=== PATIENT | female | born 1945 | race Caucasian/White ===

== ENCOUNTER 2017-05-02 18:55 | Inpatient (IN) | payer MEDICARE, OTHER ==
[2017-05-02] VITALS (10 sets, daily range): BP systolic 94–135; BP diastolic 60–92; PULSE 77–102; RESP 18–25; TEMP 98.1; O2SAT 90–100
[2017-05-02] MEDS ORDERED: SODIUM CHLORID 0.9% 500 ML INJ 500 ML IV ONE (19:15)
[2017-05-02] MEDS ORDERED: SODIUM CHLORIDE 0.9% FLUSH 10 ML FLUSH IVF PRN (19:15)
[2017-05-02] MEDS ORDERED: ASPIRIN 81 MG CHEW TAB OG-TUBE ONE (19:15)
--- NOTE | 2017-05-02 19:22 | RADRPT ---
EXAM DATE/TIME: 05/02/2017 19:04 [facility] COMPARISON: No previous studies available for comparison. INDICATIONS : Syncope. RADIATION DOSE: 56.35 CTDIvol (mGy) MEDICAL HISTORY : Non-responsive. SURGICAL HISTORY : Non-responsive. ENCOUNTER: Initial ACUITY: 1 day PAIN SCALE: Non-responsive LOCATION: cranial TECHNIQUE: Multiple contiguous axial images were obtained of the head. Using automated exposure control and adj ustment of the mA and/or kV according to patient size, radiation dose was kept as low as reasonably a chievable to obtain optimal diagnostic quality images. DICOM format image data is available electro nically for review and comparison. FINDINGS: CEREBRUM: The ventricles are normal for age. No evidence of midline shift, mass lesion, hemorrhage or acute in farction. No extra-axial fluid collections are seen. POSTERIOR FOSSA: The cerebellum and brainstem are intact. The 4th ventricle is midline. The cerebellopontine angle i s unremarkable. EXTRACRANIAL: The visualized portion of the orbits is intact. SKULL: The calvaria is intact. No evidence of skull fracture. CONCLUSION: 1. No acute intracranial abnormalities. Erik Javed MD on May 02, 2017 at 19:17 Board Certified Radiologist. This report was verified electronically.
--- NOTE | 2017-05-02 19:24 | PD ---
HPI Chief Complaint: cardiopulmonary arrest Time Seen by Provider: 19:01 Travel History International Travel<30 days: No Contact w/Intl Traveler<30days: No Traveled to known affect area: No History of Present Illness HPI The patient is approximately a 70-80 year-old female who presents to the emergency department via EMS after a syncopal episode. EMS states the patient was sitting on a bench when she apparently had a syncopal episode. When EMS arrived they stated the patient's GCS was 3, she has spontaneous circulation with a positive radial pulse, and had spontaneous breathing. When they place the patient into the ambulance struck they stated she became agonal with respirations and then went into ventricular fibrillation. EMS states that they defibrillated the patient twice, she received 1 mg of epinephrine intravenously, and CPR was performed for 5 minutes. EMS states they got return of spontaneous circulation with initial heart rate in the 130s to 140s. They felt there was possible ST elevation in 2, 3, and aVF, therefore, called a STEMI in the field. Upon arrival the patient is intubated, she required no medications for intubation, with an IO in the left lower extremity. The patient was nonverbal, intubated, not withdrawing to pain. The patient initially had no family members or friends with her, no past medical history was noted. [facility] Past Medical History Medical History: Unable to Obtain Past Surgical History Surgical History: Unable to Obtain Social History Tobacco Use: No (unable to obtain) Allergies-Medications (Allergen,Severity, Reaction): Coded Allergies: No Allergy Information Available (Unverified , 05/02/17) Intubated Reported Meds & Prescriptions Reported Meds & Active Scripts Active Review of Systems ROS Limitations: Intubated Except as stated in HPI: all other systems reviewed are Neg Physical Exam Exam Limitations: Clinical Condition Narrative GENERAL: GCS of 3, intubated. SKIN: Focused skin assessment warm/dry. HEAD: Atraumatic. Normocephalic. EYES: Pupils equal and round. Pupils 2-3 mm bilateral and reactive. ENT: No nasal bleeding or discharge. Endotracheal tube in place. NECK: Trachea midline. No JVD. CARDIOVASCULAR: Regular, tachycardic with a heart rate of 110. RESPIRATORY: Bilateral breath sounds via bag valve ventilation. GASTROINTESTINAL: Abdomen soft, non-tender, nondistended. Hepatic and splenic margins not palpable. MUSCULOSKELETAL: No obvious deformities. No clubbing. No cyanosis. No edema. Eyes EOM place left lower extremity. NEUROLOGICAL: GCS of 3. Does not withdraw to pain. Eyes closed, nonverbal with endotracheal tube in place. PSYCHIATRIC: Unable to assess. Data Data Last Documented VS Vital Signs Date Time Temp Pulse Resp B/P (MAP) Pulse Ox O2 Delivery O2 Flow Rate FiO2 05/02/17 19:10 100 100 05/02/17 18:55 98.1 88 18 123/75 (91) Orders Orders Ckmb (Isoenzyme) Profile (05/02/17 19:) Complete Blood Count With Diff (05/02/17 19:) Comprehensive Metabolic Panel (05/02/17:) Magnesium (Mg) (05/02/17:) Prothrombin Time / Inr (Pt) (05/02/17:) Act Partial Throm Time (Ptt) (05/02/17:) Troponin I (05/02/17:) Chest, Single Ap (05/02/17:) Ecg Monitoring (05/02/17:) Bilateral Bp Monitoring (05/02/17 19:) Iv Access Insert/Monitor (05/02/17 19:) Oximetry (05/02/17 19:) Oxygen Administration (05/02/17:) Aspirin Chew (Aspirin Chew) (05/02/17 19:15) Sodium Chloride 0.9% Flush (Ns Flush) (05/02/17 19:15) Sodium Chlorid 0.9% 500 Ml Inj (Ns 500 M (05/02/17 19:15) Ct Brain W/O Iv Contrast(Rout) (05/02/17 ) Admit Order (Ed Use Only) (05/02/17 19:17) CKMB (05/02/17 19:14) CKMB% (05/02/17 19:14) Labs Laboratory Tests Test 05/02/17 19:14 White Blood Count 9.1 TH/MM3 Red Blood Count 3.70 MIL/MM3 Hemoglobin 11.4 GM/DL Hematocrit 33.8 % Mean Corpuscular Volume 91.4 FL Mean Corpuscular Hemoglobin 30.9 PG Mean Corpuscular Hemoglobin Concent 33.8 % Red Cell Distribution Width 13.1 % Platelet Count 265 TH/MM3 Mean Platelet Volume 9.2 FL Neutrophils (%) (Auto) 40.5 % Lymphocytes (%) (Auto) 51.2 % Monocytes (%) (Auto) 6.5 % Eosinophils (%) (Auto) 1.1 % Basophils (%) (Auto) 0.7 % Neutrophils # (Auto) 3.7 TH/MM3 Lymphocytes # (Auto) 4.7 TH/MM3 Monocytes # (Auto) 0.6 TH/MM3 Eosinophils # (Auto) 0.1 TH/MM3 Basophils # (Auto) 0.1 TH/MM3 CBC Comment DIFF FINAL Differential Comment Prothrombin Time 10.6 SEC Prothromb Time International Ratio 1.0 RATIO Activated Partial Thromboplast Time 22.4 SEC Blood Urea Nitrogen 14 MG/DL Creatinine 1.05 MG/DL Random Glucose 203 MG/DL Total Protein 6.7 GM/DL Albumin 3.4 GM/DL Calcium Level 7.9 MG/DL Magnesium Level 2.0 MG/DL Alkaline Phosphatase 65 U/L Aspartate Amino Transf (AST/SGOT) 106 U/L Alanine Aminotransferase (ALT/SGPT) 103 U/L Total Bilirubin 0.4 MG/DL Sodium Level 140 MEQ/L Potassium Level 3.3 MEQ/L Chloride Level 108 MEQ/L Carbon Dioxide Level 17.6 MEQ/L Anion Gap 14 MEQ/L Estimat Glomerular Filtration Rate 45 ML/MIN Total Creatine Kinase 164 U/L Creatine Kinase MB 2.5 NG/ML Troponin I LESS THAN 0.02 NG/ML MDM Medical Decision Making Medical Screen Exam Complete: Yes Emergency Medical Condition: Yes Medical Record Reviewed: Yes Interpretation(s) EKG reveals sinus rhythm with occasional supraventricular premature complex. Q wave noted in lead 2, 3, and aVF. Nonspecific T wave changes with inverted T waves noted in the lateral leads. Laboratory Tests Test 05/02/17 19:14 White Blood Count 9.1 TH/MM3 Red Blood Count 3.70 MIL/MM3 Hemoglobin 11.4 GM/DL Hematocrit 33.8 % Mean Corpuscular Volume 91.4 FL Mean Corpuscular Hemoglobin 30.9 PG Mean Corpuscular Hemoglobin Concent 33.8 % Red Cell Distribution Width 13.1 % Platelet Count 265 TH/MM3 Mean Platelet Volume 9.2 FL Neutrophils (%) (Auto) 40.5 % Lymphocytes (%) (Auto) 51.2 % Monocytes (%) (Auto) 6.5 % Eosinophils (%) (Auto) 1.1 % Basophils (%) (Auto) 0.7 % Neutrophils # (Auto) 3.7 TH/MM3 Lymphocytes # (Auto) 4.7 TH/MM3 Monocytes # (Auto) 0.6 TH/MM3 Eosinophils # (Auto) 0.1 TH/MM3 Basophils # (Auto) 0.1 TH/MM3 CBC Comment DIFF FINAL Differential Comment Prothrombin Time 10.6 SEC Prothromb Time International Ratio 1.0 RATIO Activated Partial Thromboplast Time 22.4 SEC Blood Urea Nitrogen 14 MG/DL Creatinine 1.05 MG/DL Random Glucose 203 MG/DL Total Protein 6.7 GM/DL Albumin 3.4 GM/DL Calcium Level 7.9 MG/DL Magnesium Level 2.0 MG/DL Alkaline Phosphatase 65 U/L Aspartate Amino Transf (AST/SGOT) 106 U/L Alanine Aminotransferase (ALT/SGPT) 103 U/L Total Bilirubin 0.4 MG/DL Sodium Level 140 MEQ/L Potassium Level 3.3 MEQ/L Chloride Level 108 MEQ/L Carbon Dioxide Level 17.6 MEQ/L Anion Gap 14 MEQ/L Estimat Glomerular Filtration Rate 45 ML/MIN Total Creatine Kinase 164 U/L Creatine Kinase MB 2.5 NG/ML Troponin I LESS THAN 0.02 NG/ML Last Impressions Chest X-Ray 05/02/17 1901 Signed Impressions: Service Date/Time: Tuesday, May 02, 2017 19:25 - CONCLUSION: 1. Endotracheal tube tip in proximal right mainstem bronchus. Dependent atelectasis in the lungs. No pneumothorax. Erik Javed MD Head CT 05/02/17 0000 Signed Impressions: Service Date/Time: Tuesday, May 02, 2017 19:04 - CONCLUSION: 1. No acute intracranial abnormalities. Erik Javed MD Differential Diagnosis Differential diagnosis includes STEMI, ventricular arrhythmia, dysrhythmia, syncope, electrolyte abnormality. Narrative Course IV was established, labs are drawn and sent, the patient was placed on cardiac telemetry monitoring and continuous pulse ox imaging monitoring. The patient was noted to have positive femoral pulses and positive radial pulses, GCS of 3 who is not withdrawing to pain. CT of the brain was obtained. Chest x-ray was ordered. I immediately called the stem dryer maintainer on-call, Dr. Moy, who recommends no amiodarone and less serious repeat of the arrhythmia. I then called the on-call dimpling machine operator, Dr. Soto, who immediately came to the emergency department to evaluate the patient for possible code kill. The patient then went to the CT suite. I did order aspirin 162 mg via the OG tube. The patient was evaluated by the dimpling machine operator and the stem dryer maintainer in the emergency department and will be admitted to the intensive care unit for therapeutic hypothermia. Critical Care Narrative Aggregate critical care time was 40 minutes. Time to perform other separately billable procedures was not included in the critical care time. My time did not include minutes spent treating any other patients simultaneously or on activities that did not directly contribute to the patient's treatment. The services I provided to this patient were to treat and/or prevent clinically significant deterioration that could result in: Anoxia, hypoxia, arrhythmia, sudden . I provided critical care services requiring my management, as noted below: Chart data review, documentation time, medication orders and management, vital sign assessments/reviewing monitor data, ordering and reviewing lab tests, ordering and interpreting/reviewing x-rays and diagnostic studies, care of the patient and discussion of the patient with the admitting physicians. Physician Communication Physician Communication I discussed the patient with Dr. Soto who agrees with admission. Diagnosis Primary Impression: Ventricular fibrillation Additional Impression: Syncope Qualified Codes: R55 - Syncope and collapse Admitting Information Admitting Physician Requests: Admit Condition: Critical Dagoberto Sahni MD May 02, 2017 19:24
[2017-05-02] MEDS ORDERED: CHLORHEXIDINE GLUCONATE 2 % 1 PACK (2 CLOTHS) TOP PRN (19:30)
[2017-05-02] MEDS ORDERED: BISACODYL 10 MG SUPP RECTAL PRN (19:30)
[2017-05-02] MEDS ORDERED: RESP: ALBUTEROL 2.5 MG/IPRATROPIUM 0.5 MG NEB (PRN) INH (19:30)
[2017-05-02] MEDS ORDERED: MORPHINE SULFATE 4 MG/ML INJ IV PUSH PRN (19:30)
[2017-05-02] MEDS ORDERED: LACTULOSE SYRUP 20 GM/30 ML CUP PO PRN (19:30)
[2017-05-02] MEDS ORDERED: ACETAMINOPHEN 325 MG TAB PO PRN (19:30)
[2017-05-02] MEDS ORDERED: ONDANSETRON HCL 4 MG/2 ML VIAL IV PUSH PRN (19:30)
[2017-05-02] MEDS ORDERED: MISCELLANEOUS NURSING INFORMATION XX SCH (19:30)
[2017-05-02] MEDS ORDERED: SENNOSIDES 8.6 MG TAB PO PRN (19:30)
[2017-05-02] MEDS ORDERED: MAGNESIUM HYDROXIDE SUSP 30 ML CUP PO PRN (19:30)
[2017-05-02] MEDS ORDERED: SODIUM CHLORIDE 0.9% FLUSH 10 ML FLUSH IV FLUSH PRN (19:30)
--- NOTE | 2017-05-02 19:38 | RADRPT ---
EXAM DATE/TIME: 05/02/2017 19:25 [facility] COMPARISON: No previous studies available for comparison. INDICATIONS : STEMI ALERT. MEDICAL HISTORY : None. SURGICAL HISTORY : None. ENCOUNTER: Initial ACUITY: 1 day PAIN SCORE: Non-responsive. LOCATION: Bilateral chest FINDINGS: Endotracheal tube tip is in proximal right mainstem bronchus. This should be withdrawn about 3 cm. Mi nimal basilar atelectasis. No pneumothorax or effusion. CONCLUSION: 1. Endotracheal tube tip in proximal right mainstem bronchus. Dependent atelectasis in the lungs. No pneumothorax. Erik Javed MD on May 02, 2017 at 19:35 Board Certified Radiologist. This report was verified electronically.
[2017-05-02 20:15] LABS: AUTOMATED NEUTROPHIL # 3.7 TH/MM3 (1.8-7.7); BASOPHIL # 0.1 TH/MM3 (0-0.2); BASOPHIL % 0.7 % (0.0-2.0); EOSINOPHIL # 0.1 TH/MM3 (0-0.4); EOSINOPHIL % 1.1 % (0.0-4.0); HEMATOCRIT 33.8 % (35.0-46.0); HEMO FLAGS DIFF FINAL; LYMPH % 51.2 % (9.0-44.0); LYMPHOCYTE # 4.7 TH/MM3 (1.0-4.8); MEAN CELL VOLUME 91.4 FL (80.0-100.0); MEAN CORPUSCULAR HEMOGLOBIN 30.9 PG (27.0-34.0); MEAN CORPUSCULAR HGB CONC 33.8 % (32.0-36.0); MONO % 6.5 % (0.0-8.0); NEUT % 40.5 % (16.0-70.0); PLATELET COUNT 265 TH/MM3 (150-450); RED CELL DISTRIBUTION WIDTH 13.1 % (11.6-17.2); WHITE BLOOD COUNT 9.1 TH/MM3 (4.0-11.0)
[2017-05-02] MEDS ORDERED: PROPOFOL 500 MG/50 ML INJ 50 ML ONE (20:15)
[2017-05-02 20:24] LABS: APTT (PATIENT) 22.4 SEC (24.3-30.1); PROTHROMBIN TIME - PATIENT 10.6 SEC (9.8-11.6)
[2017-05-02] MEDS ORDERED: MIDAZOLAM HCL 5 MG/ML VIAL (1 ML) ONE (20:38)
[2017-05-02 20:43] LABS: ANION GAP 14 MEQ/L (5-15); AST (GOT) 106 U/L (15-37); BICARBONATE 17.6 MEQ/L (21.0-32.0); BLOOD UREA NITROGEN 14 MG/DL (7-18); CHLORIDE 108 MEQ/L (98-107); GLOMERULAR FILTRATION RATE 45 ML/MIN (>89); POTASSIUM 3.3 MEQ/L (3.5-5.1); SODIUM (NA) 140 MEQ/L (136-145)
[2017-05-02 20:44] LABS: ALT (GPT) 103 U/L (10-53)
[2017-05-02 20:48] LABS: ALKALINE PHOSPHATASE 65 U/L (45-117); CREATINE KINASE 164 U/L (26-192); TOTAL BILIRUBIN ADULT 0.4 MG/DL (0.2-1.0)
[2017-05-02 21:00] LABS: CKMB 2.5 NG/ML (0.5-3.6)
[2017-05-02] MEDS ORDERED: PROPOFOL 500 MG/50 ML INJ 50 ML IV ONE (21:00)
[2017-05-02] MEDS ORDERED: MIDAZOLAM HCL 5 MG/ML VIAL (1 ML) IV ONE (21:00)
[2017-05-02] MEDS: DOCUSATE SODIUM 50 MG/SENNA 8.6 MG TAB PO SCH (21:00)
[2017-05-02 21:29] LABS: BLOOD GAS CARBOXYHEMOGLOBIN 0.7 % (0-4); BLOOD GAS HCO3 22 mmol/L (22-26); BLOOD GAS METHEMOGLOBIN 1.1 % (0-2); BLOOD GAS O2 HGB SATURATION 98 % (90-100); BLOOD GAS OXYGEN CONTENT 17.1 Vol % (12.0-20.0); BLOOD GAS PCO2 38 mmHg (38-42); BLOOD GAS PO2 323 mmHg (61-120); BLOOD GAS TOTAL HGB 11.8 G/DL (12.0-16.0); TEMP CORR TO 98.6
[2017-05-02 21:30] LABS: CRITICAL VALUE NO; DRAW SITE RT BRACHIAL; FIO2 100 %; NUMBER OF ARTERIAL PUNCTURES 1; OXYGEN DEVICE VENTILATOR; STAT NO; VENT SETTINGS 18/500/IT1.0/5PEEP
--- NOTE | 2017-05-02 22:18 | HHI.HP ---
HPI Service Critical Care Medicine Primary Care Physician Unknown Admission Diagnosis syncope, ventricular fibrillation Diagnosis: Travel History International Travel<30 Days: No Contact w/Intl Traveler <30 Da: No Traveled to Known Affected Are: No History of Present Illness 60-70 something year-old female who presents after a syncopal episode. EMS states the patient was sitting on a bench when she apparently had a syncopal episode. When EMS arrived she was GCS was 3, she has spontaneous circulation with a positive radial pulse, and had spontaneous breathing. When they place the patient into the ambulance truck she became agonal with respirations and then went into ventricular fibrillation. They defibrillated the patient twice, she received 1 mg of epinephrine intravenously, and CPR was performed for 5 minutes. EMS states they got return of spontaneous circulation with initial heart rate in the 130s to 140s. They felt there was possible ST elevation in 2 , 3, and aVF, therefore, called a STEMI in the field. Upon arrival the patient is intubated, she required no medications for intubation, with an IO in the left lower extremity. During my evaluation and assessment patient was nonverbal , intubated, not withdrawing to pain. She was immediately evaluated by Dr. Greene senior php developer on-call who is planning to proceed further cardiac workup if there is meaningful neurological improvement. Due to poor neurological exam the therapeutic hypothermia protocol was initiated. Shortly after the transfer to ICU patient starts withdrawing to pain neurologically improving. Review of Systems ROS Unobtainable patient sedated and intubated Past Family Social History Allergies: Coded Allergies: No Allergy Information Available (Unverified , 05/02/17) Intubated Past Medical History Unobtainable Past Surgical History Unobtainable Reported Medications Unobtainable Active Ordered Medications Current Medications Medications (Trade) Dose Ordered Sig/Dana Route PRN Reason Start Time Stop Time Status Last Admin Dose Admin Sodium Chloride 1,000 ml @ 84 mls/hr [id number] IV 05/02/17 20:00 05/02/17 22:54 Sodium Chloride (NS Flush) 2 ml UNSCH PRN IV FLUSH FLUSH AFTER USING IV ACCESS 05/02/17 19:30 Sodium Chloride (NS Flush) 2 ml BID IV FLUSH 05/02/17 21:00 05/02/17 22:56 Acetaminophen (Tylenol) 650 mg Q6H PRN PO PAIN 1-5 AND/OR FEVER >101F 05/02/17 19:30 Morphine Sulfate (Morphine Inj) 2 mg Q2H PRN IV PUSH PAIN SCALE 6 TO 10 05/02/17 19:30 Famotidine (Pepcid Inj) 20 mg Q12HR IV PUSH 05/02/17 21:00 05/02/17 23:02 Artificial Tears (Tears Naturale Opth Soln) 1 drop TID EACH EYE 05/03/17 09:00 Ondansetron HCl (Zofran Inj) 4 mg Q6H PRN IV PUSH NAUSEA OR VOMITING 05/02/17 19:30 Albuterol/ Ipratropium (Duoneb Neb) 1 ampule Q6HR NEB INH 05/02/17 22:00 05/02/17 22:59 Albuterol/ Ipratropium (Duoneb Neb) 1 ampule Q2HR NEB PRN INH WHEEZING 05/02/17 19:30 Heparin Sodium (Porcine) (Heparin Inj) 5,000 units Q8H SQ 05/02/17 20:00 05/02/17 23:01 Miscellaneous Information 1 [id number] XX 05/02/17 19:30 Chlorhexidine Gluconate (Chlorhexidine 2% Cloth) 3 pack Taper DAILY@04 TOP 05/03/17 04:00 04/29/18 03:59 Chlorhexidine Gluconate (Chlorhexidine 2% Cloth) 3 pack UNSCH PRN TOP HYGIENIC CARE 05/02/17 19:30 Senna/Docusate Sodium (Senia-Colace) 1 tab BID PO 05/02/17 21:00 Magnesium Hydroxide (Milk Of Magnesia Liq) 30 ml Q12H PRN PO Mild constipation 05/02/17 19:30 Sennosides (Senokot) 17.2 mg Q12H PRN PO Moderate constipation 05/02/17 19:30 Bisacodyl (Dulcolax Supp) 10 mg DAILY PRN RECTAL SEVERE CONSITIPATION 05/02/17 19:30 Lactulose (Lactulose Liq) 30 ml DAILY PRN PO SEVERE CONSITIPATION 05/02/17 19:30 Chlorhexidine Gluconate (Peridex 0.12% Liq) 15 ml BID@08,20 MT 05/02/17 20:00 05/02/17 22:55 Propofol 100 ml @ 2.139 mls/ hr TITRATE PRN IV SEDATION 05/02/17 22:30 05/03/17 00:38 Midazolam HCl 100 ml @ 2 mls/hr TITRATE PRN IV SEDATION 05/02/17 22:45 05/02/17 22:39 Fentanyl Citrate 250 ml @ 5 mls/hr TITRATE PRN IV Sedation 05/02/17 22:45 Miscellaneous Information D/C ICU ELECTROLYTE ORDERS... UNSCH PRN .XX SEE DOSE INSTRUCTIONS 05/03/17 00:30 Miscellaneous Information ICU - CALL ORDERING PHYSIC... UNSCH PRN .XX SEE DOSE INSTRUCTIONS 05/03/17 00:30 Potassium Chloride 100 ml @ 25 mls/hr UNSCH PRN IV ELECTROLYTE REPLACEMENT 05/03/17 00:30 05/03/17 00:38 Potassium Bicarb/ Potassium Chloride (K-Lyte Cl Eff) 50 meq UNSCH PRN PO ELECTROLYTE REPLACEMENT 05/03/17 00:30 Potassium Chloride 100 ml @ 50 mls/hr UNSCH PRN IV ELECTROLYTE REPLACEMENT 05/03/17 00:30 Magnesium Sulfate 4 gm/Sodium Chloride 108 ml @ 54 mls/hr UNSCH PRN IV ELECTROLYTE REPLACEMENT 05/03/17 00:30 Magnesium Sulfate 2 gm/Sodium Chloride 104 ml @ 52 mls/hr UNSCH PRN IV ELECTROLYTE REPLACEMENT 05/03/17 00:30 Magnesium Oxide (Mag-Ox) 800 mg UNSCH PRN PO ELECTROLYTE REPLACEMENT 05/03/17 00:30 Sodium Phosphate 30 mmol/Sodium Chloride 260 ml @ 43.333 mls/ hr UNSCH PRN IV ELECTROLYTE REPLACEMENT 05/03/17 00:30 Potassium Phosphate (K-Phos) 2,000 mg UNSCH PRN PO ELECTROLYTE REPLACEMENT 05/03/17 00:30 Potassium Phosphate 30 mmol/ Sodium Chloride 260 ml @ 43.333 mls/ hr UNSCH PRN IV ELECTROLYTE REPLACEMENT 05/03/17 00:30 Family History Unobtainable Social History Unobtainable Physical Exam Vital Signs Vital Signs Date Time Temp Pulse Resp B/P (MAP) Pulse Ox O2 Delivery O2 Flow Rate FiO2 05/02/17 19:40 93 100 05/02/17 19:30 98 100 05/02/17 19:10 100 100 05/02/17 18:55 98.1 88 18 123/75 (91) 99 Physical Exam GENERAL: The patient is comatose and intubated SKIN: Focused skin assessment warm/dry. HEAD: Atraumatic. Normocephalic. EYES: Pupils equal and round. Pupils 2-3 mm bilateral and reactive. ENT: No nasal bleeding or discharge. Endotracheal tube in place. NECK: Trachea midline. No JVD. CARDIOVASCULAR: Regular, tachycardic with a heart rate of 110. RESPIRATORY: Bilateral breath sounds via bag valve ventilation. GASTROINTESTINAL: Abdomen soft, non-tender, nondistended. Hepatic and splenic margins not palpable. MUSCULOSKELETAL: No obvious deformities. No clubbing. No cyanosis. No edema. Eyes EOM place left lower extremity. NEUROLOGICAL: GCS of 3. Does not withdraw to pain. Eyes closed, nonverbal with endotracheal tube in place. Laboratory Laboratory Tests Test 05/02/17 19:14 05/02/17 21:15 05/02/17 21:53 White Blood Count 9.1 Red Blood Count 3.70 Hemoglobin 11.4 Hematocrit 33.8 Mean Corpuscular Volume 91.4 Mean Corpuscular Hemoglobin 30.9 Mean Corpuscular Hemoglobin Concent 33.8 Red Cell Distribution Width 13.1 Platelet Count 265 Mean Platelet Volume 9.2 Neutrophils (%) (Auto) 40.5 Lymphocytes (%) (Auto) 51.2 Monocytes (%) (Auto) 6.5 Eosinophils (%) (Auto) 1.1 Basophils (%) (Auto) 0.7 Neutrophils # (Auto) 3.7 Lymphocytes # (Auto) 4.7 Monocytes # (Auto) 0.6 Eosinophils # (Auto) 0.1 Basophils # (Auto) 0.1 CBC Comment DIFF FINAL Differential Comment Prothrombin Time 10.6 Prothromb Time International Ratio 1.0 Activated Partial Thromboplast Time 22.4 Blood Urea Nitrogen 14 Creatinine 1.05 Random Glucose 203 Total Protein 6.7 Albumin 3.4 Calcium Level 7.9 Magnesium Level 2.0 Alkaline Phosphatase 65 Aspartate Amino Transf (AST/SGOT) 106 Alanine Aminotransferase (ALT/SGPT) 103 Total Bilirubin 0.4 Sodium Level 140 Potassium Level 3.3 Chloride Level 108 Carbon Dioxide Level 17.6 Anion Gap 14 Estimat Glomerular Filtration Rate 45 Total Creatine Kinase 164 Creatine Kinase MB 2.5 Troponin I LESS THAN 0.02 Blood Gas Puncture Site RT BRACHIAL Blood Gas Patient Temperature 98.6 Blood Gas HCO3 22 Blood Gas Base Excess -2.0 Blood Gas Oxygen Saturation 98 Arterial Blood pH 7.39 Arterial Blood Partial Pressure CO2 38 Arterial Blood Partial Pressure O2 323 Arterial Blood Oxygen Content 17.1 Arterial Blood Carboxyhemoglobin 0.7 Arterial Blood Methemoglobin 1.1 Blood Gas Hemoglobin 11.8 Oxygen Delivery Device VENTILATOR Blood Gas Ventilator Setting 18/500/IT1.0/5PEEP Blood Gas Inspired Oxygen 100 Result Diagram: 05/02/17191305/02/171913 Imaging Last 24 hours Impressions Chest X-Ray 05/02/171900 Signed Impressions: Service Date/Time: Tuesday, May 02, 2017 19:25 - CONCLUSION: 1. Endotracheal tube tip in proximal right mainstem bronchus. Dependent atelectasis in the lungs. No pneumothorax. Erik Javed MD Septic Shock Reassessment Septic shock perfusion: reassessment completed Caprini VTE Risk Assessment Caprini VTE Risk Assessment: Mod/High Risk (score >= 2) Caprini Risk Assessment Model Point Value = 1 Point Value = 2 Point Value = 3 Point Value = 5 Age 41-60 Minor surgery BMI > 25 kg/m2 Swollen legs Varicose veins or History of unexplained or recurrent spontaneous Oral contraceptives or hormone replacement Sepsis (< 1 month) Serious lung disease, including pneumonia (< 1 month) Abnormal pulmonary function Acute myocardial infarction Congestive heart failure (< 1 month) History of inflammatory bowel disease Medical patient at bed rest Age 61-74 Arthroscopic surgery Major open surgery (> 45 min) Laparoscopic surgery (> 45 min) Malignancy Confined to bed (> 72 hours) Immobilizing plaster cast Central venous access Age >= 75 History of VTE Family history of VTE Factor V Leiden Prothrombin [id number] Lupus anticoagulant Anticardiolipin antibodies Elevated serum homocysteine Heparin-induced thrombocytopenia Other congenital or acquired thrombophilia Stroke (< 1 month) Elective arthroplasty Hip, pelvis, or leg fracture Acute spinal cord injury (< 1 month) Prophylaxis Regimen Total Risk Factor Score Risk Level Prophylaxis Regimen 0-1 Low Early ambulation 2 Moderate Order ONE of the following: *Sequential Compression Device (SCD) *Heparin 5000 units SQ BID 3-4 Higher Order ONE of the following medications: *Heparin 5000 units SQ TID *Enoxaparin/Lovenox 40 mg SQ daily (WT < 150 kg, CrCl > 30 mL/min) *Enoxaparin/Lovenox 30 mg SQ daily (WT < 150 kg, CrCl > 10-29 mL/min) *Enoxaparin/Lovenox 30 mg SQ BID (WT < 150 kg, CrCl > 30 mL/min) AND/OR *Sequential Compression Device (SCD) 5 or more Highest Order ONE of the following medications: *Heparin 5000 units SQ TID (Preferred with Epidurals) *Enoxaparin/Lovenox 40 mg SQ daily (WT < 150 kg, CrCl > 30 mL/min) *Enoxaparin/Lovenox 30 mg SQ daily (WT < 150 kg, CrCl > 10-29 mL/min) *Enoxaparin/Lovenox 30 mg SQ BID (WT < 150 kg, CrCl > 30 mL/min) AND *Sequential Compression Device (SCD) Assessment and Plan Assessment and Plan Respiratory failure - Intubated for an airway protection - No weaning until neurologically improved - Continue mechanical ventilation - DuoNeb scheduled and when necessary - Vent bundle Cardiac arrest - V. fib arrest - Cardiology input appreciated - Workup after rewarmed - 2-D echo - Series of troponins and EKGs - Therapeutic hypothermia protocol Acute kidney injury - Unknown baseline - IV fluid rehydration - Strict I's and O's - Electrolyte replacement per ICU protocol Hypoglycemia - Insulin sliding scale DVT GI prophylaxis - Teds SCDs - Subcutaneous heparin - Pepcid Critical Care: The total critical care time was 35 minutes. Time to perform other separately billable procedures was not included in the critical care time. Donte Soto MD May 02, 2017 22:18
[2017-05-02] MEDS: MIDAZOLAM 100 MG/NS 100 ML DRIP Premix IV PRN (22:39)
[2017-05-02] MEDS ORDERED: fentaNYL 2,500 MCG/NS 250 ML IV PRN (22:45)
[2017-05-02] MEDS: SODIUM CHLOR 0.9% 1000 ML INJ 1,000 ML IV SCH (22:54)
[2017-05-02] MEDS: CHLORHEXIDINE 0.12% (ORAL KIT) 15 ML CUP MT SCH (22:55)
[2017-05-02] MEDS: SODIUM CHLORIDE 0.9% FLUSH 10 ML FLUSH IV FLUSH SCH (22:56)
[2017-05-02] MEDS: RESP: ALBUTEROL 2.5 MG/IPRATROPIUM 0.5 MG NEB (SCH) INH (22:59)
[2017-05-02] MEDS: HEPARIN SODIUM - SQ 10,000 UNITS/ML VIAL SQ SCH (23:01)
[2017-05-02] MEDS: FAMOTIDINE 20 MG/2 ML VIAL IV PUSH SCH (23:02)
[2017-05-03] VITALS (31 sets, daily range): BP systolic 84–106; BP diastolic 50–68; PULSE 50–74; RESP 18–19; O2SAT 100
[2017-05-03] MEDS ORDERED: ICU - CALL ORDERING PHYSICIAN PRN (00:30)
[2017-05-03] MEDS ORDERED: ICU - SODIUM PHOSPHATE 30 MMOL/NS 250 ML IV PRN ×2 (00:30)
[2017-05-03] MEDS ORDERED: ICU - MAGNESIUM SULFATE 2 GM/NS 100 ML IV PRN ×2 (00:30)
[2017-05-03] MEDS ORDERED: ICU - MAGNESIUM OXIDE 400 MG TAB PO PRN (00:30)
[2017-05-03] MEDS ORDERED: ICU - MAGNESIUM SULFATE 4 GM/NS 100 ML IV PRN ×2 (00:30)
[2017-05-03] MEDS ORDERED: ICU - POTASSIUM PHOSPHATE 30 MMOL/NS 250 ML IV PRN ×2 (00:30)
[2017-05-03] MEDS ORDERED: ICU - POTASSIUM PHOSPHATE MONOBASIC 500 MG TAB PO PRN (00:30)
[2017-05-03] MEDS ORDERED: POTASSIUM CHLORIDE 25 MEQ EFFERVESCENT TAB PO PRN (00:30)
[2017-05-03] MEDS ORDERED: ICU - D/C ICU ELECTROLYTE ORDERS PRN (00:30)
[2017-05-03] MEDS: PROPOFOL 1000 MG/100 ML IV PRN ×5 (00:38→23:50)
[2017-05-03] MEDS: ICU - POTASSIUM CHLORIDE/AQUEOUS SOLN 40 MEQ/100 ML IVPB IV PRN ×4 (00:38→16:05)
--- NOTE | 2017-05-03 01:36 | PD.PROCEDR ---
Procedure Note Procedure Central line placement A time-out was completed verifying correct patient, procedure, site, positioning , and special equipment if applicable. The patient was placed in a dependent position appropriate for central line placement based on the vein to be cannulated. The patients left groin was prepped and draped in sterile fashion. 1% Lidocaine was used to anesthetize the surrounding skin area. A triple lumen hypothermia triple lumen catheter was introduced into the the common femoral vein using the Seldinger technique and under ultrasound guidance. The catheter was threaded smoothly over the guide wire and appropriate blood return was obtained. Each lumen of the catheter was evacuated of air and flushed with sterile saline. The catheter was then sutured in place to the skin and a sterile dressing applied. Perfusion to the extremity distal to the point of catheter insertion was checked and found to be adequate. Estimated Blood Loss: 1ml The patient tolerated the procedure well and there were no complications. Donte Soto MD May 03, 2017 01:36
[2017-05-03] MEDS: RESP: ALBUTEROL 2.5 MG/IPRATROPIUM 0.5 MG NEB (SCH) INH ×4 (03:36→20:05)
[2017-05-03] MEDS: CHLORHEXIDINE GLUCONATE 2 % 1 PACK (2 CLOTHS) TOP SCH (04:00)
--- NOTE | 2017-05-03 04:29 | RADRPT ---
EXAM DATE/TIME: 05/03/2017 03:10 [place] COMPARISON: CHEST SINGLE AP, May 02, 2017, 19:25. INDICATIONS : Short of breath. MEDICAL HISTORY : None. SURGICAL HISTORY : None. ENCOUNTER: Subsequent ACUITY: 2 days PAIN SCORE: Non-responsive. LOCATION: Bilateral chest FINDINGS: ET tube tip remains at the orifice of the right main bronchus. Gastric tube traverses the field-of-v iew. There is persistent patchy areas of consolidation in the left lower lung and evidence of elevat ion left hemidiaphragm. Right lung is clear. CONCLUSION: 1. ET tube tip remains at the origin of the right bronchus. 2. Patchy left lower lobe infiltrates with associated volume loss. Sidney Nguyen MD on May 03, 2017 at 4:26 Board Certified Radiologist. This report was verified electronically.
[2017-05-03 04:35] LABS: INTERNATIONAL NORMALIZED RATIO 1.1 RATIO
[2017-05-03 04:36] LABS: AUTOMATED NEUTROPHIL # 7.9 TH/MM3 (1.8-7.7); BASOPHIL % 0.2 % (0.0-2.0); HEMATOCRIT 30.4 % (35.0-46.0); HEMO FLAGS DIFF FINAL; LYMPH % 13.3 % (9.0-44.0); LYMPHOCYTE # 1.3 TH/MM3 (1.0-4.8); MEAN CELL VOLUME 89.4 FL (80.0-100.0); MEAN CORPUSCULAR HEMOGLOBIN 31.1 PG (27.0-34.0); MEAN CORPUSCULAR HGB CONC 34.8 % (32.0-36.0); MONO % 5.6 % (0.0-8.0); NEUT % 80.9 % (16.0-70.0); PLATELET COUNT 199 TH/MM3 (150-450); RED CELL DISTRIBUTION WIDTH 13.4 % (11.6-17.2); WHITE BLOOD COUNT 9.8 TH/MM3 (4.0-11.0)
[2017-05-03 04:52] LABS: ALT (GPT) 110 U/L (10-53); ANION GAP 12 MEQ/L (5-15); AST (GOT) 98 U/L (15-37); BICARBONATE 19.3 MEQ/L (21.0-32.0); BLOOD UREA NITROGEN 14 MG/DL (7-18); CHLORIDE 112 MEQ/L (98-107); GLOMERULAR FILTRATION RATE 86 ML/MIN (>89); MAGNESIUM 1.9 MG/DL (1.5-2.5); POTASSIUM 3.5 MEQ/L (3.5-5.1); SODIUM (NA) 143 MEQ/L (136-145)
[2017-05-03 04:54] LABS: ALKALINE PHOSPHATASE 55 U/L (45-117); TOTAL BILIRUBIN ADULT 0.5 MG/DL (0.2-1.0)
[2017-05-03] MEDS: HEPARIN SODIUM - SQ 10,000 UNITS/ML VIAL SQ SCH ×3 (05:24→20:31)
--- NOTE | 2017-05-03 05:29 | PD.PROCEDR ---
Procedure Note Procedure Arterial line placement A time-out was completed verifying correct patient, procedure, site, positioning , and special equipment if applicable. Allens test was performed to ensure adequate perfusion. The patients right wrist was prepped and draped in sterile fashion. 1% Lidocaine was used to anesthetize the area. A 18G Arrow arterial line was introduced into the radial artery. The catheter was threaded over the guide wire and the needle was removed with appropriate pulsatile blood return. The catheter was then sutured in place to the skin and a sterile dressing applied. Perfusion to the extremity distal to the point of catheter insertion was checked and found to be adequate. Estimated Blood Loss: 1ml The patient tolerated the procedure well and there were no complications. Donte Soto MD May 03, 2017 05:29
--- NOTE | 2017-05-03 05:38 | MB ---
cc: BLAINE MCINTYRE DATE OF CONSULTATION 05/02/2017 HISTORY OF PRESENT ILLNESS The patient is an elderly female who was at a alliance party, was sitting on a bench and suddenly had a syncopal episode. She underwent CPR and was found to be in ventricle fibrillation by EMS. She was defibrillated, is currently in sinus rhythm but she is intubated and is on the ventilator. She does have previous history based on the family report. She was told she had previous myocardial infarction in the past but at this time this is unclear. She saw heater operator helper in the past in [place]. She reportedly has no recent angina or heart failure symptoms. PAST MEDICAL HISTORY Positive for - 1. Hypertension. 2. Dyslipidemia. 3. History of cholecystectomy. MEDICATIONS She takes medication for hypertension and dyslipidemia. ALLERGIES She is intolerant of certain antibiotics which caused GI discomfort. SOCIAL HISTORY The patient does not smoke. She does not drink alcohol. She has lived with significant other for the last 30 years. FAMILY HISTORY Positive for heart disease in her sister. REVIEW OF SYSTEMS Review of systems is otherwise negative. PHYSICAL EXAMINATION VITAL SIGNS: Blood pressure 110/78, pulse 85. HEENT: The patient is intubated, sedated. Pupils are reactive. NECK: Good upstrokes. LUNGS: Clear. HEART: Regular with no murmur or gallop. ABDOMEN: Soft, without bruits. EXTREMITIES: Without edema. 1-2+ distal pulses. NEURO EXAM: Grossly nonfocal. EKG was reviewed and showed sinus rhythm, PACs and inferior and inferolateral Q-waves, no ST elevations. DIAGNOSIS 1. Ventricular fibrillation arrest. 2. EKG consistent with old inferolateral myocardial infarction. 3. Hypertension. 4. Dyslipidemia. DISPOSITION The patient will be cooled per protocol. Her EKG shows no evidence of ST elevation myocardial infarction. She will be monitored in the ICU. We will obtain echocardiogram to evaluate her left ventricular function. If she has significant improvement of her neurologic status, we will proceed with further cardiac evaluation. I will follow her for cardiology during her hospitalization. The plan was discussed with the patient's family. MD AZALEA Arechiga/TREVIN /7:40 PM /5:23 AM JENNIFER
[2017-05-03] MEDS: SODIUM CHLOR 0.9% 1000 ML INJ 1,000 ML IV SCH ×3 (08:04→21:52)
[2017-05-03] MEDS: ARTIFICIAL TEARS OPTH SOLN 15 ML BTL EACH EYE SCH ×3 (09:00→17:35)
[2017-05-03] MEDS: CHLORHEXIDINE 0.12% (ORAL KIT) 15 ML CUP MT SCH ×2 (09:56→20:00)
[2017-05-03] MEDS: FAMOTIDINE 20 MG/2 ML VIAL IV PUSH SCH ×2 (09:57→20:31)
[2017-05-03] MEDS: SODIUM CHLORIDE 0.9% FLUSH 10 ML FLUSH IV FLUSH SCH ×2 (09:57→20:31)
[2017-05-03] MEDS: DOCUSATE SODIUM 50 MG/SENNA 8.6 MG TAB PO SCH ×2 (09:57→20:31)
[2017-05-03 11:38] LABS: BICARBONATE 19.5 MEQ/L (21.0-32.0); MAGNESIUM 1.9 MG/DL (1.5-2.5)
--- NOTE | 2017-05-03 11:46 | HHI.CCPN ---
Subjective Remarks/Hospital Course 60-70 something year-old female who presents after a syncopal episode. EMS states the patient was sitting on a bench when she apparently had a syncopal episode. When EMS arrived she was GCS was 3, she has spontaneous circulation with a positive radial pulse, and had spontaneous breathing. When they place the patient into the ambulance truck she became agonal with respirations and then went into ventricular fibrillation. They defibrillated the patient twice, she received 1 mg of epinephrine intravenously, and CPR was performed for 5 minutes. EMS states they got return of spontaneous circulation with initial heart rate in the 130s to 140s. They felt there was possible ST elevation in 2 , 3, and aVF, therefore, called a STEMI in the field. Upon arrival the patient is intubated, she required no medications for intubation, with an IO in the left lower extremity. During my evaluation and assessment patient was nonverbal , intubated, not withdrawing to pain. She was immediately evaluated by Dr. Greene chip frier on-call who is planning to proceed further cardiac workup if there is meaningful neurological improvement. Due to poor neurological exam the therapeutic hypothermia protocol was initiated. Shortly after the transfer to ICU patient starts withdrawing to pain neurologically improving. 05/03/17: Unstable hemodynamics requiring vasopressor support. Gas exchange acceptable. ET tube withdrawn 2 cm after CXR today. Objective Vital Signs Date Time Temp Pulse Resp B/P (MAP) Pulse Ox O2 Delivery O2 Flow Rate FiO2 05/03/17 08:47 100 40 05/03/17 06:00 54 19 93/57 (69) 05/02/17 18:55 98.1 Intake and Output 05/03/17 05/03/17 05/04/17 08:00 16:00 00:00 Intake Total 737 ml 50 ml Output Total 870 ml Balance -133 ml 50 ml Result Diagram: 05/03/17 0410 05/03/17 1030 Other Results Laboratory Tests Test 05/02/17 21:15 Blood Gas Puncture Site RT BRACHIAL Blood Gas Patient Temperature 98.6 Blood Gas HCO3 22 mmol/L (22-26) Blood Gas Base Excess -2.0 mmol/L (-2-2) Blood Gas Oxygen Saturation 98 % (90-100) Arterial Blood pH 7.39 (7.380-7.420) Arterial Blood Partial Pressure CO2 38 mmHg (38-42) Arterial Blood Partial Pressure O2 323 mmHg (61-120) Arterial Blood Oxygen Content 17.1 Vol % (12.0-20.0) Arterial Blood Carboxyhemoglobin 0.7 % (0-4) Arterial Blood Methemoglobin 1.1 % (0-2) Blood Gas Hemoglobin 11.8 G/DL (12.0-16.0) Oxygen Delivery Device VENTILATOR Blood Gas Ventilator Setting 18/500/IT1.0/5PEEP Blood Gas Inspired Oxygen 100 % Imaging Last 24 hours Impressions Chest X-Ray 05/02/17 1901 Signed Impressions: Service Date/Time: Tuesday, May 02, 2017 19:25 - CONCLUSION: 1. Endotracheal tube tip in proximal right mainstem bronchus. Dependent atelectasis in the lungs. No pneumothorax. Erik Javed MD Objective Remarks GENERAL: Unresponsive SKIN: Focused skin assessment cool, dry HEAD: Atraumatic. Normocephalic. EYES: Pupils equal and round. Pupils 3 mm bilateral and reactive. ENT: No nasal bleeding or discharge. Endotracheal tube in place. NECK: Trachea midline. Supple. CARDIOVASCULAR: Regular RR, NL [id number] a heart rate of 82. RESPIRATORY: Bilateral breath sounds, light wheezes. Good air movement. GASTROINTESTINAL: Abdomen soft, non-tender, nondistended. Hepatic and splenic margins not palpable. BS absent. MUSCULOSKELETAL: No obvious deformities. No clubbing. No cyanosis. No edema. NEUROLOGICAL: GCS of 3T. Does not withdraw to pain. Eyes closed, nonverbal with endotracheal tube in place. SAUL. A/P Assessment and Plan Respiratory failure - Intubated for airway protection - No weaning until neurologically improved - Continue mechanical ventilation - DuoNeb scheduled and when necessary - Vent bundle Cardiac arrest - V. fib arrest - Cardiology input appreciated - Workup after rewarmed - 2-D echo - Series of troponins and EKGs - Therapeutic hypothermia protocol Acute kidney injury - Unknown baseline - IV fluid rehydration - Strict I's and O's - Electrolyte replacement per ICU protocol Hypoglycemia - Insulin sliding scale DVT GI prophylaxis - Teds SCDs - Subcutaneous heparin - Pepcid Overall impression: Critically ill following V-fib cardiac arrest and unresponsive on arrival to ED. Neurological status unstable and impaired. Requiring vasopressor support. Complete cooling protocol. Critical Care 44 mins aside from procedures. Manuel Valadez MD May 03, 2017 11:46
[2017-05-03] MEDS ORDERED: TERBUTALINE INJ 1 MG/ML AMP SQ PRN (12:15)
[2017-05-03] MEDS ORDERED: NOREPINEPHRINE INJ 4 MG in SODIUM CHLOR 0.9% 250 ML INJ 246 ML IV PRN (12:15)
[2017-05-03] MEDS: MIDAZOLAM 100 MG/NS 100 ML DRIP Premix IV PRN (12:48)
--- NOTE | 2017-05-03 13:04 | PD.CARD.PN ---
Subjective Subjective Remarks Intubated, sedated, cooled, no signif arrhythmias Objective Medications Current Medications Medications (Trade) Dose Ordered Sig/Dana Route Start Time Stop Time Status Last Admin Sodium Chloride 1,000 ml @ 84 mls/hr [id number] IV 05/02/17 20:00 05/03/17 08:04 (NS Flush) 2 ml UNSCH PRN IV FLUSH 05/02/17 19:30 (NS Flush) 2 ml BID IV FLUSH 05/02/17 21:00 05/03/17 09:57 (Tylenol) 650 mg Q6H PRN PO 05/02/17 19:30 (Morphine Inj) 2 mg Q2H PRN IV PUSH 05/02/17 19:30 (Pepcid Inj) 20 mg Q12HR IV PUSH 05/02/17 21:00 05/03/17 09:57 (Tears Naturale Opth Soln) 1 drop TID EACH EYE 05/03/17 09:00 (Zofran Inj) 4 mg Q6H PRN IV PUSH 05/02/17 19:30 (Duoneb Neb) 1 ampule Q6HR NEB INH 05/02/17 22:00 05/03/17 08:45 (Duoneb Neb) 1 ampule Q2HR NEB PRN INH 05/02/17 19:30 (Heparin Inj) 5,000 units Q8H SQ 05/02/17 20:00 05/03/17 11:56 Miscellaneous Information 1 Q361D XX 05/02/17 19:30 (Chlorhexidine 2% Cloth) 3 pack Taper DAILY@04 TOP 05/03/17 04:00 04/29/18 03:59 (Chlorhexidine 2% Cloth) 3 pack UNSCH PRN TOP 05/02/17 19:30 (Senia-Colace) 1 tab BID PO 05/02/17 21:00 05/03/17 09:57 (Milk Of Magnesia Liq) 30 ml Q12H PRN PO 05/02/17 19:30 (Senokot) 17.2 mg Q12H PRN PO 05/02/17 19:30 (Dulcolax Supp) 10 mg DAILY PRN RECTAL 05/02/17 19:30 (Lactulose Liq) 30 ml DAILY PRN PO 05/02/17 19:30 (Peridex 0.12% Liq) 15 ml BID@08,20 MT 05/02/17 20:00 05/03/17 09:56 Propofol 100 ml @ 2.139 mls/ hr TITRATE PRN IV 05/02/17 22:30 05/03/17 12:17 Midazolam HCl 100 ml @ 2 mls/hr TITRATE PRN IV 05/02/17 22:45 05/03/17 12:48 Fentanyl Citrate 250 ml @ 5 mls/hr TITRATE PRN IV 05/02/17 22:45 Miscellaneous Information D/C ICU ELECTROLYTE ORDERS... UNSCH PRN .XX 05/03/17 00:30 Miscellaneous Information ICU - CALL ORDERING PHYSIC... UNSCH PRN .XX 05/03/17 00:30 Potassium Chloride 100 ml @ 25 mls/hr UNSCH PRN IV 05/03/17 00:30 05/03/17 11:55 (K-Lyte Cl Eff) 50 meq UNSCH PRN PO 05/03/17 00:30 Potassium Chloride 100 ml @ 50 mls/hr UNSCH PRN IV 05/03/17 00:30 Magnesium Sulfate 4 gm/Sodium Chloride 108 ml @ 54 mls/hr UNSCH PRN IV 05/03/17 00:30 Magnesium Sulfate 2 gm/Sodium Chloride 104 ml @ 52 mls/hr UNSCH PRN IV 05/03/17 00:30 (Mag-Ox) 800 mg UNSCH PRN PO 05/03/17 00:30 Sodium Phosphate 30 mmol/Sodium Chloride 260 ml @ 43.333 mls/ hr UNSCH PRN IV 05/03/17 00:30 05/03/17 06:31 (K-Phos) 2,000 mg UNSCH PRN PO 05/03/17 00:30 Potassium Phosphate 30 mmol/ Sodium Chloride 260 ml @ 43.333 mls/ hr UNSCH PRN IV 05/03/17 00:30 Norepinephrine Bitartrate 4 mg/ Sodium Chloride 250 ml @ 7.5 mls/hr TITRATE PRN IV 05/03/17 12:15 (Brethine Inj) 1 mg UNSCH PRN SQ 05/03/17 12:15 Vital Signs / I&O Vital Signs Date Time Temp Pulse Resp B/P (MAP) Pulse Ox O2 Delivery O2 Flow Rate FiO2 05/03/17 11:00 58 18 86/52 (63) 100 85/53 (64) 05/03/17 10:00 57 18 84/50 (61) 100 87/53 (64) 05/03/17 09:00 52 18 85/55 (65) 100 05/03/17 08:47 100 40 05/03/17 08:00 50 18 91/56 (68) 100 05/03/17 07:00 52 18 92/59 (70) 100 05/03/17 06:00 54 19 93/57 (69) 100 05/03/17 06:00 54 05/03/17 05:00 58 18 106/66 (79) 100 05/03/17 05:00 40 05/03/17 04:05 100 40 05/03/17 04:00 55 18 91/54 (66) 100 05/03/17 04:00 55 05/03/17 04:00 40 05/03/17 03:00 50 18 98/62 (74) 100 05/03/17 02:00 52 18 95/62 (73) 100 05/03/17 02:00 52 05/03/17 01:25 100 40 05/03/17 01:00 58 18 98/67 (77) 100 05/03/17 00:00 67 05/03/17 00:00 50 05/03/17 00:00 67 18 98/64 (75) 100 05/02/17 23:00 77 19 112/61 (78) 100 05/02/17 22:00 102 05/02/17 22:00 100 05/02/17 22:00 102 25 135/92 (106) 100 05/02/17 21:30 100 50 05/02/17 21:00 83 22 94/60 (71) 90 05/02/17 20:00 100 05/02/17 20:00 90 20 106/67 (80) 90 05/02/17 20:00 90 05/02/17 19:48 100 100 05/02/17 19:40 93 100 05/02/17 19:30 98 100 05/02/17 19:10 100 100 05/02/17 18:55 98.1 88 18 123/75 (91) 99 I/O 05/02/17 05/02/17 05/02/17 05/03/1705/03/17 12/14/17 07:00 15:00 23:00 07:00 15:00 23:00 Intake Total 629 ml 1159 ml 679 ml Output Total 450 ml 1175 ml 195 ml Balance 179 ml -16 ml 484 ml Intake IV Total 629 ml 1159 ml 629 ml Other 50 ml Output Urine Total 350 ml 925 ml 195 ml Gastric Drainage Total 100 ml 250 ml Physical Exam GENERAL: Intubated, sedated. SKIN: Warm and dry. HEAD: Normocephalic. EYES: No scleral icterus. No injection or drainage. NECK: Supple, trachea midline. No JVD or lymphadenopathy. CARDIOVASCULAR: Regular rate and rhythm without murmurs, gallops, or rubs. RESPIRATORY: Breath sounds equal bilaterally. No accessory muscle use. GASTROINTESTINAL: Abdomen soft, non-tender, nondistended. MUSCULOSKELETAL: No cyanosis, or edema. Laboratory Laboratory Tests Test 05/02/17 19:14 05/02/17 21:15 05/02/17 21:53 05/02/17 22:25 White Blood Count 9.1 TH/MM3 Red Blood Count 3.70 MIL/MM3 Hemoglobin 11.4 GM/DL Hematocrit 33.8 % Mean Corpuscular Volume 91.4 FL Mean Corpuscular Hemoglobin 30.9 PG Mean Corpuscular Hemoglobin Concent 33.8 % Red Cell Distribution Width 13.1 % Platelet Count 265 TH/MM3 Mean Platelet Volume 9.2 FL Neutrophils (%) (Auto) 40.5 % Lymphocytes (%) (Auto) 51.2 % Monocytes (%) (Auto) 6.5 % Eosinophils (%) (Auto) 1.1 % Basophils (%) (Auto) 0.7 % Neutrophils # (Auto) 3.7 TH/MM3 Lymphocytes # (Auto) 4.7 TH/MM3 Monocytes # (Auto) 0.6 TH/MM3 Eosinophils # (Auto) 0.1 TH/MM3 Basophils # (Auto) 0.1 TH/MM3 CBC Comment DIFF FINAL Differential Comment Prothrombin Time 10.6 SEC Prothromb Time International Ratio 1.0 RATIO Activated Partial Thromboplast Time 22.4 SEC Blood Urea Nitrogen 14 MG/DL Creatinine 1.05 MG/DL Random Glucose 203 MG/DL Total Protein 6.7 GM/DL Albumin 3.4 GM/DL Calcium Level 7.9 MG/DL Magnesium Level 2.0 MG/DL Alkaline Phosphatase 65 U/L Aspartate Amino Transf (AST/SGOT) 106 U/L Alanine Aminotransferase (ALT/SGPT) 103 U/L Total Bilirubin 0.4 MG/DL Sodium Level 140 MEQ/L Potassium Level 3.3 MEQ/L Chloride Level 108 MEQ/L Carbon Dioxide Level 17.6 MEQ/L Anion Gap 14 MEQ/L Estimat Glomerular Filtration Rate 45 ML/MIN Total Creatine Kinase 164 U/L Creatine Kinase MB 2.5 NG/ML Troponin I LESS THAN 0.02 NG/ML 0.29 NG/ML Blood Gas Puncture Site RT BRACHIAL Blood Gas Patient Temperature 98.6 Blood Gas HCO3 22 mmol/L Blood Gas Base Excess -2.0 mmol/L Blood Gas Oxygen Saturation 98 % Arterial Blood pH 7.39 Arterial Blood Partial Pressure CO2 38 mmHg Arterial Blood Partial Pressure O2 323 mmHg Arterial Blood Oxygen Content 17.1 Vol % Arterial Blood Carboxyhemoglobin 0.7 % Arterial Blood Methemoglobin 1.1 % Blood Gas Hemoglobin 11.8 G/DL Oxygen Delivery Device VENTILATOR Blood Gas Ventilator Setting 18/500/IT1.0/5PEEP Blood Gas Inspired Oxygen 100 % Nasal Screen MRSA (PCR) MRSA NOT DETECTED Test 05/03/17 01:45 05/03/17 04:10 05/03/17 10:30 Troponin I 0.41 NG/ML White Blood Count 9.8 TH/MM3 Red Blood Count 3.40 MIL/MM3 Hemoglobin 10.6 GM/DL Hematocrit 30.4 % Mean Corpuscular Volume 89.4 FL Mean Corpuscular Hemoglobin 31.1 PG Mean Corpuscular Hemoglobin Concent 34.8 % Red Cell Distribution Width 13.4 % Platelet Count 199 TH/MM3 Mean Platelet Volume 8.4 FL Neutrophils (%) (Auto) 80.9 % Lymphocytes (%) (Auto) 13.3 % Monocytes (%) (Auto) 5.6 % Eosinophils (%) (Auto) 0.0 % Basophils (%) (Auto) 0.2 % Neutrophils # (Auto) 7.9 TH/MM3 Lymphocytes # (Auto) 1.3 TH/MM3 Monocytes # (Auto) 0.5 TH/MM3 Eosinophils # (Auto) 0.0 TH/MM3 Basophils # (Auto) 0.0 TH/MM3 CBC Comment DIFF FINAL Differential Comment Prothrombin Time 11.0 SEC Prothromb Time International Ratio 1.1 RATIO Blood Urea Nitrogen 14 MG/DL 11 MG/DL Creatinine 0.60 MG/DL 0.45 MG/DL Random Glucose 116 MG/DL 122 MG/DL Total Protein 6.1 GM/DL Albumin 3.3 GM/DL Calcium Level 8.2 MG/DL 7.9 MG/DL Phosphorus Level 1.4 MG/DL Magnesium Level 1.9 MG/DL 1.9 MG/DL Alkaline Phosphatase 55 U/L Aspartate Amino Transf (AST/SGOT) 98 U/L Alanine Aminotransferase (ALT/SGPT) 110 U/L Total Bilirubin 0.5 MG/DL Sodium Level 143 MEQ/L 146 MEQ/L Potassium Level 3.5 MEQ/L 3.0 MEQ/L Chloride Level 112 MEQ/L 116 MEQ/L Carbon Dioxide Level 19.3 MEQ/L 19.5 MEQ/L Anion Gap 12 MEQ/L 11 MEQ/L Estimat Glomerular Filtration Rate 86 ML/MIN 137 ML/MIN Lactic Acid Level 3.0 mmol/L Imaging Last 24 hours Impressions Chest X-Ray 05/03/17 0000 Signed Impressions: Service Date/Time: April 03:10 - CONCLUSION: 1. ET tube tip remains at the origin of the right bronchus. 2. Patchy left lower lobe infiltrates with associated volume loss. Sidney Nguyen MD Chest X-Ray 05/02/17 1901 Signed Impressions: Service Date/Time: Tuesday, May 02, 2017 19:25 - CONCLUSION: 1. Endotracheal tube tip in proximal right mainstem bronchus. Dependent atelectasis in the lungs. No pneumothorax. Erik Javed MD Assessment and Plan Problem List: (1) Ventricular fibrillation ICD Codes: I49.01 - Ventricular fibrillation Status: Acute (2) CAD (coronary artery disease) ICD Codes: I25.10 - Atherosclerotic heart disease of [place] coronary artery without angina pectoris (3) Hyperlipidemia ICD Codes: E78.5 - Hyperlipidemia, unspecified (4) HTN (hypertension) ICD Codes: I10 - Essential (primary) hypertension Assessment and Plan Continue ICU care. No significant arrhythmias. Cooling protocol in progress. If neurologic status improves, will proceed with cath, possible EPS/ICD next week. Deanna Moy MD May 03, 2017 13:04
--- NOTE | 2017-05-03 15:55 | EKG ---
Date Performed: 05/03/2017 Time Performed: 01:39:24 PTAGE: 89 years EKG: Sinus bradycardia. IV conduction defect Abnormal ECG NO PREVIOUS TRACING Inferolateral myocardial infarction with persistent ST elevation, so they infarct may be acute. Clinical correlation will be important. DOCTOR: Iwona Melgar Interpretating Date/Time 05/03/2017 15:53:52
[2017-05-03] MEDS ORDERED: DICY10SO2 PO (15:57)
[2017-05-03] MEDS ORDERED: AMLO5 PO (15:57)
[2017-05-03] MEDS ORDERED: SIMV20TA PO (15:57)
[2017-05-03] MEDS ORDERED: OMEP20TA93 PO (15:57)
[2017-05-03 16:58] LABS: BICARBONATE 18.5 MEQ/L (21.0-32.0); MAGNESIUM 1.8 MG/DL (1.5-2.5); POTASSIUM 3.8 MEQ/L (3.5-5.1)
[2017-05-03] MEDS ORDERED: SODIUM CHLOR 0.9% 1000 ML INJ 1,000 ML IV ONE (18:00)
[2017-05-03] MEDS ORDERED: MEPERIDINE HCL 25 MG/ML VIAL IV ONE (21:15)
[2017-05-03 23:00] LABS: BICARBONATE 18.1 MEQ/L (21.0-32.0); MAGNESIUM 1.7 MG/DL (1.5-2.5); POTASSIUM 3.8 MEQ/L (3.5-5.1)
[2017-05-04] VITALS (25 sets, daily range): BP systolic 89–135; BP diastolic 57–98; PULSE 55–101; RESP 18–30; TEMP 94.8–97.8; O2SAT 99–100
[2017-05-04] MEDS: MIDAZOLAM 100 MG/NS 100 ML DRIP Premix IV PRN (01:51)
[2017-05-04] MEDS: RESP: ALBUTEROL 2.5 MG/IPRATROPIUM 0.5 MG NEB (SCH) INH ×4 (03:58→21:21)
[2017-05-04] MEDS: CHLORHEXIDINE GLUCONATE 2 % 1 PACK (2 CLOTHS) TOP SCH (04:00)
[2017-05-04] MEDS: HEPARIN SODIUM - SQ 10,000 UNITS/ML VIAL SQ SCH ×3 (04:17→20:51)
[2017-05-04 04:44] LABS: BICARBONATE 16.8 MEQ/L (21.0-32.0); MAGNESIUM 1.8 MG/DL (1.5-2.5); POTASSIUM 3.7 MEQ/L (3.5-5.1)
[2017-05-04] MEDS: PROPOFOL 1000 MG/100 ML IV PRN (06:44)
[2017-05-04] MEDS: CHLORHEXIDINE 0.12% (ORAL KIT) 15 ML CUP MT SCH ×2 (08:00→20:00)
[2017-05-04] MEDS: ARTIFICIAL TEARS OPTH SOLN 15 ML BTL EACH EYE SCH ×3 (08:08→17:24)
[2017-05-04] MEDS: SODIUM CHLORIDE 0.9% FLUSH 10 ML FLUSH IV FLUSH SCH ×2 (08:08→20:51)
[2017-05-04] MEDS: DOCUSATE SODIUM 50 MG/SENNA 8.6 MG TAB PO SCH ×2 (08:09→20:52)
[2017-05-04] MEDS: FAMOTIDINE 20 MG/2 ML VIAL IV PUSH SCH ×2 (08:31→20:52)
[2017-05-04] MEDS ORDERED: MEPERIDINE HCL 25 MG/ML VIAL IV PUSH ONE (10:00)
[2017-05-04] MEDS: MAGNESIUM SULFATE 1 GM PREMIX 100 ML IV SCH ×2 (10:11→11:40)
[2017-05-04 10:14] LABS: MAGNESIUM 1.9 MG/DL (1.5-2.5); POTASSIUM 3.9 MEQ/L (3.5-5.1)
[2017-05-04] MEDS: SODIUM CHLOR 0.45% 1000 ML INJ 1,000 ML IV SCH (10:15)
[2017-05-04] MEDS: LABETALOL HCL 100 MG/20 ML VIAL IV PUSH PRN ×2 (10:26→14:10)
[2017-05-04] MEDS ORDERED: METOPROLOL TARTRATE 5 MG/5 ML VIAL IV PUSH ONE (10:30)
--- NOTE | 2017-05-04 10:31 | HHI.CCPN ---
Subjective Remarks/Hospital Course 60-70 something year-old female who presents after a syncopal episode. EMS states the patient was sitting on a bench when she apparently had a syncopal episode. When EMS arrived she was GCS was 3, she has spontaneous circulation with a positive radial pulse, and had spontaneous breathing. When they place the patient into the ambulance truck she became agonal with respirations and then went into ventricular fibrillation. They defibrillated the patient twice, she received 1 mg of epinephrine intravenously, and CPR was performed for 5 minutes. EMS states they got return of spontaneous circulation with initial heart rate in the 130s to 140s. They felt there was possible ST elevation in 2 , 3, and aVF, therefore, called a STEMI in the field. Upon arrival the patient is intubated, she required no medications for intubation, with an IO in the left lower extremity. During my evaluation and assessment patient was nonverbal , intubated, not withdrawing to pain. She was immediately evaluated by Dr. Greene log handler on-call who is planning to proceed further cardiac workup if there is meaningful neurological improvement. Due to poor neurological exam the therapeutic hypothermia protocol was initiated. Shortly after the transfer to ICU patient starts withdrawing to pain neurologically improving. 05/03/17: Unstable hemodynamics requiring vasopressor support. Gas exchange acceptable. ET tube withdrawn 2 cm after CXR today. 05/04: Just completed rewarming. Remains sedated, [facility] Objective Vital Signs Date Time Temp Pulse Resp B/P (MAP) Pulse Ox O2 Delivery O2 Flow Rate FiO2 05/04/17 09:00 96.4 84 18 128/61 (83) 100 119/71 (87) 05/04/17 08:48 40 Intake and Output 05/04/17 05/04/17 05/05/17 08:00 16:00 00:00 Intake Total 692.5 ml Output Total 351 ml 33 ml Balance 341.5 ml -33 ml Result Diagram: 05/03/17 0410 05/04/17 0915 Other Results Laboratory Tests Test 05/03/17 10:30 05/03/17 16:00 05/03/17 22:05 05/04/17 04:00 Blood Urea Nitrogen 11 MG/DL 11 MG/DL 9 MG/DL 8 MG/DL Creatinine 0.45 MG/DL 0.40 MG/DL 0.40 MG/DL 0.39 MG/DL Random Glucose 122 MG/DL 103 MG/DL 124 MG/DL 107 MG/DL Calcium Level 7.9 MG/DL 7.7 MG/DL 7.2 MG/DL 7.5 MG/DL Magnesium Level 1.9 MG/DL 1.8 MG/DL 1.7 MG/DL 1.8 MG/DL Sodium Level 146 MEQ/L 146 MEQ/L 149 MEQ/L 149 MEQ/L Potassium Level 3.0 MEQ/L 3.8 MEQ/L 3.8 MEQ/L 3.7 MEQ/L Chloride Level 116 MEQ/L 118 MEQ/L 122 MEQ/L 122 MEQ/L Carbon Dioxide Level 19.5 MEQ/L 18.5 MEQ/L 18.1 MEQ/L 16.8 MEQ/L Anion Gap 11 MEQ/L 10 MEQ/L 9 MEQ/L 10 MEQ/L Estimat Glomerular Filtration Rate 137 ML/MIN 157 ML/MIN 157 ML/MIN 162 ML/MIN Phosphorus Level 2.6 MG/DL Total Protein 5.6 GM/DL Protein Corrected Calcium 8.0 MG/DL Test 05/04/17 09:15 Blood Urea Nitrogen 7 MG/DL Creatinine 0.41 MG/DL Random Glucose 112 MG/DL Calcium Level 7.9 MG/DL Magnesium Level 1.9 MG/DL Sodium Level 149 MEQ/L Potassium Level 3.9 MEQ/L Chloride Level 122 MEQ/L Carbon Dioxide Level 19.0 MEQ/L Anion Gap 8 MEQ/L Estimat Glomerular Filtration Rate 152 ML/MIN Imaging Last 24 hours Impressions Chest X-Ray 05/02/17 1901 Signed Impressions: Service Date/Time: Tuesday, May 02, 2017 19:25 - CONCLUSION: 1. Endotracheal tube tip in proximal right mainstem bronchus. Dependent atelectasis in the lungs. No pneumothorax. Erik Javed MD Objective Remarks GENERAL: sedated, orally intubated on mech vent. SKIN: Focused skin assessment cool, dry HEAD: Atraumatic. Normocephalic. EYES: Pupils equal and round. Pupils 3 mm bilateral and reactive. ENT: No nasal bleeding or discharge. Endotracheal tube in place. NECK: Trachea midline. Supple. CARDIOVASCULAR: Regular RR, NL [id number] a heart rate of 82. RESPIRATORY: orally intubated on mech vent, Bilateral breath sounds, CTAB GASTROINTESTINAL: Abdomen soft, non-tender, nondistended. Hepatic and splenic margins not palpable. BS sluggish MUSCULOSKELETAL: No obvious deformities. No clubbing. No cyanosis. No edema. NEUROLOGICAL: GCS of 3T. Questionable grimacing to pain. Eyes closed, nonverbal with endotracheal tube in place. SAUL-3mm bilaterally A/P Assessment and Plan Neuro: Suspected anoxic brain injury - Hold sedation for assessing neuro status - EEG ordered. - Stop Versed. Use propofol for sedation as needed while intubated. - Watch for seizures. Acute Respiratory failure on [facility] ventilation - Intubated for airway protection - No weaning until neurologically improved - Continue mechanical ventilation - DuoNeb scheduled and when necessary - Vent bundle Cardiac arrest - V. fib arrest - Cardiology input appreciated - Workup after rewarmed - 2-D echo - Series of troponins and EKGs - Therapeutic hypothermia protocol Acute kidney injury - Unknown baseline - IV fluid rehydration - Strict I's and O's - Electrolyte replacement per ICU protocol GI/liver: - start tube feeds with Jevity and advance to goal as tolerated. Endocrine - Insulin sliding scale as needed DVT GI prophylaxis - Teds SCDs - Subcutaneous heparin - Pepcid Overall impression: Critically ill following V-fib cardiac arrest and unresponsive on arrival to ED. Neurological status unstable and impaired. Requiring vasopressor support. Complete cooling protocol. I discussed with patient's family regarding current clinical status and plan of care abd they voiced understanding. Explained concern re anoxic brain injury. Critical Care 40 mins aside from procedures. Zackery Alatorre MD May 04, 2017 10:30
--- NOTE | 2017-05-04 12:03 | PD.CARD.PN ---
Subjective Subjective Remarks Intubated, sedated, no arrhythmias Objective Medications Current Medications Medications (Trade) Dose Ordered Sig/Dana Route Start Time Stop Time Status Last Admin (NS Flush) 2 ml UNSCH PRN IV FLUSH 05/02/17 19:30 (NS Flush) 2 ml BID IV FLUSH 05/02/17 21:00 05/04/17 08:08 (Tylenol) 650 mg Q6H PRN PO 05/02/17 19:30 (Morphine Inj) 2 mg Q2H PRN IV PUSH 05/02/17 19:30 (Pepcid Inj) 20 mg Q12HR IV PUSH 05/02/17 21:00 05/04/17 08:31 (Tears Naturale Opth Soln) 1 drop TID EACH EYE 05/03/17 09:00 05/04/17 08:08 (Zofran Inj) 4 mg Q6H PRN IV PUSH 05/02/17 19:30 (Duoneb Neb) 1 ampule Q6HR NEB INH 05/02/17 22:00 05/04/17 08:48 (Duoneb Neb) 1 ampule Q2HR NEB PRN INH 05/02/17 19:30 (Heparin Inj) 5,000 units Q8H SQ 05/02/17 20:00 05/04/17 11:39 Miscellaneous Information 1 Q361D XX 05/02/17 19:30 (Chlorhexidine 2% Cloth) 3 pack Taper DAILY@04 TOP 05/03/17 04:00 04/29/18 03:59 (Chlorhexidine 2% Cloth) 3 pack UNSCH PRN TOP 05/02/17 19:30 (Senia-Colace) 1 tab BID PO 05/02/17 21:00 05/03/17 09:57 (Milk Of Magnesia Liq) 30 ml Q12H PRN PO 05/02/17 19:30 (Senokot) 17.2 mg Q12H PRN PO 05/02/17 19:30 (Dulcolax Supp) 10 mg DAILY PRN RECTAL 05/02/17 19:30 (Lactulose Liq) 30 ml DAILY PRN PO 05/02/17 19:30 (Peridex 0.12% Liq) 15 ml BID@08,20 MT 05/02/17 20:00 05/04/17 08:00 Propofol 100 ml @ 2.139 mls/ hr TITRATE PRN IV 05/02/17 22:30 05/04/17 06:44 Midazolam HCl 100 ml @ 2 mls/hr TITRATE PRN IV 05/02/17 22:45 05/04/17 01:51 Fentanyl Citrate 250 ml @ 5 mls/hr TITRATE PRN IV 05/02/17 22:45 Miscellaneous Information D/C ICU ELECTROLYTE ORDERS... UNSCH PRN .XX 05/03/17 00:30 Miscellaneous Information ICU - CALL ORDERING PHYSIC... UNSCH PRN .XX 05/03/17 00:30 Potassium Chloride 100 ml @ 25 mls/hr UNSCH PRN IV 05/03/17 00:30 05/03/17 16:05 (K-Lyte Cl Eff) 50 meq UNSCH PRN PO 05/03/17 00:30 Potassium Chloride 100 ml @ 50 mls/hr UNSCH PRN IV 05/03/17 00:30 Magnesium Sulfate 4 gm/Sodium Chloride 108 ml @ 54 mls/hr UNSCH PRN IV 05/03/17 00:30 Magnesium Sulfate 2 gm/Sodium Chloride 104 ml @ 52 mls/hr UNSCH PRN IV 05/03/17 00:30 (Mag-Ox) 800 mg UNSCH PRN PO 05/03/17 00:30 Sodium Phosphate 30 mmol/Sodium Chloride 260 ml @ 43.333 mls/ hr UNSCH PRN IV 05/03/17 00:30 05/03/17 06:31 (K-Phos) 2,000 mg UNSCH PRN PO 05/03/17 00:30 Potassium Phosphate 30 mmol/ Sodium Chloride 260 ml @ 43.333 mls/ hr UNSCH PRN IV 05/03/17 00:30 Norepinephrine Bitartrate 4 mg/ Sodium Chloride 250 ml @ 7.5 mls/hr TITRATE PRN IV 05/03/17 12:15 05/03/17 23:37 (Brethine Inj) 1 mg UNSCH PRN SQ 05/03/17 12:15 Sodium Chloride 1,000 ml @ 42 mls/hr [id number] IV 05/04/17 10:15 05/04/17 10:15 (Trandate Inj) 20 mg Q4H PRN IV PUSH 05/04/17 10:30 05/04/17 10:26 Vital Signs / I&O Vital Signs Date Time Temp Pulse Resp B/P (MAP) Pulse Ox O2 Delivery O2 Flow Rate FiO2 05/04/17 11:00 97.1 77 18 122/75 (91) 100 05/04/17 10:00 96.8 100 18 106/67 (80) 100 05/04/17 10:00 76 05/04/17 09:00 96.4 84 18 128/61 (83) 100 119/71 (87) 05/04/17 08:48 100 40 05/04/17 08:00 95.5 77 18 104/60 (75) 100 110/68 (82) 05/04/17 08:00 75 05/04/17 08:00 40 05/04/17 07:00 94.8 77 18 113/61 (78) 100 115/69 (84) 05/04/17 06:00 65 05/04/17 06:00 65 18 112/70 (84) 100 124/75 (91) 05/04/17 05:00 64 18 99/58 (72) 100 108/62 (77) 05/04/17 04:15 60 83/54 05/04/17 04:05 100 40 05/04/17 04:00 60 18 89/57 (68) 100 94/58 (70) 05/04/17 04:00 60 05/04/17 04:00 40 05/04/17 03:00 70 19 102/64 (77) 100 112/68 (83) 05/04/17 02:00 56 18 110/68 (82) 100 117/71 (86) 05/04/17 02:00 56 05/04/17 01:00 57 18 110/70 (83) 100 121/73 (89) 05/04/17 00:00 40 05/04/17 00:00 55 18 116/72 (87) 100 115/77 (90) 05/04/17 00:00 55 05/03/17 23:37 60 75/52 05/03/17 23:00 61 18 96/58 (71) 100 106/61 (76) 05/03/17 22:59 100 40 05/03/17 22:00 74 18 89/58 (68) 100 92/62 (72) 05/03/17 22:00 74 05/03/17 21:00 72 18 94/57 (69) 100 98/64 (75) 05/03/17 20:05 100 40 05/03/17 20:00 58 05/03/17 20:00 40 05/03/17 20:00 58 18 96/68 (77) 100 105/67 (80) 05/03/17 19:00 56 18 85/56 (66) 100 102/65 (77) 05/03/17 18:00 56 05/03/17 18:00 56 18 86/54 (65) 100 91/59 (70) 05/03/17 17:00 56 18 94/60 (71) 100 95/60 (72) 05/03/17 16:00 51 18 88/57 (67) 100 84/59 (67) 05/03/17 16:00 40 05/03/17 16:00 51 05/03/17 15:53 100 40 05/03/17 15:00 51 18 92/60 (71) 100 92/62 (72) 05/03/17 14:00 56 05/03/17 14:00 56 18 93/65 (74) 100 98/64 (75) 05/03/17 13:00 60 18 87/58 (68) 100 94/58 (70) 05/03/17 12:05 100 40 I/O 05/03/17 05/03/17 05/03/17 05/04/17 05/04/17 05/04/17 07:00 15:00 23:00 07:00 15:00 23:00 Intake Total 1159 ml 1181 ml 1921.9 ml 807.5 ml Output Total 1175 ml 302 ml 382 ml 335 ml 166 ml Balance -16 ml 879 ml 1539.9 ml 472.5 ml -166 ml Intake IV Total 1159 ml 1131 ml 1921.9 ml 807.5 ml Other 50 ml Output Urine Total 925 ml 302 ml 232 ml 210 ml 166 ml Gastric Drainage Total 250 ml 150 ml 125 ml Physical Exam GENERAL: Intubated, sedated. SKIN: Warm and dry. HEAD: Normocephalic. EYES: No scleral icterus. No injection or drainage. NECK: Supple, trachea midline. No JVD or lymphadenopathy. CARDIOVASCULAR: Regular rate and rhythm without murmurs, gallops, or rubs. RESPIRATORY: Breath sounds equal bilaterally. No accessory muscle use. GASTROINTESTINAL: Abdomen soft, non-tender, nondistended. MUSCULOSKELETAL: No cyanosis, or edema. Laboratory Laboratory Tests Test 05/03/17 16:00 05/03/17 22:05 05/04/17 04:00 05/04/17 09:15 Blood Urea Nitrogen 11 MG/DL 9 MG/DL 8 MG/DL 7 MG/DL Creatinine 0.40 MG/DL 0.40 MG/DL 0.39 MG/DL 0.41 MG/DL Random Glucose 103 MG/DL 124 MG/DL 107 MG/DL 112 MG/DL Calcium Level 7.7 MG/DL 7.2 MG/DL 7.5 MG/DL 7.9 MG/DL Phosphorus Level 2.6 MG/DL Magnesium Level 1.8 MG/DL 1.7 MG/DL 1.8 MG/DL 1.9 MG/DL Sodium Level 146 MEQ/L 149 MEQ/L 149 MEQ/L 149 MEQ/L Potassium Level 3.8 MEQ/L 3.8 MEQ/L 3.7 MEQ/L 3.9 MEQ/L Chloride Level 118 MEQ/L 122 MEQ/L 122 MEQ/L 122 MEQ/L Carbon Dioxide Level 18.5 MEQ/L 18.1 MEQ/L 16.8 MEQ/L 19.0 MEQ/L Anion Gap 10 MEQ/L 9 MEQ/L 10 MEQ/L 8 MEQ/L Estimat Glomerular Filtration Rate 157 ML/MIN 157 ML/MIN 162 ML/MIN 152 ML/MIN Total Protein 5.6 GM/DL Protein Corrected Calcium 8.0 MG/DL Assessment and Plan Problem List: (1) Ventricular fibrillation ICD Codes: I49.01 - Ventricular fibrillation Status: Acute (2) CAD (coronary artery disease) ICD Codes: I25.10 - Atherosclerotic heart disease of [place] coronary artery without angina pectoris (3) Hyperlipidemia ICD Codes: E78.5 - Hyperlipidemia, unspecified (4) HTN (hypertension) ICD Codes: I10 - Essential (primary) hypertension Assessment and Plan Stable from cardiac standpoint. Continue ICU care. No significant arrhythmias. Wean vent as tolerated. If neurologic status improves, will proceed with cath, possible EPS/ICD next week. D/w pt's family. Deanna Moy MD May 04, 2017 12:03
--- NOTE | 2017-05-04 13:10 | MG ---
cc: EDUAR MONTANEZ M.D. Lab No: [id number]___ Date: 05/04/2017 Age: 71 Sex: F Race: ___ REQUESTING PHYSICIAN Dr. Alatorre INDICATIONS An EEG was obtained on this 71-year-old patient being evaluated for decreased responsiveness, code cool initiated, history of sleep apnea, anxiety and alcohol. DESCRIPTION The patient is described as being off of Versed and Diprivan for the procedure. This EEG is showing fairly prominent theta rhythms. There is some intermixed delta activity and there are some beta rhythms of low amplitude. Overall, the rhythms appear to be fairly symmetrical. There is some brief attenuation in a generalized manner. The patient seems to partially awaken and there is a lot of artifact with some reduction of the slower rhythms in the background. Photic stimulation disclosed no significant change. INTERPRETATION Abnormal EEG because of continuous bi-hemisphere slowing suggesting at least a moderately severe diffuse disturbance of cerebral function, but no epileptiform features present. No ictal pattern. MD ROSSY Reynoso/YARELIS /12:05 PM /12:49 PM
--- NOTE | 2017-05-04 14:37 | ECHRPT ---
Indication: S/P CARDIAC ARREST, CORONARY ATHEROSCLEROSIS CONCLUSIONS Normal left ventricular size and wall thickness. The left ventricular systolic function is normal wi th an estimated ejection fraction in the range of 60-65%. No definite wall motion abnormalities. Mild mitral valve regurgitation. The aortic valve is not well visualized. BP: 85 / 53 HR: 58 Rhythm: Sinus MEASUREMENTS (Male / Female) Normal Values Technical Quality:Fair 2D ECHO LV Diastolic Diameter PLAX 5.4 cm 4.2 - 5.9 / 3.9 - 5.3 cm LV Systolic Diameter PLAX 4.8 cm IVS Diastolic Thickness 1.0 cm 0.6 - 1.0 / 0.6 - 0.9 cm LVPW Diastolic Thickness 1.0 cm 0.6 - 1.0 / 0.6 - 0.9 cm LV Relative Wall Thickness 0.4 RV Internal Dim ED PLAX 2.1 cm LVOT Diameter 1.8 cm Aortic Root Diameter 2.9 cm LA Systolic Diameter LX 2.9 cm 3.0 - 4.0 / 2.7 - 3.8 cm M-MODE AV Cusp Separation MM 2.1 cm DOPPLER AV Peak Velocity 138.0 cm/s AV Peak Gradient 7.6 mmHg AV Mean Gradient 5.0 mmHg AV Velocity Time Integral 23.9 cm LVOT Peak Velocity 87.2 cm/s LVOT Peak Gradient 3.0 mmHg LVOT Velocity Time Integral 15.6 cm AV Area Cont Eq vti 1.7 cm AV Area Cont Eq pk 1.6 cm Mitral E Point Velocity 109.0 cm/s Mitral A Point Velocity 119.0 cm/s Mitral E to A Ratio 0.9 LV E' Lateral Velocity 10.0 cm/s Mitral E to LV E' Lateral Ratio 10.9 LV E' Septal Velocity 4.7 cm/s Mitral E to LV E' Septal Ratio 23.3 TR Peak Velocity 300.0 cm/s TR Peak Gradient 36.0 mmHg Right Atrial Pressure 10.0 mmHg Pulmonary Artery Systolic Pressu 46.0 mmHg Right Ventricular Systolic Press 46.0 mmHg PV Peak Velocity 58.7 cm/s PV Peak Gradient 1.4 mmHg FINDINGS LEFT VENTRICLE Normal left ventricular size and wall thickness. The left ventricular systolic function is normal wi th an estimated ejection fraction in the range of 60-65%. No definite wall motion abnormalities. RIGHT VENTRICLE Normal right ventricular size and systolic function. LEFT ATRIUM The left atrial size is normal. RIGHT ATRIUM The right atrial size is normal. ATRIAL SEPTUM Normal atrial septal thickness without atrial level shunting by limited color doppler interrogation. AORTA The aortic root and proximal ascending aorta are normal in size on limited imaging. MITRAL VALVE Mild mitral valve regurgitation. AORTIC VALVE The aortic valve is not well visualized. TRICUSPID VALVE Structurally normal tricuspid valve. No tricuspid valve stenosis or regurgitation. PULMONARY VALVE Mild pulmonary valve regurgitation. VESSELS The inferior vena cava is normal in size. PERICARDIUM No pericardial effusion. Sundar Ordoñez MD (Electronically Signed) Final Date:04 May 2017 14:36
[2017-05-04 16:49] LABS: BICARBONATE 19.8 MEQ/L (21.0-32.0); MAGNESIUM 2.3 MG/DL (1.5-2.5); POTASSIUM 4.2 MEQ/L (3.5-5.1)
[2017-05-04] MEDS: MORPHINE SULFATE 2 MG/ML INJ IV PUSH PRN (20:51)
[2017-05-04 21:40] LABS: BLOOD GAS BASE EXCESS -4.3 mmol/L (-2-2); BLOOD GAS HCO3 20 mmol/L (22-26); BLOOD GAS METHEMOGLOBIN 0.9 % (0-2); BLOOD GAS O2 HGB SATURATION 92 % (90-100); BLOOD GAS OXYGEN CONTENT 14.2 Vol % (12.0-20.0); BLOOD GAS PCO2 32 mmHg (38-42); BLOOD GAS PO2 68 mmHg (61-120); BLOOD GAS TOTAL HGB 10.9 G/DL (12.0-16.0); CRITICAL VALUE NO; OXYGEN DEVICE VENTILATOR; TEMP CORR TO 98.6
[2017-05-04 21:41] LABS: DRAW SITE LT RADIAL; FIO2 40 %; NUMBER OF ARTERIAL PUNCTURES 1; STAT NO; ULNAR PULSE PRESENT; VENT SETTINGS PRVC18/500/1.0/+5
[2017-05-04 22:53] LABS: BICARBONATE 21.1 MEQ/L (21.0-32.0); MAGNESIUM 2.2 MG/DL (1.5-2.5); POTASSIUM 3.5 MEQ/L (3.5-5.1)
[2017-05-04] MEDS: ICU - POTASSIUM CHLORIDE/AQUEOUS SOLN 40 MEQ/100 ML IVPB IV PRN (23:28)
[2017-05-05] VITALS (19 sets, daily range): BP systolic 104–151; BP diastolic 51–92; PULSE 83–105; RESP 18–26; TEMP 97.4–101.2; O2SAT 97–100
[2017-05-05] MEDS: HEPARIN SODIUM - SQ 10,000 UNITS/ML VIAL SQ SCH ×2 (03:35→11:39)
[2017-05-05] MEDS: CHLORHEXIDINE GLUCONATE 2 % 1 PACK (2 CLOTHS) TOP SCH (04:00)
[2017-05-05] MEDS: RESP: ALBUTEROL 2.5 MG/IPRATROPIUM 0.5 MG NEB (SCH) INH ×4 (04:11→20:17)
[2017-05-05] MEDS: CHLORHEXIDINE 0.12% (ORAL KIT) 15 ML CUP MT SCH ×2 (08:00→20:00)
[2017-05-05 08:35] LABS: HEMATOCRIT 32.2 % (35.0-46.0); MEAN CELL VOLUME 89.8 FL (80.0-100.0); MEAN CORPUSCULAR HEMOGLOBIN 30.1 PG (27.0-34.0); MEAN CORPUSCULAR HGB CONC 33.5 % (32.0-36.0); PLATELET COUNT 213 TH/MM3 (150-450); RED BLOOD COUNT 3.58 MIL/MM3 (4.00-5.30); RED CELL DISTRIBUTION WIDTH 13.7 % (11.6-17.2); REVIEW FLAG FINAL; WHITE BLOOD COUNT 13.4 TH/MM3 (4.0-11.0)
[2017-05-05 08:58] LABS: BICARBONATE 23.8 MEQ/L (21.0-32.0); POTASSIUM 3.8 MEQ/L (3.5-5.1)
[2017-05-05] MEDS: SODIUM CHLORIDE 0.9% FLUSH 10 ML FLUSH IV FLUSH SCH ×2 (09:00→20:39)
[2017-05-05] MEDS: ARTIFICIAL TEARS OPTH SOLN 15 ML BTL EACH EYE SCH ×3 (09:00→18:00)
[2017-05-05] MEDS: MORPHINE SULFATE 2 MG/ML INJ IV PUSH PRN ×2 (09:12→11:40)
[2017-05-05] MEDS: FAMOTIDINE 20 MG/2 ML VIAL IV PUSH SCH ×2 (09:12→20:40)
[2017-05-05] MEDS: LABETALOL HCL 100 MG/20 ML VIAL IV PUSH PRN ×2 (09:13→11:41)
[2017-05-05] MEDS: DOCUSATE SODIUM 50 MG/SENNA 8.6 MG TAB PO SCH ×2 (09:13→20:24)
[2017-05-05] MEDS: SODIUM CHLOR 0.45% 1000 ML INJ 1,000 ML IV SCH (10:04)
--- NOTE | 2017-05-05 11:50 | HHI.CCPN ---
Subjective Remarks/Hospital Course 59-70 something year-old female who presents after a syncopal episode. EMS states the patient was sitting on a bench when she apparently had a syncopal episode. When EMS arrived she was GCS was 3, she has spontaneous circulation with a positive radial pulse, and had spontaneous breathing. When they place the patient into the ambulance truck she became agonal with respirations and then went into ventricular fibrillation. They defibrillated the patient twice, she received 1 mg of epinephrine intravenously, and CPR was performed for 5 minutes. EMS states they got return of spontaneous circulation with initial heart rate in the 130s to 140s. They felt there was possible ST elevation in 2 , 3, and aVF, therefore, called a STEMI in the field. Upon arrival the patient is intubated, she required no medications for intubation, with an IO in the left lower extremity. During my evaluation and assessment patient was nonverbal , intubated, not withdrawing to pain. She was immediately evaluated by Dr. Greene passenger car cleaning supervisor on-call who is planning to proceed further cardiac workup if there is meaningful neurological improvement. Due to poor neurological exam the therapeutic hypothermia protocol was initiated. Shortly after the transfer to ICU patient starts withdrawing to pain neurologically improving. 05/03/17: Unstable hemodynamics requiring vasopressor support. Gas exchange acceptable. ET tube withdrawn 2 cm after CXR today. 05/04: Just completed rewarming. Remains sedated, orally intubated on mech ventilation. Subjective: 05/05 Temp 38.3 when induced cooling discontinued. Tolerating CPAP 10/5 with RSBI high 50s. , decreased to 5/5. Thick calzada secretions with suctioning. Echo with EF 60-65%. No definite wall motion abnormalities. Objective Vital Signs Date Time Temp Pulse Resp B/P (MAP) Pulse Ox O2 Delivery O2 Flow Rate FiO2 05/05/17 11:05 98 40 05/05/17 10:00 98 05/05/17 08:00 97.7 25 141/84 (103) Intake and Output 05/05/17 05/05/17 05/06/17 08:00 16:00 00:00 Intake Total 831.0 ml 172 ml Output Total 832.0 ml Balance -1.0 ml 172 ml Result Diagram: 05/05/1781905/05/17819 Other Results Laboratory Tests Test 05/04/17 21:31 Blood Gas Puncture Site LT RADIAL Blood Gas Patient Temperature 98.6 Blood Gas HCO3 20 mmol/L (22-26) Blood Gas Base Excess -4.3 mmol/L (-2-2) Blood Gas Oxygen Saturation 92 % (90-100) Arterial Blood pH 7.41 (7.380-7.420) Arterial Blood Partial Pressure CO2 32 mmHg (38-42) Arterial Blood Partial Pressure O2 68 mmHg (61-120) Arterial Blood Oxygen Content 14.2 Vol % (12.0-20.0) Arterial Blood Carboxyhemoglobin 1.0 % (0-4) Arterial Blood Methemoglobin 0.9 % (0-2) Blood Gas Hemoglobin 10.9 G/DL (12.0-16.0) Oxygen Delivery Device VENTILATOR Blood Gas Ventilator Setting PRVC18/500/1.0/+5 Blood Gas Inspired Oxygen 40 % Imaging Last 24 hours Impressions Chest X-Ray 05/02/17 1901 Signed Impressions: Service Date/Time: Tuesday, May 02, 2017 19:25 - CONCLUSION: 1. Endotracheal tube tip in proximal right mainstem bronchus. Dependent atelectasis in the lungs. No pneumothorax. Erik Javed MD Objective Remarks GENERAL: Intubated on mechanical ventilation. SKIN: dry, no rash. HEAD: Atraumatic. Normocephalic. EYES: Pupils equal and round. Pupils 3 mm bilateral and reactive. ENT: No nasal bleeding or discharge. Endotracheal tube in place. NECK: Trachea midline. Supple. CARDIOVASCULAR: Regular RR, NL [id number] a heart rate of 82. RESPIRATORY: orally intubated on mech vent, Bilateral breath sounds, CTAB. calzada secretions with suctioning. GASTROINTESTINAL: Abdomen soft, non-tender, nondistende. BS sluggish. Tolerating tube feeds. MUSCULOSKELETAL: No obvious deformities. No clubbing. No cyanosis. No edema. NEUROLOGICAL: Eyes open, follows commands by moving bilaterally feet. Did not squeeze hands. + facial grimace during suctioning. . A/P Assessment and Plan Neuro: ?Anoxic encephalopathy - seems to be improving. - Hold sedation for assessing neuro status. Received morphine prior to my exam due to agitation. Propofol if needed for sedation. -CT brain 05/02 negative. - EEG - by hemisphere slowing. No epileptiform features. -D/c versed, fentanyl, propofol. - Watch for seizures. Acute Respiratory failure [facility] - Intubated for airway protection - CPAP trials daily. - DuoNeb scheduled and when necessary - Vent bundle -Check CXR now. Cardiac arrest - V. fib arrest HTN - 2-D echo 05/04 - Echo with EF 60-65%. No definite wall motion abnormalities. -metoprolol 12.5 mg po bid for HTN. Confer with Farzaneh prior to EP study for holding betablocker. Dr. Moy following for cath and EP study next week if neuro status improves. - Troponin elevation mild 0.41. - EKG c/w old inferior lateral AK. - Therapeutic hypothermia protocol Acute kidney injury (resolved) - Creatinine normalized with IV fluid hydration. KVO IVF and may diurese some to facilitate weaning. - Strict I's and O's - Electrolyte replacement per ICU protocol GI/liver: -Continue Jevity 1.5 at 60 mL per hour per nutrition recommendations. ID Acute aspiration pneumonia Fever Leukocytosis Send blood cultures, U/a and urine culture, CXR, repeat sputum culture. Followed up CXR which showed RLL infiltrate, will initiatie Zosyn 4.5 IV q6 hours and Levaquin 750 mg IV q24 hours. Endocrine Acute stress hyperglycemia (resolved) -Euglycemic, not requiring insulin coverage DVT GI prophylaxis - Teds SCDs -Changed to Lovenox 40 mg subcutaneous daily - Pepcid 20 mg IV q12 hours. ACCESS: Left femoral heat exchange catheter placed 05/03 #3. We'll remove today. Radial art line 05/03 has been removed. I discussed with patient's family regarding current clinical status and plan of care including vent weaning and awaiting improvement of mental status. Level III follow up Peggy Brush MD May 05, 2017 11:50
[2017-05-05] MEDS ORDERED: ACETAMINOPHEN 1000 MG/100 ML 100 ML IV ONE (12:00)
--- NOTE | 2017-05-05 12:16 | EKG ---
Date Performed: 05/03/2017 Time Performed: 15:54:32 PTAGE: 71 years EKG: Sinus bradycardia. IV conduction defect Inferior infarct - age undetermined Abnormal ECG PREVIOUS TRACING : 05/03/2017 08.35 DOCTOR: Janee Machuca Interpretating Date/Time 05/05/2017 12:15:25
--- NOTE | 2017-05-05 12:26 | EKG ---
Date Performed: 05/03/2017 Time Performed: 08:35:16 PTAGE: 71 years EKG: Sinus bradycardia. IV conduction defect Inferior infarct - age undetermined Possible latera l infarct - age undetermined Abnormal ECG PREVIOUS TRACING : 05/03/2017 01.39 DOCTOR: Janee Machuca Interpretating Date/Time 05/05/2017 12:26:27
[2017-05-05 12:37] LABS: BLOOD, URINE SMALL (NEG); COMMENT (UR) CATH-CULT NOT IND; CULTURE IF INDICATED CATH CULTURE NOT IND; GLUCOSE,URINE NEG (NEG); KETONE, URINE 40 mg/dL (NEG); MUCUS URINE FEW /lpf (OCC); NITRITE,URINE NEG (NEG); PH, URINE 5.5 (5.0-8.5); SQUAMOUS EPITHELIAL CELL URINE <1 /hpf (0-5); URINE COLOR LIGHT-YELLOW (YELLW/STRAW)
[2017-05-05] MEDS ORDERED: AMPICILLIN-SULBACTAM INJ 3 GM in SODIUM CHLORIDE 0.9% INJ 100 ML IV SCH (13:45)
--- NOTE | 2017-05-05 14:00 | RADRPT ---
EXAM DATE/TIME: 05/05/2017 13:37 [facility] COMPARISON: CHEST SINGLE AP, May 03, 2017, 3:10. INDICATIONS : Respiratory distress MEDICAL HISTORY : None. SURGICAL HISTORY : None. ENCOUNTER: Subsequent ACUITY: 4 - 6 days PAIN SCORE: Non-responsive. LOCATION: Bilateral chest FINDINGS: The endotracheal tube has its tip approximately 4 cm above the ragini. A nasogastric tube has its tip below diaphragm. Right basilar patchiness is noted consistent with possible pneumonia/atelectasis. C linical correlation is recommended. The heart is stable. CONCLUSION: Right basilar patchiness consistent with possible pneumonia/atelectasis. Clinical correlation is pradeep mmended. Fantasma Cuevas MD on May 05, 2017 at 13:57 Board Certified Radiologist. This report was verified electronically.
[2017-05-05] MEDS: PROPOFOL 1000 MG/100 ML IV PRN (14:05)
[2017-05-05] MEDS: LEVOFLOXACIN 750 MG PREMIX INJ 150 ML IV SCH (14:44)
[2017-05-05] MEDS: PIPERACIL-TAZO 4.5 GM PREMIX 100 ML IV SCH ×2 (14:45→22:27)
[2017-05-05] MEDS ORDERED: SODIUM CHLORID 0.9% 500 ML INJ 500 ML IV ONE (15:45)
[2017-05-05 16:08] LABS: HEMATOCRIT 30.2 % (35.0-46.0); MEAN CELL VOLUME 89.4 FL (80.0-100.0); MEAN CORPUSCULAR HEMOGLOBIN 30.4 PG (27.0-34.0); PLATELET COUNT 184 TH/MM3 (150-450); RED BLOOD COUNT 3.38 MIL/MM3 (4.00-5.30); REVIEW FLAG FINAL; WHITE BLOOD COUNT 10.7 TH/MM3 (4.0-11.0)
[2017-05-05] MEDS ORDERED: ASPIRIN 81 MG CHEW TAB OG-TUBE ONE (16:45)
[2017-05-05] MEDS ORDERED: VANCOMYCIN INJ 1,500 MG in SODIUM CHLORID 0.9% 500 ML INJ 500 ML IV ONE (17:00)
[2017-05-05] MEDS ORDERED: ONDANSETRON HCL 4 MG/2 ML VIAL IV PUSH PRN (17:45)
[2017-05-05 17:47] LABS: BICARBONATE 24.2 MEQ/L (21.0-32.0); MAGNESIUM 1.9 MG/DL (1.5-2.5); POTASSIUM 3.3 MEQ/L (3.5-5.1)
[2017-05-05] MEDS: ICU - POTASSIUM CHLORIDE/AQUEOUS SOLN 20 MEQ/100 ML IVPB IV PRN ×2 (17:56→20:25)
[2017-05-05] MEDS ORDERED: MAGNESIUM SULFATE 1 GM PREMIX 100 ML IV ONE (18:15)
[2017-05-05] MEDS: ENOXAPARIN SODIUM 40 MG/0.4 ML SYRINGE SQ SCH (18:19)
--- NOTE | 2017-05-05 20:24 | RADRPT ---
EXAM DATE/TIME: 05/05/2017 19:41 [facility] COMPARISON: No previous studies available for comparison. INDICATIONS : Vomiting. MEDICAL HISTORY : None. SURGICAL HISTORY : None. ENCOUNTER: Subsequent ACUITY: 4 - 6 days PAIN SCORE: Non-responsive. LOCATION: abdomen. FINDINGS: Nasogastric tube coiled in stomach. Cholecystectomy clips. Rectal temperature probe. Bowel gas patter n nonspecific without obstruction or free air. CONCLUSION: 1. No acute findings. Erik Javed MD on May 05, 2017 at 20:21 Board Certified Radiologist. This report was verified electronically.
[2017-05-05] MEDS ORDERED: METOPROLOL TARTRATE 25 MG TAB PO SCH (21:00)
--- NOTE | 2017-05-05 21:38 | EKG ---
Date Performed: 05/05/2017 Time Performed: 16:23:54 PTAGE: 71 years EKG: Sinus rhythm with frequent PVCs. Inferior infarct - age undetermined Ant/septal and lateral T wave changes may be due to myocardial ischemia Abnormal ECG PREVIOUS TRACING : 05/03/2017 15.54 Compared to previous tracing, heart rate has increased, non specific lateral T wave changes are now present. DOCTOR: Sundar Ordoñez Interpretating Date/Time 05/05/2017 21:36:32
[2017-05-06] VITALS (17 sets, daily range): BP systolic 114–139; BP diastolic 60–89; PULSE 9–100; RESP 15–24; TEMP 98.6–100.4; O2SAT 94–100
[2017-05-06 02:25] LABS: BICARBONATE 20.3 MEQ/L (21.0-32.0); POTASSIUM 4.7 MEQ/L (3.5-5.1)
[2017-05-06] MEDS: RESP: ALBUTEROL 2.5 MG/IPRATROPIUM 0.5 MG NEB (SCH) INH ×4 (03:50→20:37)
[2017-05-06] MEDS: CHLORHEXIDINE GLUCONATE 2 % 1 PACK (2 CLOTHS) TOP SCH (04:00)
[2017-05-06 04:38] LABS: AUTOMATED NEUTROPHIL # 8.3 TH/MM3 (1.8-7.7); BASOPHIL % 0.2 % (0.0-2.0); EOSINOPHIL % 0.1 % (0.0-4.0); HEMATOCRIT 30.2 % (35.0-46.0); HEMO FLAGS DIFF FINAL; LYMPH % 16.2 % (9.0-44.0); LYMPHOCYTE # 1.8 TH/MM3 (1.0-4.8); MEAN CELL VOLUME 90.6 FL (80.0-100.0); MEAN CORPUSCULAR HEMOGLOBIN 29.5 PG (27.0-34.0); MEAN CORPUSCULAR HGB CONC 32.5 % (32.0-36.0); MONO % 9.4 % (0.0-8.0); NEUT % 74.1 % (16.0-70.0); PLATELET COUNT 169 TH/MM3 (150-450); RED BLOOD COUNT 3.33 MIL/MM3 (4.00-5.30); RED CELL DISTRIBUTION WIDTH 13.8 % (11.6-17.2); WHITE BLOOD COUNT 11.2 TH/MM3 (4.0-11.0)
[2017-05-06 04:56] LABS: BICARBONATE 20.4 MEQ/L (21.0-32.0)
[2017-05-06] MEDS: PIPERACIL-TAZO 4.5 GM PREMIX 100 ML IV SCH ×4 (04:59→22:14)
[2017-05-06] MEDS: CHLORHEXIDINE 0.12% (ORAL KIT) 15 ML CUP MT SCH ×2 (08:00→20:00)
[2017-05-06] MEDS: FAMOTIDINE 20 MG/2 ML VIAL IV PUSH SCH ×2 (08:35→20:40)
[2017-05-06] MEDS: MORPHINE SULFATE 2 MG/ML INJ IV PUSH PRN (08:35)
[2017-05-06] MEDS: ARTIFICIAL TEARS OPTH SOLN 15 ML BTL EACH EYE SCH ×3 (08:50→17:28)
[2017-05-06] MEDS: SODIUM CHLORIDE 0.9% FLUSH 10 ML FLUSH IV FLUSH SCH ×2 (08:50→20:40)
[2017-05-06] MEDS: LABETALOL HCL 100 MG/20 ML VIAL IV PUSH PRN (08:50)
[2017-05-06] MEDS: DOCUSATE SODIUM 50 MG/SENNA 8.6 MG TAB PO SCH ×2 (08:54→20:41)
[2017-05-06] MEDS: SODIUM CHLOR 0.45% 1000 ML INJ 1,000 ML IV SCH (09:38)
--- NOTE | 2017-05-06 12:37 | HHI.CCPN ---
Subjective Remarks/Hospital Course 60-70 something year-old female who presents after a syncopal episode. EMS states the patient was sitting on a bench when she apparently had a syncopal episode. When EMS arrived she was GCS was 3, she has spontaneous circulation with a positive radial pulse, and had spontaneous breathing. When they place the patient into the ambulance truck she became agonal with respirations and then went into ventricular fibrillation. They defibrillated the patient twice, she received 1 mg of epinephrine intravenously, and CPR was performed for 5 minutes. EMS states they got return of spontaneous circulation with initial heart rate in the 130s to 140s. They felt there was possible ST elevation in 2 , 3, and aVF, therefore, called a STEMI in the field. Upon arrival the patient is intubated, she required no medications for intubation, with an IO in the left lower extremity. During my evaluation and assessment patient was nonverbal , intubated, not withdrawing to pain. She was immediately evaluated by Dr. Greene community health planning director on-call who is planning to proceed further cardiac workup if there is meaningful neurological improvement. Due to poor neurological exam the therapeutic hypothermia protocol was initiated. Shortly after the transfer to ICU patient starts withdrawing to pain neurologically improving. 05/03/17: Unstable hemodynamics requiring vasopressor support. Gas exchange acceptable. ET tube withdrawn 2 cm after CXR today. 05/04: Just completed rewarming. Remains sedated, orally intubated on mech ventilation. Subjective: 05/05 Temp 38.3 when induced cooling discontinued. Tolerating CPAP 10/5 with RSBI high 50s. , decreased to 5/5. Thick qiu secretions with suctioning. Echo with EF 60-65%. No definite wall motion abnormalities. 05/06: Extubated today and breathing with acceptable comfort. Right base infiltrate worrisome, cough with thick secretions. Good gas exchnage. Objective Vital Signs Date Time Temp Pulse Resp B/P (MAP) Pulse Ox O2 Delivery O2 Flow Rate FiO2 05/06/17 11:33 95 Nasal Cannula 3 05/06/17 08:00 40 05/06/17 08:00 99.2 81 15 128/72 (90) Intake and Output 05/06/17 05/06/17 05/06/17 07:59 15:59 23:59 Intake Total 401.6 ml Output Total 2125 ml Balance -1723.4 ml Result Diagram: 05/06/17 0359 05/06/17 0359 Imaging Last 24 hours Impressions Chest X-Ray 05/02/17 1901 Signed Impressions: Service Date/Time: Tuesday, May 02, 2017 19:25 - CONCLUSION: 1. Endotracheal tube tip in proximal right mainstem bronchus. Dependent atelectasis in the lungs. No pneumothorax. Erik Javed MD Objective Remarks GENERAL: Extubated, responsive. SKIN: dry, no rash. HEAD: Atraumatic. Normocephalic. EYES: Pupils equal and round. Pupils 2 mm bilateral and reactive. ENT: No nasal bleeding or discharge. Endotracheal tube in place. NECK: Trachea midline. Airway widely patent. CARDIOVASCULAR: Regular RR, NL S1S2. RESPIRATORY: Bilateral breath sounds, CTAB. Qiu secretions. GASTROINTESTINAL: Abdomen soft, non-tender, nondistended. BS active. MUSCULOSKELETAL: No obvious deformities. No clubbing. No cyanosis. No edema. Well perfused. NEUROLOGICAL: Eyes open, follows commands. A/P Assessment and Plan Neuro: ?Anoxic encephalopathy - improving. -CT brain 05/02 negative. - EEG - by hemisphere slowing. No epileptiform features. - D/c versed, fentanyl, propofol. - Watch for seizures. Acute Respiratory failure on [facility] ventilation - Intubated for airway protection - CPAP trials daily. - DuoNeb scheduled and when necessary - Extubate, parameters acceptable. Follow right infiltrate Cardiac arrest - V. fib arrest HTN - 2-D echo 05/04 - Echo with EF 60-65%. No definite wall motion abnormalities. -metoprolol 12.5 mg po bid for HTN. Confer with Farzaneh prior to EP study for holding betablocker. Dr. Moy following for cath and EP study next week if neuro status improves. - Troponin elevation mild 0.41. - EKG c/w old inferior lateral LA. - Therapeutic hypothermia protocol completed. Acute kidney injury (resolved) - Creatinine normalized with IV fluid hydration. KVO IVF and may diurese some to facilitate weaning. - Strict I's and O's - Electrolyte replacement per ICU protocol GI/liver: - Swallow eval ID Acute aspiration pneumonia Fever Leukocytosis Send blood cultures, U/a and urine culture, CXR, repeat sputum culture. Followed up CXR which showed RLL infiltrate, will initiate Zosyn 4.5 IV q6 hours and Levaquin 750 mg IV q24 hours. Endocrine Acute stress hyperglycemia (resolved) -Euglycemic, not requiring insulin coverage DVT GI prophylaxis - Teds SCDs - Changed to Lovenox 40 mg subcutaneous daily - Pepcid 20 mg IV q12 hours. ACCESS: Left femoral heat exchange catheter placed 05/03 #3. Removed 05/04 Radial art line 05/03 has been removed. Overall impression: Preserved LV function. Continued neurological improvement. Manuel Valadez MD May 06, 2017 12:37
[2017-05-06] MEDS: LEVOFLOXACIN 750 MG PREMIX INJ 150 ML IV SCH (14:29)
[2017-05-06] MEDS: ENOXAPARIN SODIUM 40 MG/0.4 ML SYRINGE SQ SCH (20:40)
[2017-05-07] VITALS (16 sets, daily range): BP systolic 127–160; BP diastolic 68–94; PULSE 72–96; RESP 16–19; TEMP 98.1–99.8; O2SAT 95–98
[2017-05-07] MEDS: CHLORHEXIDINE GLUCONATE 2 % 1 PACK (2 CLOTHS) TOP SCH (04:00)
[2017-05-07] MEDS: PIPERACIL-TAZO 4.5 GM PREMIX 100 ML IV SCH ×4 (06:11→21:26)
--- NOTE | 2017-05-07 06:39 | RADRPT ---
EXAM DATE/TIME: 05/07/2017 05:12 [place] COMPARISON: CHEST SINGLE AP, May 05, 2017, 13:37. INDICATIONS : Short of breath. MEDICAL HISTORY : SURGICAL HISTORY : ENCOUNTER: Subsequent ACUITY: 4 - 6 days PAIN SCORE: 0/10 LOCATION: Bilateral chest FINDINGS: The heart size is normal. There is increased density at the right medial base. There some prominence of the right hilar region. Left lung is clear. CONCLUSION: Right medial base consolidation which appears to be improving. There is some persistent prominence of the right hilar region. Jordon Baptiste MD on May 07, 2017 at 6:36 Board Certified Radiologist. This report was verified electronically.
[2017-05-07 06:56] LABS: ALT (GPT) 57 U/L (10-53)
[2017-05-07 06:59] LABS: ALKALINE PHOSPHATASE 89 U/L (45-117); TOTAL BILIRUBIN ADULT 0.9 MG/DL (0.2-1.0)
[2017-05-07 07:08] LABS: ANION GAP 8 MEQ/L (5-15); AST (GOT) 43 U/L (15-37); BICARBONATE 25.7 MEQ/L (21.0-32.0); BLOOD UREA NITROGEN 12 MG/DL (7-18); CHLORIDE 109 MEQ/L (98-107); GLOMERULAR FILTRATION RATE 116 ML/MIN (>89); MAGNESIUM 2.2 MG/DL (1.5-2.5); POTASSIUM 3.5 MEQ/L (3.5-5.1); SODIUM (NA) 143 MEQ/L (136-145)
[2017-05-07 07:17] LABS: BASOPHIL # 0.1 TH/MM3 (0-0.2); BASOPHIL % 0.8 % (0.0-2.0); EOSINOPHIL # 0.1 TH/MM3 (0-0.4); EOSINOPHIL % 0.5 % (0.0-4.0); HEMATOCRIT 28.3 % (35.0-46.0); LYMPH % 18.1 % (9.0-44.0); LYMPHOCYTE # 1.8 TH/MM3 (1.0-4.8); MEAN CELL VOLUME 89.7 FL (80.0-100.0); MEAN CORPUSCULAR HEMOGLOBIN 30.1 PG (27.0-34.0); MEAN CORPUSCULAR HGB CONC 33.6 % (32.0-36.0); MONO % 10.1 % (0.0-8.0); NEUT % 70.5 % (16.0-70.0); PLATELET COUNT 169 TH/MM3 (150-450); RED BLOOD COUNT 3.15 MIL/MM3 (4.00-5.30); RED CELL DISTRIBUTION WIDTH 13.6 % (11.6-17.2); WHITE BLOOD COUNT 9.9 TH/MM3 (4.0-11.0)
[2017-05-07 07:18] LABS: HEMO FLAGS AUTO DIFF
[2017-05-07] MEDS: CHLORHEXIDINE 0.12% (ORAL KIT) 15 ML CUP MT SCH ×2 (08:00→20:00)
--- NOTE | 2017-05-07 08:02 | HHI.CCPN ---
Subjective Remarks/Hospital Course 69 something year-old female who presents after a syncopal episode. EMS states the patient was sitting on a bench when she apparently had a syncopal episode. When EMS arrived she was GCS was 3, she has spontaneous circulation with a positive radial pulse, and had spontaneous breathing. When they place the patient into the ambulance truck she became agonal with respirations and then went into ventricular fibrillation. They defibrillated the patient twice, she received 1 mg of epinephrine intravenously, and CPR was performed for 5 minutes. EMS states they got return of spontaneous circulation with initial heart rate in the 130s to 140s. They felt there was possible ST elevation in 2 , 3, and aVF, therefore, called a STEMI in the field. Upon arrival the patient is intubated, she required no medications for intubation, with an IO in the left lower extremity. During my evaluation and assessment patient was nonverbal , intubated, not withdrawing to pain. She was immediately evaluated by Dr. Greene bunch maker hand on-call who is planning to proceed further cardiac workup if there is meaningful neurological improvement. Due to poor neurological exam the therapeutic hypothermia protocol was initiated. Shortly after the transfer to ICU patient starts withdrawing to pain neurologically improving. 05/03/17: Unstable hemodynamics requiring vasopressor support. Gas exchange acceptable. ET tube withdrawn 2 cm after CXR today. 05/04: Just completed rewarming. Remains sedated, orally intubated on mech ventilation. Subjective: 05/05 Temp 38.3 when induced cooling discontinued. Tolerating CPAP 10/5 with RSBI high 50s. , decreased to 5/5. Thick calzada secretions with suctioning. Echo with EF 60-65%. No definite wall motion abnormalities. 05/06: Extubated today and breathing with acceptable comfort. Right base infiltrate worrisome, cough with thick secretions. Good gas exchange. 05/07: CXR with clearing infiltrate right side. Tmax 99.8, WBC normal. Breathing comfortably. Mag, K good. No arrhythmias. Lopressor started, evaluation continues. Objective Vital Signs Date Time Temp Pulse Resp B/P (MAP) Pulse Ox O2 Delivery O2 Flow Rate FiO2 05/07/17 06:00 83 05/07/17 04:00 99.2 16 160/90 (113) 97 05/06/17 20:39 Nasal Cannula 3.00 05/06/17 08:00 40 Intake and Output 05/07/17 05/07/17 05/08/17 08:00 16:00 00:00 Output Total 1000 ml Balance -1000 ml Result Diagram: 05/07/17 0510 05/07/17 0510 Imaging Last 24 hours Impressions Chest X-Ray 05/02/171900 Signed Impressions: Service Date/Time: Tuesday, May 02, 2017 19:25 - CONCLUSION: 1. Endotracheal tube tip in proximal right mainstem bronchus. Dependent atelectasis in the lungs. No pneumothorax. Erik Javed MD Objective Remarks GENERAL: Extubated 05/06, responsive. SKIN: dry, no rash. HEAD: Atraumatic. Normocephalic. EYES: Pupils equal and round. Pupils 2 mm bilateral and reactive. ENT: No nasal bleeding or discharge. NECK: Trachea midline. Airway widely patent. CARDIOVASCULAR: Regular RR, NL S1S2. No JVD. RESPIRATORY: Bilateral breath sounds, clear. Strong cough effort. GASTROINTESTINAL: Abdomen soft, non-tender, nondistended. BS active. MUSCULOSKELETAL: No obvious deformities. No clubbing. No cyanosis. No edema. Well perfused. NEUROLOGICAL: Eyes open, follows commands. Moves 4 limbs with 5/5 strength. O X 3. A/P Assessment and Plan Neuro: ?Anoxic encephalopathy - improving. -CT brain 05/02 negative. - EEG - by hemisphere slowing. No epileptiform features. - D/c versed, fentanyl, propofol. - Watch for seizures. - Resolved. Acute Respiratory failure on [facility] ventilation - Intubated for airway protection - CPAP trials daily. - DuoNeb scheduled and when necessary - Extubate 05/06, parameters acceptable. Follow right infiltrate -> resolving. Cardiac arrest - V. fib arrest - Cath and possible EP study. HTN - 2-D echo 05/04 - Echo with EF 60-65%. No definite wall motion abnormalities. - Metoprolol 12.5 mg po bid for HTN per Cardiology - Troponin elevation mild 0.41. - EKG c/w old inferior lateral VT. - Therapeutic hypothermia protocol completed. Acute kidney injury (resolved) - Creatinine normalized with IV fluid hydration. KVO IVF and may diurese some to facilitate weaning. - Strict I's and O's - Electrolyte replacement per ICU protocol GI/liver: - Swallow eval ID Acute aspiration pneumonia Fever Leukocytosis Send blood cultures, U/a and urine culture, CXR, repeat sputum culture. Followed up CXR which showed RLL infiltrate, will initiate Zosyn 4.5 IV q6 hours and Levaquin 750 mg IV q24 hours. Endocrine Acute stress hyperglycemia (resolved) -Euglycemic, not requiring insulin coverage DVT GI prophylaxis - Teds SCDs - Changed to Lovenox 40 mg subcutaneous daily - Pepcid 20 mg IV q12 hours. ACCESS: Left femoral heat exchange catheter placed 05/03 #3. Removed 05/04 Radial art line 05/03 has been removed. Overall impression: Preserved LV function. Continued neurological improvement. Good hemodynamics. Manuel Valadez MD May 07, 2017 08:02
[2017-05-07 08:09] LABS: BANDS 2 % (0-6); MYELOCYTES 2 % (0-0); NEUTROPHIL # MANUAL DIFF 6.4 TH/MM3 (1.8-7.7); PLATELET ESTIMATE SMEAR NORMAL (NORMAL); PLATELET MORPHOLOGY NORMAL (NORMAL); POLYS (SEG NEUTROPHILS) 61 % (16-70); SCAN/DIFF FINAL DIFF MANUAL; WBC DIFF SAMPLE 100
[2017-05-07] MEDS: FAMOTIDINE 20 MG/2 ML VIAL IV PUSH SCH ×2 (10:32→21:26)
[2017-05-07] MEDS: SODIUM CHLORIDE 0.9% FLUSH 10 ML FLUSH IV FLUSH SCH ×2 (10:32→21:27)
[2017-05-07] MEDS: DOCUSATE SODIUM 50 MG/SENNA 8.6 MG TAB PO SCH ×2 (10:32→21:26)
[2017-05-07] MEDS: ARTIFICIAL TEARS OPTH SOLN 15 ML BTL EACH EYE SCH ×3 (10:33→18:00)
--- NOTE | 2017-05-07 13:11 | PD.CARD.PN ---
Subjective Subjective Remarks Extubated, no CP or SOB Objective Medications Current Medications Medications (Trade) Dose Ordered Sig/Dana Route Start Time Stop Time Status Last Admin (NS Flush) 2 ml UNSCH PRN IV FLUSH 05/02/17 19:30 (NS Flush) 2 ml BID IV FLUSH 05/02/17 21:00 05/07/17 10:32 (Tylenol) 650 mg Q6H PRN PO 05/02/17 19:30 (Pepcid Inj) 20 mg Q12HR IV PUSH 05/02/17 21:00 05/07/17 10:32 (Tears Naturale Opth Soln) 1 drop TID EACH EYE 05/03/17 09:00 05/07/17 10:33 (Duoneb Neb) 1 ampule Q2HR NEB PRN INH 05/02/17 19:30 05/04/17 12:42 Miscellaneous Information 1 Q361D XX 05/02/17 19:30 (Chlorhexidine 2% Cloth) 3 pack Taper DAILY@04 TOP 05/03/17 04:00 04/29/18 03:59 (Chlorhexidine 2% Cloth) 3 pack UNSCH PRN TOP 05/02/17 19:30 (Senia-Colace) 1 tab BID PO 05/02/17 21:00 05/07/17 10:32 (Milk Of Magnesia Liq) 30 ml Q12H PRN PO 05/02/17 19:30 (Senokot) 17.2 mg Q12H PRN PO 05/02/17 19:30 (Dulcolax Supp) 10 mg DAILY PRN RECTAL 05/02/17 19:30 (Lactulose Liq) 30 ml DAILY PRN PO 05/02/17 19:30 (Peridex 0.12% Liq) 15 ml BID@08,20 MT 05/02/17 20:00 05/06/17 08:00 Propofol 100 ml @ 2.139 mls/ hr TITRATE PRN IV 05/02/17 22:30 05/05/17 14:05 Miscellaneous Information D/C ICU ELECTROLYTE ORDERS... UNSCH PRN .XX 05/03/17 00:30 Miscellaneous Information ICU - CALL ORDERING PHYSIC... UNSCH PRN .XX 05/03/17 00:30 Potassium Chloride 100 ml @ 25 mls/hr UNSCH PRN IV 05/03/17 00:30 05/04/17 23:28 (K-Lyte Cl Eff) 50 meq UNSCH PRN PO 05/03/17 00:30 Potassium Chloride 100 ml @ 50 mls/hr UNSCH PRN IV 05/03/17 00:30 05/05/17 20:25 Magnesium Sulfate 4 gm/Sodium Chloride 108 ml @ 54 mls/hr UNSCH PRN IV 05/03/17 00:30 Magnesium Sulfate 2 gm/Sodium Chloride 104 ml @ 52 mls/hr UNSCH PRN IV 05/03/17 00:30 (Mag-Ox) 800 mg UNSCH PRN PO 05/03/17 00:30 Sodium Phosphate 30 mmol/Sodium Chloride 260 ml @ 43.333 mls/ hr UNSCH PRN IV 05/03/17 00:30 05/03/17 06:31 (K-Phos) 2,000 mg UNSCH PRN PO 05/03/17 00:30 Potassium Phosphate 30 mmol/ Sodium Chloride 260 ml @ 43.333 mls/ hr UNSCH PRN IV 05/03/17 00:30 Sodium Chloride 1,000 ml @ 10 mls/hr Q24H IV 05/04/17 10:15 05/06/17 09:38 (Trandate Inj) 20 mg Q4H PRN IV PUSH 05/04/17 10:30 05/06/17 08:50 (Morphine Inj) 2 mg Q2H PRN IV PUSH 05/04/17 16:30 05/06/17 08:35 (Lovenox Inj) 40 mg Q24H SQ 05/05/17 19:00 05/06/17 20:40 Piperacillin Sod/ Tazobactam Sod 100 ml @ 200 mls/hr Q6H IV 05/05/17 16:00 05/07/17 06:11 Levofloxacin/ Dextrose 150 ml @ 100 mls/hr Q24H IV 05/05/17 15:00 05/06/17 14:29 (Zofran Inj) 4 mg Q6H PRN IV PUSH 05/05/17 17:45 05/05/17 17:56 (Lopressor) 25 mg Q12HR PO 05/07/17 13:00 Vital Signs / I&O Vital Signs Date Time Temp Pulse Resp B/P (MAP) Pulse Ox O2 Delivery O2 Flow Rate FiO2 05/07/17 09:44 96 Nasal Cannula 3.00 05/07/17 06:00 83 05/07/17 04:00 82 05/07/17 04:00 99.2 82 16 160/90 (113) 97 05/07/17 02:00 96 05/07/17 00:00 99.8 91 17 139/76 (97) 95 05/07/17 00:00 91 05/06/17 22:00 94 05/06/17 20:39 97 Nasal Cannula 3.00 05/06/17 20:00 98.6 94 22 128/70 (89) 97 05/06/17 20:00 100 05/06/17 18:00 91 05/06/17 16:00 91 05/06/17 16:00 99.3 96 20 126/67 (86) 94 05/06/17 14:06 90 I/O 05/06/17 05/06/17 05/06/17 05/07/17 05/07/17 05/07/17 07:00 15:00 23:00 07:00 15:00 23:00 Intake Total 401.6 ml Output Total 2125 ml 1700 ml 1000 ml Balance -1723.4 ml -1700 ml -1000 ml Intake IV Total 401.6 ml Output Urine Total 1325 ml 1600 ml 1000 ml Gastric Drainage Total 800 ml 100 ml # Bowel Movements 0 0 0 Physical Exam GENERAL: In NAD SKIN: Warm and dry. HEAD: Normocephalic. EYES: No scleral icterus. No injection or drainage. NECK: Supple, trachea midline. No JVD or lymphadenopathy. CARDIOVASCULAR: Regular rate and rhythm without murmurs, gallops, or rubs. RESPIRATORY: Breath sounds equal bilaterally. No accessory muscle use. GASTROINTESTINAL: Abdomen soft, non-tender, nondistended. MUSCULOSKELETAL: No cyanosis, or edema. Laboratory Laboratory Tests Test 05/07/17 05:10 White Blood Count 9.9 TH/MM3 Red Blood Count 3.15 MIL/MM3 Hemoglobin 9.5 GM/DL Hematocrit 28.3 % Mean Corpuscular Volume 89.7 FL Mean Corpuscular Hemoglobin 30.1 PG Mean Corpuscular Hemoglobin Concent 33.6 % Red Cell Distribution Width 13.6 % Platelet Count 169 TH/MM3 Mean Platelet Volume 9.5 FL Neutrophils (%) (Auto) 70.5 % Lymphocytes (%) (Auto) 18.1 % Monocytes (%) (Auto) 10.1 % Eosinophils (%) (Auto) 0.5 % Basophils (%) (Auto) 0.8 % Neutrophils # (Auto) 7.0 TH/MM3 Lymphocytes # (Auto) 1.8 TH/MM3 Monocytes # (Auto) 1.0 TH/MM3 Eosinophils # (Auto) 0.1 TH/MM3 Basophils # (Auto) 0.1 TH/MM3 CBC Comment AUTO DIFF Differential Total Cells Counted 100 Neutrophils % (Manual) 61 % Band Neutrophils % 2 % Lymphocytes % 27 % Monocytes % 8 % Neutrophils # (Manual) 6.4 TH/MM3 Myelocytes 2 % Differential Comment FINAL DIFF MANUAL Platelet Estimate NORMAL Platelet Morphology Comment NORMAL Red Cell Morphology Comment NORMAL Hematology Comments Blood Urea Nitrogen 12 MG/DL Creatinine 0.52 MG/DL Random Glucose 88 MG/DL Total Protein 6.4 GM/DL Albumin 2.6 GM/DL Calcium Level 8.4 MG/DL Magnesium Level 2.2 MG/DL Alkaline Phosphatase 89 U/L Aspartate Amino Transf (AST/SGOT) 43 U/L Alanine Aminotransferase (ALT/SGPT) 57 U/L Total Bilirubin 0.9 MG/DL Sodium Level 143 MEQ/L Potassium Level 3.5 MEQ/L Chloride Level 109 MEQ/L Carbon Dioxide Level 25.7 MEQ/L Anion Gap 8 MEQ/L Estimat Glomerular Filtration Rate 116 ML/MIN Imaging Last 24 hours Impressions Chest X-Ray 05/07/17 0500 Signed Impressions: Service Date/Time: Sunday, May 07, 2017 05:12 - CONCLUSION: Right medial base consolidation which appears to be improving. There is some persistent prominence of the right hilar region. Jordon Baptiste MD Assessment and Plan Problem List: (1) Ventricular fibrillation ICD Codes: I49.01 - Ventricular fibrillation Status: Acute (2) CAD (coronary artery disease) ICD Codes: I25.10 - Atherosclerotic heart disease of [place] coronary artery without angina pectoris (3) Hyperlipidemia ICD Codes: E78.5 - Hyperlipidemia, unspecified (4) HTN (hypertension) ICD Codes: I10 - Essential (primary) hypertension Assessment and Plan Stable from cardiac standpoint. No significant arrhythmias. Extubated yesterday. Proceed with cath and possible PCI; possible EPS/ICD if necessary later. D/w pt's family. Quadrat,Otakar MD May 07, 2017 13:11
[2017-05-07] MEDS: METOPROLOL TARTRATE 25 MG TAB PO SCH ×2 (13:33→21:00)
[2017-05-07] MEDS ORDERED: HEPARIN-NS/PF INJ 500 ML ONE (16:10)
[2017-05-07] MEDS ORDERED: MIDAZOLAM HCL 2 MG/2 ML VIAL ONE (16:11)
[2017-05-07] MEDS: ASPIRIN EC 81 MG TABEC PO SCH (17:30)
[2017-05-07] MEDS ORDERED: SODIUM CHLOR 0.9% 1000 ML INJ 1,000 ML IV SCH (18:00)
--- NOTE | 2017-05-07 18:05 | CATHPROC ---
[employer] HIS Report Study Information Study Number Admission Scheduled Start Study Start [id number] May 02 2017 7:19PM 05/07/2017 May 07 2017 3:54PM [place] Service Cardiac Catheterization Admit Source Facility Department Emergency department [facility] - Clinical Business Analyst Physician and Clinical Staff Initial Deanna Mcnally Waiter/Waitress Formal Fidelia Irene,LESLEY Waiter/Waitress Formal Aniya Nice BSRN Recorder Cristin Lin,RT(R) Recorder Yolande Gupta,K 12 PRINCIPAL TECH2 Scrub Diane Wilhelm,RT(R) (BS) Procedures Performed Procedure Location (Site) Vessel Name Angiogram LV LV Ventricle Coronary Angiograms LCA Left Coronary Coronary Angiograms RCA Right Coronary L Heart Cath Equipment Time Developer Advisor Description Size Mfg Part Number Used/Scraped TRANSDUCER, LOURDES [id number] 16:03 [employer]uss Systems * Used W/STOCKCOCK *[id number] *[id number] [id number] *[id number] 16:03 [employer] PACK, CCL CUSTOM * Used *[id number] 16:03 howsimple PACER PEN, SKIN DUAL W/ RULER * Used *[id number] 0811-23 16:26 [employer] PIGTAIL ANG. CATHETER FR 5 Used *[id number] 16:03 [employer] WIRE, 3MMJ .035 180CM 180CM Used *[id number] PROBE COVER, STERILE [id number] 16:03 RAP Index MEDICAL * Used ULTRASOUND W/ GEL *[id number] 16:03 NAMIC MANIFOLD, 4 PORT * Used *[id number] 16:20 NAMIC TUBING, HIGH PRESSURE 48" 48" Used *[id number] 16:03 NAMIC TUBING, HIGH PRESSURE 48" 48" Used *[id number] 16:03 NYCOMED OMNIPAQUE, 350 MG, 150ML 150ML [id number] Used 16:56 NYCOMED OMNIPAQUE, 350 MG, 50ML 50ML [id number] Used [id number] 16:03 [employer]DA[employer] MEDICAL BLANKET,WARM AIR CCL * Used *[id number] 16:03 TERUMO MEDICAL SHEATH, FR5 TERUMO (10CM) FR 5 Used *[id number] History: Current Medications Medication Dosage/Unit Route Frequency Last Date/Time Taken LOPRESSOR LOVENOX History: Allergies Allergy Reaction No Allergy Information Available History: Risk Factors Family History of Hypertension Dyslipidemia Previous DE Previous Heart Failure Premature CAD Yes Yes No Yes No Prior Valve Prior PCI Prior CABG Surgery No No No Cerebrovascular Peripheral Artery Chronic Lung On Dialysis Diabetes Disease Disease Disease No No No No No History: Symptoms/Diagnosis Selection Items Syncope History: Stress Tests Stress or Imaging Studies Performed No History: Other Current Smoker No Labs Hgb (g/dl) Hct (%) WBC (l/cumm) Platelets (thousands) 11.60-17.00 35.00-51.00 4.00-11.00 150.00-450.00 9.5 28.3 3.1 169 Glucose (mg/dl) BUN (mg/dl) Creatinine (mg/dl) BUN:Creatinine (1:x) 74.00-106.00 7.00-18.00 0.50-1.30 10.00-20.00 116 12 0.5 24 Na (meq/l) K (meq/l) 136.00-145.00 3.50-5.10 143 3.5 INR (PTT:PT) 0.90-1.10 1.1 Troponin I (ng/ml) CPK-MB (ng/ML) 0.02-0.05 0.50-3.60 0.1 Not Drawn Medication Medication Total Dose (Bolus/Oral) Medication Total Dosage/Unit 1% XYLOCAINE 20 mL FENTANYL 50 mcg OXYGEN 2 l/min VERSED 2 mg Medications (Bolus/Oral) Medication Time Given Dosage/Unit Administered By Reason OXYGEN 05/07/2017 4:05:49 PM 2 l/min Aniya Nice 2 l/min OXYGEN given in lab by Aniya Nice BSRN via Nasal. Ordered by Deanna Moy. VERSED 05/07/2017 4:40:12 PM 1 mg Fidelia Irene 1 mg VERSED given in lab by Fidelia Irene RN in Right Wrist via Peripheral IV. Ordered by Deanna Moy. FENTANYL 05/07/2017 4:41:27 PM 25 mcg Fidelia Irene 25 mcg FENTANYL given in lab by Fidelia Irene RN in Right Wrist via Peripheral IV. Ordered by Deanna Finch. FENTANYL 05/07/2017 4:43:21 PM 25 mcg Fidelia Irene 25 mcg FENTANYL given in lab by Fidelia Irene RN in Right Wrist via Peripheral IV. Ordered by Deanna Finch. VERSED 05/07/2017 4:51:05 PM 1 mg Aniya Nice 1 mg VERSED given in lab by Aniya Nice BSRN in Right Wrist via Peripheral IV. Ordered by Deanna Padilla. 1% XYLOCAINE 05/07/2017 4:51:27 PM 20 mL Fidelia Irene 20 mL 1% XYLOCAINE given in lab by Fidelia Irene, LESLEY via Subcutaneous. Ordered by Deanna Moy. Medication (Drip) Medication Time Given Dosage/Unit Concentration/Unit Diluent (ml) Solution IV Solutions 05/07/2017 4:03:11 PM 50 mL (IV) NaCl .9 IV Solutions given in lab by Fidelia Irene RN in Right Antecubital via Peripheral IV. Pump/Drip Fl ow using NaCl .9. Initial Case Assessment Cardiovascular HR Rhythm NIBP Chest Pain 90 SR 162/93 0 Edema Present Skin color Skin None Normal Warm Circulatory - Right Pulses Dorsalis Pedis Femoral 2 2 Scale (0,1,2,3,4,d) Circulatory - Left Pulses Dorsalis Pedis Femoral 2 2 Scale (0,1,2,3,4,d) Neurological State Oriented to time-place- Alert Moves all extremities person Respiration - General Respiration Rate SpO2 (%) (B/min) 20 92 Final Case Assessment Cardiovascular HR Rhythm NIBP Chest Pain 81 SR 148/94 0 Edema Present Skin color Skin None Normal Warm Circulatory - Right Pulses Dorsalis Pedis Femoral 2 2 Scale (0,1,2,3,4,d) Circulatory - Left Pulses Dorsalis Pedis Femoral 2 2 Scale (0,1,2,3,4,d) Neurological State Oriented to time-place- Alert Moves all extremities person Respiration - General Respiration Rate SpO2 (%) O2 (lpm) (B/min) 18 100 2 Chronological Log Time Study Chronological Log 15:55:38 Patient arrived via Bed. 16:02:58 Patient Name, D.O.B, / Armband Verified By R.N. 16:02:59 Consent signed by the physician and the patient and verified by the Clinical Business Analyst staff. 16:02:59 Pre-op and post- op instructions given; patient acknowledges understanding of instructions. 16:03:04 Verbal Stimulation=2 Physical Stimulation=2 Airway=2 Respiration=2 TOTAL=8. (0=absent, 1=li mited, 2=present) 16:03:07 Patient has been NPO for More than 6Hrs. 16:03:08 Skin Breakdown- none per pt 16:03:08 Patient Warmer Placed on the Table. 16:03:09 Carlos Prominences Protected 16:03:10 A # 20 IV was noted in the Antecubital (right). Grade = 0 16:03:11 IV Solutions given in lab by Fidelia Irene RN in Right Antecubital via Peripheral IV. Pu mp/Drip Flow using NaCl .9. 16:03:11 History and physical on the chart or being dictated. Assessment: Initial Case, HR=90 BPM, Rhythm=SR, RNMU=844/93 mmhg, Chest Pain=0, Edema=None, Col or=Normal, Skin = Warm Right Pulses: Ashwin Ped=2, Femoral=2 16:03:13 Left Pulses: Ashwin Ped=2, Femoral=2 Neurological: State=Alert, Ox3, LOPEZ Respiration: Resp=20 B/min, SpO2=92 % 16:05:49 2 l/min OXYGEN given in lab by Aniya Nice BSRN via Nasal. Ordered by Deanna Moy . 16:06:48 Reference ECG taken Vitals capture started with the following parameters, Patient=Adult, Interval=5 min, Initial Pr pzlgbg=181 mmHg, 16:10:22 Deflation Rate=5 mmHg, Cuff placed on Left Arm 16:11:03 HR=88 bpm, RSTS=443/93 mmhg, SpO2=92.0 %, Resp=20 B/min 16:15:58 UL=320 bpm, HLYU=627/100 mmhg, SpO2=91.0 %, Resp=20 B/min, Pain=0, Bon=10, Monroy=2 16:17:14 Bilateral groins prepped with 2% chlorhexidine, and draped after a 3 minute waiting time. 16:18:00 4L of O2 administered 16:19:30 paged 16:20:59 HR=88 bpm, VQPV=884/104 mmhg, SpO2=97.0 %, Resp=18 B/min, Pain=0, Bon=10, Monroy=2 16:21:29 Pressure channel 1 zeroed. 16:25:58 HR=86 bpm, RSFC=805/101 mmhg, SpO2=97.0 %, Resp=15 B/min, Pain=0, Bon=10, Monroy=2 16:30:42 MD arrived. 16:33:25 Vitals capture stopped. 16:37:39 #20 Right AC IV not good, #22 placed in right wrist in lab by Mateo Ya. 16:38:45 A # 22 IV was noted in the Wrist (right). Grade = 0 Vitals capture started with the following parameters, Patient=Adult, Interval=5 min, Initial Pr vijgef=847 mmHg, 16:39:34 Deflation Rate=5 mmHg, Cuff placed on Left Arm 16:40:12 1 mg VERSED given in lab by Fidelia Irene, LESLEY in Right Wrist via Peripheral IV. Ordered b y Deanna Moy. 16:40:14 HR=88 bpm, KDNM=301/97 mmhg, SpO2=97.0 %, Resp=20 B/min, Pain=0, Bon=10, Monroy=2 16:41:27 25 mcg FENTANYL given in lab by Fidelia Irene, LESLEY in Right Wrist via Peripheral IV. Order ed by Deanna Moy. 16:43:21 25 mcg FENTANYL given in lab by Fidelia Irene RN in Right Wrist via Peripheral IV. Order ed by Deanna Moy. 16:45:15 HR=84 bpm, HDCQ=806/81 mmhg, SpO2=96.0 %, Resp=14 B/min, Pain=0, Bon=10, Monroy=2 16:50:08 HR=84 bpm, ZHRR=422/89 mmhg, SpO2=97.0 %, Resp=14 B/min, Pain=0, Bon=10, Monroy=2 Time Out. Correct patient, correct procedure, correct physician, power injector loaded with con trast with surgical team 16:50:09 present. Time Out Concurred by MD and individual staff in procedure. 16:51:05 1 mg VERSED given in lab by Aniya Nice BSRN in Right Wrist via Peripheral IV. Ordere d by Deanna Moy. 16:51:15 Case Start 16:51:27 20 mL 1% XYLOCAINE given in lab by Fidelia Irene RN via Subcutaneous. Ordered by Deanna Moy. 16:53:39 Access site was Right Femoral Artery. 16:54:12 A SHEATH, FR5 TERUMO (10CM) FR 5 was advanced into the Fem Art (right) using the Modified S eldinger technique. A AR MOD INFINITI CATHETER FR 5 was advanced over a wire. OMNIPAQUE, 350 MG, 150ML 150ML was us ed for 16:54:22 injections. Recorded Pressure: LV, HR=79, Condition=Condition 1 16:54:53 (Left Ventricle) LV 128/3/11 16:55:46 HR=80 bpm, IRIM=129/79 mmhg, SpO2=98.0 %, Resp=13 B/min, Pain=0, Bon=10, Monroy=2 16:55:58 The LV was injected at 10 cc/sec for a total of 30. OMNIPAQUE, 350 MG, 50ML 50ML used. Recorded Pressure: LV, Ao, HR=91, Condition=Condition 1 16:56:45 (Left Ventricle) LV 135/8/10, (Aorta) Ao 135/69/98 16:57:29 Catheter was removed A JL 4.0 INFINITI CATHETER FR 5 was advanced over a wire. OMNIPAQUE, 350 MG, 150ML 150ML was us ed for 16:57:37 injections. Recorded Pressure: Ao, HR=80, Condition=Condition 1 16:58:24 (Aorta) Ao 135/68/97 16:58:40 The LCA was injected and visualized at various angles. OMNIPAQUE, 350 MG, 150ML 150ML used . 17:00:08 HR=82 bpm, DOOY=766/83 mmhg, SpO2=98.0 %, Resp=19 B/min, Pain=0, Bon=10, Monroy=2 17:00:47 Catheter was removed A AR MOD INFINITI CATHETER FR 5 was advanced over a wire. OMNIPAQUE, 350 MG, 150ML 150ML was us ed for 17:00:47 injections. 17:01:54 The RCA was injected and visualized at various angles. OMNIPAQUE, 350 MG, 150ML 150ML used . 17:03:50 Catheter was removed 17:04:46 Catheter(s) removed without difficulty 17:05:07 HR=87 bpm, UTST=741/88 mmhg, SpO2=97.0 %, Resp=17 B/min, Pain=0, Bon=10, Monroy=2 17:06:30 Case End 17:10:10 HR=86 bpm, BAKX=491/89 mmhg, SpO2=98 %, Resp=15 B/min, Pain=0, Bon=10, Monroy=2 17:12:27 Sheath removed; pressure applied to access site. 17:15:50 HR=85 bpm, RODH=220/81 mmhg, SpO2=98 %, Resp=15 B/min, Pain=0, Bon=10, Monroy=2 17:20:17 HR=80 bpm, HDJG=911/84 mmhg, SpO2=95 %, Resp=15 B/min, Pain=0, Bon=10, Monroy=2 17:25:14 HR=79 bpm, PBVP=256/86 mmhg, SpO2=95 %, Resp=19 B/min, Pain=0, Bon=10, Monroy=2 17:29:58 HR=89 bpm, ZJUB=097/93 mmhg, SpO2=97.0 %, Resp=17 B/min, Pain=0, Bon=10, Monroy=2 17:32:25 Sterile dressing applied to site 17:35:40 HR=81 bpm, EYUM=207/97 mmhg, SpO2=98.0 %, Resp=17 B/min, Pain=0, Bon=10, Monroy=2 17:40:17 HR=84 bpm, BUKI=536/85 mmhg, SpO2=99.0 %, Resp=18 B/min, Pain=0, Bon=10, Monroy=2 17:45:14 HR=77 bpm, LEPO=381/92 mmhg, SpO2=99.0 %, Resp=14 B/min, Pain=0, Bon=10, Monroy=2 17:50:17 HR=82 bpm, FDTN=583/86 mmhg, SpO2=99.0 %, Resp=15 B/min, Pain=0, Bon=10, Monroy=2 17:55:14 HR=81 bpm, WIIW=130/94 mmhg, HxL8=081.0 %, Resp=18 B/min, Pain=0, Bon=10, Monroy=2 Assessment: Final Case, HR=81 BPM, Rhythm=SR, GZEX=836/94 mmhg, Chest Pain=0, Edema=None, Color =Normal, Skin = Warm Right Pulses: Ashwin Ped=2, Femoral=2 17:55:28 Left Pulses: Ashwin Ped=2, Femoral=2 Neurological: State=Alert, Ox3, LOPEZ Respiration: Resp=18 B/min, QpW0=736 %, O2=2 lpm 18:00:45 No case complications noted. 18:00:53 Cine recording checked. 18:00:59 Contrast Scanned 18:01:32 Patient moved to stretcher 18:02:00 Bedside Report will be given. 18:03:03 A Left Heart Cath was performed. End Study - Contrast Media Used In Study Contrast Total Opened (mL) Total Used (mL) Total Wasted (mL) Omnipaque 100 100 0 End Study - Maximum Contrast Load Max Contrast Load (mL) 710.0 End Study - Radiation Exposure Fluoro Time (minutes) 1.6 End Study - Patient Disposition Complications Transferred To No Critical Care Bed
[2017-05-07] MEDS: LEVOFLOXACIN 750 MG PREMIX INJ 150 ML IV SCH (20:33)
[2017-05-08] VITALS (24 sets, daily range): BP systolic 133–181; BP diastolic 72–103; PULSE 68–93; RESP 16–20; TEMP 97.4–98.9; O2SAT 91–97
[2017-05-08] MEDS: CHLORHEXIDINE GLUCONATE 2 % 1 PACK (2 CLOTHS) TOP SCH (04:00)
[2017-05-08] MEDS: PIPERACIL-TAZO 4.5 GM PREMIX 100 ML IV SCH ×4 (04:19→22:49)
[2017-05-08 06:39] LABS: BICARBONATE 25.8 MEQ/L (21.0-32.0); POTASSIUM 3.7 MEQ/L (3.5-5.1)
[2017-05-08 06:41] LABS: HDL CHOLESTEROL 46.5 MG/DL (40.0-60.0)
[2017-05-08] MEDS ORDERED: IOHEXOL 350 MG/ML 100 ML BTL (for Cath Lab) OTHER ONE (07:59)
[2017-05-08] MEDS: CHLORHEXIDINE 0.12% (ORAL KIT) 15 ML CUP MT SCH ×2 (08:00→20:00)
[2017-05-08] MEDS: ARTIFICIAL TEARS OPTH SOLN 15 ML BTL EACH EYE SCH ×3 (09:00→18:00)
[2017-05-08] MEDS: DOCUSATE SODIUM 50 MG/SENNA 8.6 MG TAB PO SCH ×2 (09:17→21:00)
[2017-05-08] MEDS: METOPROLOL TARTRATE 25 MG TAB PO SCH ×2 (09:17→21:44)
[2017-05-08] MEDS: LISINOPRIL 5 MG TAB PO SCH (09:17)
[2017-05-08] MEDS: ASPIRIN EC 81 MG TABEC PO SCH (09:18)
[2017-05-08] MEDS: SODIUM CHLORIDE 0.9% FLUSH 10 ML FLUSH IV FLUSH SCH ×2 (09:19→21:46)
[2017-05-08] MEDS: FAMOTIDINE 20 MG/2 ML VIAL IV PUSH SCH ×2 (09:22→21:46)
[2017-05-08] MEDS: SODIUM CHLOR 0.45% 1000 ML INJ 1,000 ML IV SCH (10:04)
[2017-05-08] MEDS ORDERED: ISOPROTERENOL HCL 1 MG/5 ML AMP ONE (13:35)
[2017-05-08] MEDS ORDERED: HEPARIN-NS/PF INJ 500 ML ONE (14:08)
[2017-05-08] MEDS ORDERED: SODIUM CHLOR 0.9% 250 ML INJ 250 ML ONE (14:32)
[2017-05-08] MEDS ORDERED: ceFAZolin INJ 1,000 MG VIAL ONE (14:32)
[2017-05-08] MEDS ORDERED: VANCOMYCIN HCL 1000 MG VIAL ONE (14:32)
[2017-05-08] MEDS ORDERED: GENTAMICIN SULFATE 80 MG/2 ML VIAL ONE (15:06)
--- NOTE | 2017-05-08 15:09 | CATHPROC ---
[facility] HIS Report Study Information Study Number Admission Scheduled Start Study Start [id number] May 02 2017 7:19PM 05/08/2017 May 08 2017 1:15PM [place] [facility] Cardiac Pacer/ICD Admit Source Facility Department Other [facility] - Inspector Rubber Stamp Die Physician and Clinical Staff Initial Deanna Mcnally [place] Paralegal Christy Polk,[place] TECH2 Other Anesthesia, AIRBORNE ELECTRONICS ANALYST Recorder Fidelia Irene,RN Recorder Shahla Gill RN Scrub Beau Sanders,RT(R) Equipment Time Sales Professional Bilingual Description Size Mfg Part Number Used/Scraped [id number] 13:21 BUNDLE-[employer]. ELLEN CATHETER, JSN, QUAD BUNDLE FR 5 *[id number] Used BUNDLE [id number] 13:21 BUNDLE-[employer]. ELLEN CATHETER, JSN, QUAD BUNDLE FR 5 *[id number]- Used BUNDLE [id number] 13:21 BUNDLE-[employer]. ELLEN CATHETER, JSN, QUAD BUNDLE FR 5 *[id number] Used BUNDLE 13:18 CONMED LEADWIRE, DEFIBRILLATION PAD 2001M-[id number] Used [id number] 13:18 NoteSick INDUSTRIES PACK, CCL CUSTOM * Used *[id number] 13:18 NoteSick PACER TAYLOR, LIMB * 2530 *[id number] Used [id number] 13:18 Genomic Expression MEDICAL BLANKET,WARM AIR CCL * Used *[id number] 13:24 [employer]. ELLEN MEDICAL SHEATH, FR7 FAST CATH ( ACT) FR 7 [id number] Used 13:24 [employer] ELLEN MEDICAL SHEATH, FR7 FAST CATH ( ACT) FR [address] [id number] Used 13:24 [employer] ELLEN MEDICAL SHEATH, FR7 FAST CATH ( ACT) FR 7 [id number] Used History: Allergies Allergy Reaction No Allergy Information Available Labs Hgb (g/dl) Hct (%) RBC (MIL/MM3) WBC (l/cumm) Platelets (thousands) 11.60-17.00 35.00-51.00 4.00-5.90 4.00-11.00 150.00-450.00 9.0 28 3.1 9.9 169 Glucose (mg/dl) BUN (mg/dl) Creatinine (mg/dl) BUN:Creatinine (1:x) 74.00-106.00 7.00-18.00 0.50-1.30 10.00-20.00 89 11 0.4 27.5 Na (meq/l) K (meq/l) 136.00-145.00 3.50-5.10 144 3.7 INR (PTT:PT) 0.90-1.10 1.1 Medication Medication Total Dose (Bolus/Oral) Medication Total Dosage/Unit 1% XYLOCAINE 20 mL Medications (Bolus/Oral) Medication Time Given Dosage/Unit Administered By Reason 1% XYLOCAINE 05/08/2017 2:36:15 PM 20 mL Deanna Moy 20 mL 1% XYLOCAINE given in lab by Deanna Moy in Right Groin via Subcutaneous. Ordered by Deanna Villeda. Medication (Drip) Medication Time Given Dosage/Unit Concentration/Unit Diluent (ml) Solution 05/08/2017 12:00:00 ANCEF 1 g AM 1 g ANCEF given in lab by Anesthesia, AIRBORNE ELECTRONICS ANALYST via Peripheral IV. Ordered by Deanna Moy. Reason: As per physicians verbal order. ANCEF 05/08/2017 2:34:25 PM 1 g 1 g ANCEF given in lab by Anesthesia, AIRBORNE ELECTRONICS ANALYST via Peripheral IV. Ordered by Deanna Moy. Reason: As per physicians verbal order. VANCOMYCIN DRIP 05/08/2017 2:36:06 PM 1 g 1 g VANCOMYCIN DRIP given in lab by Anesthesia, AIRBORNE ELECTRONICS ANALYST via Peripheral IV. Ordered by Deanna Moy. R festus: As per physicians verbal order. Initial Case Assessment Cardiovascular HR Rhythm NIBP Chest Pain 90 sinus, irreg 174/95 0 Edema Present Skin color Skin None Normal Warm Dry Circulatory - Right Pulses Dorsalis Pedis 2 Scale (0,1,2,3,4,d) Circulatory - Left Pulses Dorsalis Pedis 2 Scale (0,1,2,3,4,d) Circulatory - Lower Extremities Color Lower Right Color Lower Left Normal Normal Neurological State Oriented to time-place- Alert Moves all extremities person Respiration - General Respiration Rate SpO2 (%) (B/min) 20 94 Chronological Log Time Study Chronological Log 1 g ANCEF given in lab by Anesthesia, AIRBORNE ELECTRONICS ANALYST via Peripheral IV. Ordered by Deanna Moy. Reaso n: As per physicians 0:00:00 verbal order. 13:50:40 Patient arrived via Bed. 13:50:41 Patient Name, D.O.B, / Armband Verified By R.N. 13:50:42 Consent signed by the physician and the patient and verified by the Inspector Rubber Stamp Die staff. 13:50:44 Pre-op and post- op instructions given; patient acknowledges understanding of instructions. 13:50:47 History and physical on the chart. 13:50:48 Patient has been NPO for More than 6Hrs. Skin Breakdown- an occlusive dsg is present to right groin from cardiac cath access yesterday. no 13:50:49 hematoma/ecchymosis/oozing seen. 3 inch reddened/chapped area along spinal bony prominences. 13:50:50 Patient Warmer Placed on the Table. 13:50:52 Carlos Prominences Protected 13:50:54 A # 20 IV was noted in the Wrist (left). Grade = 0 0.9%nacl at kvo. 13:51:29 A # 20 IV was noted in the Wrist (right). Grade = 0 0.9%nacl at kvo. 13:52:30 2% CHLORHEXIDINE GLUCONATE WASH AND NASAL SWIPE DONE PRIOR TO PROCEDURE. 13:53:16 Disposable Defibrillator Pads Placed On Patient. 13:54:11 Bovie ground pad applied to: right thigh 13:55:46 Anesthesia at bedside. Assumes care of patient. 14:02:14 Table restraints applied according to hospital policy 14:09:44 Verbal Stimulation=2 Physical Stimulation=2 Airway=2 Respiration=2 TOTAL=8. (0=absent, 1=li mited, 2=present) Assessment: Initial Case, HR=90 BPM, Rhythm=sinus, irreg, VZFR=298/95 mmhg, Chest Pain=0, Edema =None, Color=Normal, Skin = Warm, Dry Right Pulses: Ashwin Ped=2 Left Pulses: Ashwin Ped=2 14:10:08 Lower Right Extremities: Color=Normal Lower Left Extremities: Color=Normal Neurological: State=Alert, Ox3, LOPEZ Respiration: Resp=20 B/min, SpO2=94 % 14:11:53 MD arrived and spoke with pt. 14:12:35 Reference ECG taken 14:13:52 Bilateral groins prepped with 2% chlorhexidine, and draped after a 3 minute waiting time. 14:20:[address] Chen at bedside. 14:23:00 MD paged 14:26:31 MD arrived. 1 g ANCEF given in lab by Anesthesia, AIRBORNE ELECTRONICS ANALYST via Peripheral IV. Ordered by Quadrat, [place]. Reaso n: As per physicians 14:34:25 verbal order. Time Out. Correct patient, procedure, procedure equipment, site and side verified with physicia n present. Time 14:35:36 concurred by MD, individual staff and AIRBORNE ELECTRONICS ANALYST. Time Out #2 - Consents verified, patient in correct position, all results are labled and displa yed, safety precautions 14:35:40 taken, antibiotics administered. Time out concurred by MD, individual staff and AIRBORNE ELECTRONICS ANALYST in procedu re 14:35:56 Case Start 1 g VANCOMYCIN DRIP given in lab by Anesthesia, AIRBORNE ELECTRONICS ANALYST via Peripheral IV. Ordered by Jorgito Moy. Reason: As 14:36:06 per physicians verbal order. 14:36:15 20 mL 1% XYLOCAINE given in lab by Deanna Moy in Right Groin via Subcutaneous. Ordered by Deanna Moy. 14:37:31 Vascular access was obtained in the Fem Vein (right). 14:37:33 Vascular access was obtained in the Fem Vein (right). 14:38:00 Vascular access was obtained in the Fem Vein (right). A SHEATH, FR7 FAST CATH ( ACT) FR 7 was advanced into the Fem Vein (right) using the Modified S eldinger 14:40:34 technique. A SHEATH, FR7 FAST CATH ( ACT) FR 7 was advanced into the Fem Vein (right) using the Modified S eldinger 14:40:44 technique. A SHEATH, FR7 FAST CATH ( ACT) FR 7 was advanced into the Fem Vein (right) using the Modified S eldinger 14:41:00 technique. A CATHETER, JSN, QUAD BUNDLE FR 5 was advanced vis Fem Vein (right) and placed in the CS. Place ment was 14:41:37 visually confirmed under fluoroscopy. A CATHETER, JSN, QUAD BUNDLE FR 5 was advanced vis Fem Vein (right) and placed in the HIS. Plac ement was 14:41:49 visually confirmed under fluoroscopy. A CATHETER, JSN, QUAD BUNDLE FR 5 was advanced vis Fem Vein (right) and placed in the RVA. Plac ement was 14:41:54 visually confirmed under fluoroscopy. 14:51:40 EPS in progress. 14:58:03 EPS complete. 14:58:44 Ventricular tachycardia induced. Defib with 200 joules. Rhythm SR. 15:06:36 EP Procedure was performed. 15:08:36 EPS complete. 15:12:00 Case End End Study - Contrast Media Used In Study Contrast Total Opened (mL) Total Used (mL) Total Wasted (mL) Unspecified 0 0 0 End Study - Maximum Contrast Load Max Contrast Load (mL) 906.3 End Study - Radiation Exposure Fluoro Time (minutes) 3.4 End Study - Patient Disposition Complications Transferred To Interventional Outcome No Telemetry Bed successful
[2017-05-08] MEDS ORDERED: LIDOCAINE HCL 2% 50 ML VIAL ONE (15:20)
--- NOTE | 2017-05-08 17:11 | CATHPROC ---
[employer] HIS Report Study Information Study Number Admission Scheduled Start Study Start [id number] May 02 2017 7:19PM 05/08/2017 May 08 2017 3:10PM [place] [facility] Electrophysiology Study Admit Source Facility Department Other [facility] - [place] [employer] Physician and Clinical Staff Initial Deanna Mcnally Pet Care Assistant Shahla Gill,[place] Pet Care Assistant Christy Polk,SQL BI DEVELOPER TECH2 Other Anesthesia, CIRCULATION LIBRARIAN Recorder Fidelia Irene RN Recorder Shahla Gill,[place] Scrub Beau SandersRT(R) Procedures Performed Procedure Lead Insertion Equipment Time Roll Forger Description Size Mfg Part Number Used/Scraped 15:16 GloNav DRAPE, RAY[place]IELD X-RAY 12X17 12X17 D-100 *[id number] Used INTRODUCER SET, 15:19 [employer] FR 5 [id number] *[id number] Used MICROPUNCTURE, STIFFENED INTRODUCER SET, 15:19 [employer]. FR 5 [id number] *[id number] Used MICROPUNCTURE, STIFFENED [id number] 15:16 [employer] DRAPE, IOBAN 2 [id number] 26cm x 20cm Used *[id number] 15:20 [employer] PACER SAFE SHEATH, FR7, 13CM FR 7 [id number] Used 15:20 VuCOMP MEDICAL PACER SAFE SHEATH, FR9, 13CM FR 9 [id number] Used PROBE COVER, STERILE [id number] 15:18 Amanda Huff DBA SecuRecovery * Used ULTRASOUND W/ GEL *[id number] 15:23 Needle Sponge Count 2 22 Used 15:23 Needle Sponge Count 30 1 Used 15:23 Needle Sponge Count 6 6 Used DEFIBRILLATOR, EVERA MRI XT 16:14 VITATRON MEDTRONIC DDE-DDDR [id number] Used [id number] 16:01 VITATRON [employer] LEAD, CAPSUREFIX NOVUS 45CM 45CM Used *[id number] LEAD, SPRINT QUATTRO SECURE 15:53 VITATRON MEDTRONIC * [id number] Used 55CM Equipment Model, Serial, Lot Number and Expiration Data Description Model Number Serial Number Lot Number Expiration D ate DEFIBRILLATOR, EVERA MRI XT [id number] 09-01-2018 LEAD, CAPSUREFIX NOVUS 45CM 5076-45 [id number] 01-30-2019 LEAD, SPRINT QUATTRO SECURE 6947M [id number] 11-10-2017 55CM History: Allergies Allergy Reaction No Allergy Information Available Medication Medication Total Dose (Bolus/Oral) Medication Total Dosage/Unit 2% XYLOCAINE 50 mL Medications (Bolus/Oral) Medication Time Given Dosage/Unit Administered By Reason 2% XYLOCAINE 05/08/2017 3:34:05 PM 50 mL Deanna Moy 50 mL 2% XYLOCAINE given in lab by Deanna Moy in Left upper chest via Subcutaneous. Ordered by Deanna Calabrese. Medication (Drip) Medication Time Given Dosage/Unit Concentration/Unit Diluent (ml) Solution ANCEF 05/08/2017 3:14:35 PM 1 g 1 g ANCEF given in lab by Anesthesia, CIRCULATION LIBRARIAN via Peripheral IV. Ordered by Deanna Moy. Reason: As per physicians verbal order. Final Case Assessment Cardiovascular HR Rhythm NIBP Chest Pain 83 sr 140/81 0 Edema Present Skin color Skin None Normal Warm Dry Circulatory - Right Pulses Dorsalis Pedis Radial 2 2 Scale (0,1,2,3,4,d) Circulatory - Left Pulses Dorsalis Pedis Radial 2 2 Scale (0,1,2,3,4,d) Circulatory - Lower Extremities Color Lower Right Color Lower Left Normal Normal Neurological State Oriented to time-place- Alert Moves all extremities person Respiration - General Respiration Rate SpO2 (%) O2 (lpm) (B/min) 16 94 4 Chronological Log Time Study Chronological Log 15:12:41 Sheath(s) left in place, secured, 0.9ns connected and will be removed at end of case. 15:12:41 Initial procedure has been completed. Beginning additional procedure. 15:12:42 NOTE: This patient is undergoing an additional procedure while still in the Cardiac Cath La b. 15:12:43 Anesthesia remains at bedside and assumes care of patient. 15:12:49 2% CHLORHEXIDINE GLUCONATE WASH AND NASAL SWIPE DONE PRIOR TO PROCEDURE. 15:13:02 Bovie ground pad already in place to: right thigh. First Sponge And Instrument Count Done by Shahla Gill RN. 15:13:34 Hypo's: 6, Sponges: 40, Bovie/scratch: 2 Sutures: 11, Blades: 1, Instruments: 25, Syveck Patches: 1 verified by DB. 1 g ANCEF given in lab by Lucy, CIRCULATION LIBRARIAN via Peripheral IV. Ordered by Deanna Moy. Reaso n: As per physicians 15:14:35 verbal order. 15:19:34 Bilateral Upper Chest Prepped Times Two. Time Out. Correct patient, procedure, procedure equipment, site and side verified with physicia n present. Time 15:32:48 concurred by MD, individual staff and CIRCULATION LIBRARIAN. Time Out #2 - Consents verified, patient in correct position, all results are labled and displa yed, safety precautions 15:33:12 taken, antibiotics administered. Time out concurred by MD, individual staff and CIRCULATION LIBRARIAN in procedu re 15:33:40 Reference ECG taken 15:33:47 Case Start 50 mL 2% XYLOCAINE given in lab by Deanna Moy in Left upper chest via Subcutaneous. Ordere d by Farzaneh, 15:34:05 Deanna. 15:35:29 Surgical Incision Made. 15:42:50 A pocket was created at the L Upper Chest. 15:42:58 One antibiotic sponge put into the surgical pocket. 15:48:06 Inadvertent arterial stick- MD holding pressure. 15:49:36 Vascular access was obtained in the Subclav. Vein (Lft.) using micropuncture. 15:51:06 Vascular access was obtained in the Subclav. Vein (Lft.) using micropuncture. 15:55:39 A LEAD, SPRINT QUATTRO SECURE 55CM * was inserted and positioned in the RV. 15:58:06 Lead placement verified under fluoroscopy 15:59:09 The RV lead impedance and threshold being tested. 16:01:39 The RV lead was sutured to the fascia. 16:05:28 A LEAD, CAPSUREFIX NOVUS 45CM 45CM was inserted and positioned in the RA. 16:08:02 RA lead being repositioned. 16:09:03 Lead placement verified under fluoroscopy 16:13:09 The Atrial lead impedance and threshold is being tested. 16:19:21 Antibiotic sponge removed from the surgical pocket. 16:20:36 Pocket flushed with antibiotic solution. 40 mg Gentamicin in bowl w 250 0.9ns. 16:23:50 A DEFIBRILLATOR, EVERA MRI XT DR DDE-DDDR was connected and placed in the pocket. Second Sponge And Instrument Count Done by Beau Sanders, RT(R). 16:25:10 Hypo's: 6, Sponges: 40, Bovie/scratch: 2 Sutures: 11, Blades: 1, Instruments: 25, Syveck Patches: 1 verified by RW. 16:29:37 A 2 Joul DFT was performed. Synch 16:31:25 The DFT was Success at 20 Joules, 36 Ohms lead impedance and 4.4 ms charge time. 16:33:13 PACU called. Spoke to [place] 16:33:46 Bedside Report will be given. 16:50:30 The pocket was closed. 16:51:54 No case complications noted. 16:51:57 Cine recording checked. 16:53:07 Sterile dressing applied to site Final Sponge And Instrument Count Done by Beau Sanders RT(R). 16:54:01 Hypo's: 6, Sponges: 40 sponges, Bovie/scratch: 2 Sutures: 11, Blades: 1, Instruments: 25, Syveck Patches: 1 verified by MM. 16:54:30 Implantable Device card placed in patient's chart. 17:00:12 Sheaths removed; pressure applied to access sites by DB. 17:08:31 Case End Assessment: Final Case, HR=83 BPM, Rhythm=sr, FEHE=852/81 mmhg, Chest Pain=0, Edema=None, Color =Normal, Skin = Warm, Dry Right Pulses: Ashwin Ped=2, Radial=2 Left Pulses: Ashwin Ped=2, Radial=2 17:10:09 Lower Right Extremities: Color=Normal Lower Left Extremities: Color=Normal Neurological: State=Alert, Ox3, LOPEZ Respiration: Resp=16 B/min, SpO2=94 %, O2=4 lpm 17:14:54 Sterile dressing applied to right groin site 17:16:11 [facility] 17[facility]17[facility]26 A sling was placed on the affected arm. End Study - Contrast Media Used In Study Contrast Total Opened (mL) Total Used (mL) Total Wasted (mL) Unspecified 0 0 0 End Study - Radiation Exposure Fluoro Time (minutes) 6.7 End Study - Patient Disposition Complications Transferred To Interventional Outcome No Telemetry Bed successful
--- NOTE | 2017-05-08 17:50 | HHI.PR ---
Subjective Remarks patient is sp ICD placement. Denies cp/sob. Deneis cough. O2 sats noticed to be dropping Objective Vitals Vital Signs Date Time Temp Pulse Resp B/P (MAP) Pulse Ox O2 Delivery O2 Flow Rate FiO2 05/08/17 13:00 72 05/08/17 12:00 72 05/08/17 11:10 98.9 68 18 158/83 (108) 91 05/08/17 11:10 91 Room Air 05/08/17 11:00 79 05/08/17 10:00 76 05/08/17 09:35 97 Nasal Cannula 2.00 05/08/17 09:00 74 05/08/17 08:00 68 05/08/17 08:00 97 Nasal Cannula 2.00 05/08/17 08:00 97.4 72 17 133/72 (92) 97 05/08/17 07:00 75 05/08/17 06:04 81 05/08/17 05:00 71 05/08/17 04:00 72 05/08/17 03:00 98.2 71 16 146/76 (99) 97 05/08/17 03:00 68 05/08/17 03:00 97 Nasal Cannula 2.00 05/08/17 02:00 68 05/08/17 01:00 72 05/08/17 00:00 74 05/07/17 23:00 72 05/07/17 23:00 99.0 72 16 127/68 (87) 97 05/07/17 23:00 97 Nasal Cannula 2.00 05/07/17 22:00 78 05/07/17 21:00 78 05/07/17 20:05 97 Nasal Cannula 2.00 05/07/17 20:00 82 05/07/17 19:00 97 Nasal Cannula 2.00 05/07/17 19:00 82 05/07/17 19:00 98.8 78 16 138/76 (96) 97 05/07/17 18:35 98.1 84 18 151/84 (106) 96 05/07/17 18:00 84 I/O 05/07/17 05/07/17 05/07/17 05/08/17 05/08/17 05/08/17 07:00 15:00 23:00 07:00 15:00 23:00 Intake Total 100 ml 820 ml 460 ml Output Total 1000 ml 1100 ml 500 ml Balance -1000 ml 100 ml -280 ml -40 ml Intake Oral 720 ml 360 ml IV Total 100 ml 100 ml 100 ml Output Urine Total 1000 ml 1100 ml 500 ml # Bowel Movements 0 Result Diagram: 05/07/17 0510 05/08/17 0557 Imaging Last Impressions Chest X-Ray 05/07/17 0500 Signed Impressions: Service Date/Time: Sunday, May 07, 2017 05:12 - CONCLUSION: Right medial base consolidation which appears to be improving. There is some persistent prominence of the right hilar region. Jordon Baptiste MD Abdomen X-Ray 05/05/17 0000 Signed Impressions: Service Date/Time: Friday, May 05, 2017 19:41 - CONCLUSION: 1. No acute findings. Erik Javed MD Head CT 05/02/17 0000 Signed Impressions: Service Date/Time: Tuesday, May 02, 2017 19:04 - CONCLUSION: 1. No acute intracranial abnormalities. Erik Javed MD Objective Remarks GENERAL: Extubated 05/06, responsive. SKIN: dry, no rash. HEAD: Atraumatic. Normocephalic. EYES: Pupils equal and round. Pupils 2 mm bilateral and reactive. ENT: No nasal bleeding or discharge. NECK: Trachea midline. Airway widely patent. CARDIOVASCULAR: Regular RR, NL S1S2. No JVD. ICD site covered C/D/I. RESPIRATORY: Bilateral breath sounds, clear. Strong cough effort. GASTROINTESTINAL: Abdomen soft, non-tender, nondistended. BS active. MUSCULOSKELETAL: No obvious deformities. No clubbing. No cyanosis. No edema. Well perfused. Left arm on sling. NEUROLOGICAL: Eyes open, follows commands. Moves 4 limbs with 5/5 strength. O X 3. Medications and IVs Current Medications Medications (Trade) Dose Ordered Sig/Dana Route Start Time Stop Time Status Last Admin (NS Flush) 2 ml UNSCH PRN IV FLUSH 05/02/17 19:30 (NS Flush) 2 ml BID IV FLUSH 05/02/17 21:00 05/08/17 09:19 (Tylenol) 650 mg Q6H PRN PO 05/02/17 19:30 (Pepcid Inj) 20 mg Q12HR IV PUSH 05/02/17 21:00 05/08/17 09:22 (Tears Naturale Opth Soln) 1 drop TID EACH EYE 05/03/17 09:00 05/07/17 13:24 (Duoneb Neb) 1 ampule Q2HR NEB PRN INH 05/02/17 19:30 05/04/17 12:42 Miscellaneous Information 1 Q361D XX 05/02/17 19:30 (Chlorhexidine 2% Cloth) Taper DAILY@04 TOP 05/03/17 04:00 04/29/18 03:59 (Chlorhexidine 2% Cloth) 3 pack UNSCH PRN TOP 05/02/17 19:30 (Senia-Colace) 1 tab BID PO 05/02/17 21:00 05/08/17 09:17 (Milk Of Magnesia Liq) 30 ml Q12H PRN PO 05/02/17 19:30 (Senokot) 17.2 mg Q12H PRN PO 05/02/17 19:30 (Dulcolax Supp) 10 mg DAILY PRN RECTAL 05/02/17 19:30 (Lactulose Liq) 30 ml DAILY PRN PO 05/02/17 19:30 (Peridex 0.12% Liq) 15 ml BID@08,20 MT 05/02/17 20:00 05/06/17 08:00 Propofol 100 ml @ 2.139 mls/ hr TITRATE PRN IV 05/02/17 22:30 05/05/17 14:05 Miscellaneous Information D/C ICU ELECTROLYTE ORDERS... UNSCH PRN .XX 05/03/17 00:30 Miscellaneous Information ICU - CALL ORDERING PHYSIC... UNSCH PRN .XX 05/03/17 00:30 Potassium Chloride 100 ml @ 25 mls/hr UNSCH PRN IV 05/03/17 00:30 05/04/17 23:28 (K-Lyte Cl Eff) 50 meq UNSCH PRN PO 05/03/17 00:30 Potassium Chloride 100 ml @ 50 mls/hr UNSCH PRN IV 05/03/17 00:30 05/05/17 20:25 Magnesium Sulfate 4 gm/Sodium Chloride 108 ml @ 54 mls/hr UNSCH PRN IV 05/03/17 00:30 Magnesium Sulfate 2 gm/Sodium Chloride 104 ml @ 52 mls/hr UNSCH PRN IV 05/03/17 00:30 (Mag-Ox) 800 mg UNSCH PRN PO 05/03/17 00:30 Sodium Phosphate 30 mmol/Sodium Chloride 260 ml @ 43.333 mls/ hr UNSCH PRN IV 05/03/17 00:30 05/03/17 06:31 (K-Phos) 2,000 mg UNSCH PRN PO 05/03/17 00:30 Potassium Phosphate 30 mmol/ Sodium Chloride 260 ml @ 43.333 mls/ hr UNSCH PRN IV 05/03/17 00:30 Sodium Chloride 1,000 ml @ 10 mls/hr Q24H IV 05/04/17 10:15 05/06/17 09:38 (Trandate Inj) 20 mg Q4H PRN IV PUSH 05/04/17 10:30 05/06/17 08:50 (Morphine Inj) 2 mg Q2H PRN IV PUSH 05/04/17 16:30 05/06/17 08:35 (Lovenox Inj) 40 mg Q24H SQ 05/05/17 19:00 Future Hold 05/06/17 20:40 Piperacillin Sod/ Tazobactam Sod 100 ml @ 200 mls/hr Q6H IV 05/05/17 16:00 05/08/17 16:00 Levofloxacin/ Dextrose 150 ml @ 100 mls/hr Q24H IV 05/05/17 15:00 05/06/17 14:29 (Zofran Inj) 4 mg Q6H PRN IV PUSH 05/05/17 17:45 05/05/17 17:56 (Lopressor) 25 mg Q12HR PO 05/07/17 13:00 05/08/17 09:17 (Ecotrin Ec) 81 mg DAILY PO 05/07/17 17:30 05/08/17 09:18 (Prinivil) 5 mg DAILY PO 05/08/17 09:00 05/08/17 09:17 Cefazolin Sodium/ Dextrose 50 ml @ 100 mls/hr Q8H IV 05/08/17 23:00 05/09/17 15:29 Vancomycin HCl 1000 mg/Sodium Chloride 250 ml @ 250 mls/hr ONCE ONCE IV 05/09/17 03:00 05/09/17 03:59 Miscellaneous Information ALL NURSING DEPARTME... UNSCH PRN .XX 05/08/17 19:15 05/09/17 19:14 A/P Assessment and Plan Anoxic encephalopathy -CT brain 05/02 negative. - EEG - by hemisphere slowing. No epileptiform features. - D/c versed, fentanyl, propofol. - Watch for seizures. - Resolved. Acute Respiratory failure - resolved - Intubated for airway protection, posteriorly extubated - DuoNeb scheduled and when necessary - Extubated 05/06, parameters acceptable. Follow right infiltrate -> resolving. Cardiac arrest - V. fib arrest - Therapeutic hypothermia protocol completed. 05/08 sp cath and EP study. Cardiology following. Repeat CXR shows defect and PTX cannot be ruled out. Ordered repeat CXR in expiration and erect position. discussed with Dr Moy. . HTN - 2-D echo 05/04 - Echo with EF 60-65%. No definite wall motion abnormalities. - Metoprolol 12.5 mg po bid for HTN per Cardiology - Troponin elevation mild 0.41. - EKG c/w old inferior lateral CT. Acute kidney injury (resolved) - Creatinine normalized with IV fluid hydration. KVO IVF and may diurese some to facilitate weaning. - Strict I's and O's - Electrolyte replacement per ICU protocol GI/liver: - Swallow eval ID Acute aspiration pneumonia Fever Leukocytosis Send blood cultures, U/a and urine culture, CXR, repeat sputum culture. Followed up CXR which showed RLL infiltrate, will initiate Zosyn 4.5 IV q6 hours and Levaquin 750 mg IV q24 hours. 05/08 DC Levaquin - continue IV Zosyn Endocrine Acute stress hyperglycemia (resolved) -Euglycemic, not requiring insulin coverage DVT GI prophylaxis - Teds SCDs - Changed to Lovenox 40 mg subcutaneous daily - Pepcid 20 mg IV q12 hours. ACCESS: Left femoral heat exchange catheter placed 05/03 #3. Removed 05/04 Radial art line 05/03 has been removed. Tani Lozano MD May 08, 2017 17:50
--- NOTE | 2017-05-08 19:05 | RADRPT ---
EXAM DATE/TIME: 05/08/2017 17:48 [facility] COMPARISON: CHEST SINGLE AP, May 07, 2017, 5:12. INDICATIONS : Evaluate for pneumothorax post pacemaker. MEDICAL HISTORY : None. SURGICAL HISTORY : None. ENCOUNTER: Initial ACUITY: 1 day PAIN SCORE: 0/10 LOCATION: Bilateral chest FINDINGS: Interval placement of a cardiac pacer with leads projected in right atrium and right ventricle. No e vidence of apical pneumothorax. There is a vertical linear interface seen to the left in the thoraci c spine which is of uncertain significance; an anterior pneumothorax could have this appearance, but so could a skinfold. There is indistinctness and fullness in the perihilar region bilaterally. Mild elevation of the right hemidiaphragm. The heart is normal in size. There is some opacity in the up per lateral left chest which could represent pleural effusion or focal pleural thickening. CONCLUSION: 1. No evidence of apical pneumothorax, but there is an interface in the left paraspinal region at the T4 and T5 level, of uncertain significance. Can not exclude an anterior pneumothorax. Recommend re peat exam in expiration and in erect position.. 2. Bilateral central infiltrates may represent pulmonary edema. 3. Focal opacity projecting over the upper lateral left chest may be related to pleural effusion or e xtrinsic soft tissue thickening. Sidney Nguyen MD on May 08, 2017 at 18:59 Board Certified Radiologist. This report was verified electronically.
[2017-05-08] MEDS ORDERED: DO NOT ADM ANY ANTICOAGULANT DRUGS PRN (19:15)
--- NOTE | 2017-05-08 21:30 | RADRPT ---
EXAM DATE/TIME: 05/08/2017 21:09 [facility] COMPARISON: CHEST SINGLE AP, May 08, 2017, 17:48. INDICATIONS : Post pacemaker, rule out pneumothorax. MEDICAL HISTORY : None. SURGICAL HISTORY : None. ENCOUNTER: Subsequent ACUITY: 3 days PAIN SCORE: 0/10 LOCATION: Bilateral chest FINDINGS: Upright expiratory view of the chest was performed. There is no evidence of pneumothorax. Patchy ar eas of opacity in the central lungs bilaterally similar to prior. Cardiac pacer leads stable positio n. CONCLUSION: No evidence of pneumothorax on this upright expiratory view of the chest. Sidney Nguyen MD on May 08, 2017 at 21:27 Board Certified Radiologist. This report was verified electronically.
--- NOTE | 2017-05-08 22:19 | MA ---
cc: DEANNA MCINTYRE DATE 05/08/2017 INDICATION Ventricular fibrillation arrest. PROCEDURE PERFORMED 1. Retrograde left heart catheterization with left ventriculography and selective coronary angiography. 2. Moderate sedation. ACCESS SITE Right femoral artery. EQUIPMENT USED 5 Ivorian pigtail catheter, 5 Ivorian JL4 and AR modified coronary artery catheters. MEDICATIONS 1. Versed IV. 2. Fentanyl IV. CONTRAST Omnipaque 100 cc. COMPLICATIONS None. BLOOD LOSS Less than 10 cc. METHOD OF HEMOSTASIS Manual compression. RESULTS HEMODYNAMICS Heart rate 80 beats per minute. Left ventricular end-diastolic pressure 8 mmHg. Left ventricle 135/8. Aorta 135/68/97. LEFT VENTRICULOGRAPHY Ejection fraction 40%. Wall motion inferior akinesis, no mitral regurgitation. CORONARY ANGIOGRAPHY Left main coronary artery has 20% ostial stenosis. Left anterior descending artery has 30% and 40% sequential stenosis in the mid portion. The first diagonal artery is small, patent. The second diagonal artery moderate size with 60% ostial stenosis. The third diagonal artery has 30% ostial stenosis. Left circumflex artery patent. OM-1 patent. Right coronary artery is a dominant vessel with 30% stenosis in the proximal portion with double lumen consistent with healed dissection. There is 30% stenosis in the mid portion of the vessel as well. There is LIA III flow through the vessel. PDA patent, PLV patent. DIAGNOSES 1. Elcs-am-pwugijam multivessel coronary artery disease. 2. 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 DISPOSITION Ms. Soares was found to have evidence of mild to moderate coronary artery disease and moderate left ventricular dysfunction with inferior akinesis consistent with an old inferior wall myocardial function. She recently suffered ventricle fibrillation arrest. We will proceed with electrophysiology study and placement of implantable defibrillator tomorrow for her further management. Deanna Mcintyre MD OYolanda/KK /5:19 PM /9:56 PM
[2017-05-08] MEDS ORDERED: FUROSEMIDE 20 MG/2 ML VIAL IV PUSH ONE (23:00)
[2017-05-09] VITALS (24 sets, daily range): BP systolic 137–178; BP diastolic 67–84; PULSE 58–88; RESP 18–20; TEMP 97.8–98.6; O2SAT 93–97
[2017-05-09] MEDS: ceFAZolin 2 GM PREMIX 50 ML IV SCH ×3 (01:21→15:46)
[2017-05-09] MEDS ORDERED: VANCOMYCIN INJ 1,000 MG in SODIUM CHLOR 0.9% 250 ML INJ 250 ML IV ONE (03:00)
[2017-05-09] MEDS: CHLORHEXIDINE GLUCONATE 2 % 1 PACK (2 CLOTHS) TOP SCH (04:00)
[2017-05-09] MEDS: PIPERACIL-TAZO 4.5 GM PREMIX 100 ML IV SCH ×2 (06:39→10:12)
[2017-05-09 06:52] LABS: AUTOMATED NEUTROPHIL # 4.8 TH/MM3 (1.8-7.7); BASOPHIL # 0.1 TH/MM3 (0-0.2); BASOPHIL % 0.6 % (0.0-2.0); EOSINOPHIL # 0.1 TH/MM3 (0-0.4); EOSINOPHIL % 1.8 % (0.0-4.0); HEMATOCRIT 26.5 % (35.0-46.0); LYMPH % 24.1 % (9.0-44.0); MEAN CELL VOLUME 89.3 FL (80.0-100.0); MEAN CORPUSCULAR HEMOGLOBIN 30.7 PG (27.0-34.0); MEAN CORPUSCULAR HGB CONC 34.4 % (32.0-36.0); MONO % 14.5 % (0.0-8.0); PLATELET COUNT 178 TH/MM3 (150-450); RED BLOOD COUNT 2.97 MIL/MM3 (4.00-5.30); RED CELL DISTRIBUTION WIDTH 13.4 % (11.6-17.2); WHITE BLOOD COUNT 8.1 TH/MM3 (4.0-11.0)
[2017-05-09 06:57] LABS: HEMO FLAGS AUTO DIFF
--- NOTE | 2017-05-09 07:17 | MR ---
cc: BLAINE MCINTYRE DATE 05/08/2017 INDICATION Ventricular fibrillation arrest, coronary artery disease, ischemic cardiomyopathy, EF 40%, inferior akinesis. PROCEDURE PERFORMED 1. Comprehensive electrophysiology study with right atrial and right ventricular pacing and sensing. 2. Coronary sinus cannulation with coronary sinus pacing and sensing. ACCESS SITE Right femoral vein. EQUIPMENT USED Quadripolar catheters x3. COMPLICATIONS None. ESTIMATED BLOOD LOSS Less than 10 cc. METHOD OF HEMOSTASIS Sheath left in place. RESULTS 1. Baseline EKG: Sinus bradycardia, inferior wall infarct, interventricular conduction delay. 2. Baseline intervals (milliseconds): Cycle length 696 milliseconds, NY 144, QRS 116, QT 378, QTC 453, AH 92, HV 56. 3. Coronary sinus stimulation: Coronary sinus stimulation was performed at baseline. No arrhythmias were induced. 4. Right atrial programmed stimulation: Right atrial programmed stimulation was performed at baseline. AV Wenckebach was 320 milliseconds. RARP 600/260/290. No arrhythmias were induced. 5. Right ventricular programmed stimulation: Right ventricular programmed stimulation was performed at baseline. RVRP 600/260/290. Closest coupling intervals 600/290/180. 290/210/180. 6. Arrhythmias induced: Sustained monomorphic ventricular tachycardia was induced at baseline. Cycle length 240 milliseconds, indeterminate axis, right bundle branch block. Induction RVPES. Termination 200 joules biphasic shock. DIAGNOSIS 1. Sustained monomorphic ventricular tachycardia inducible at baseline. 2. HV interval 56 milliseconds. DISPOSITION Ms. Rodger will undergo placement of a dual-chamber implantable defibrillator. MD AZALEA Arechiga/JORGE L /3:01 PM /6:51 AM
[2017-05-09 07:22] LABS: ANION GAP 9 MEQ/L (5-15); AST (GOT) 21 U/L (15-37); BICARBONATE 28.8 MEQ/L (21.0-32.0); BLOOD UREA NITROGEN 11 MG/DL (7-18); CHLORIDE 104 MEQ/L (98-107); GLOMERULAR FILTRATION RATE 106 ML/MIN (>89); MAGNESIUM 1.9 MG/DL (1.5-2.5); SODIUM (NA) 142 MEQ/L (136-145)
[2017-05-09 07:29] LABS: ALKALINE PHOSPHATASE 89 U/L (45-117); ALT (GPT) 34 U/L (10-53); TOTAL BILIRUBIN ADULT 0.6 MG/DL (0.2-1.0)
[2017-05-09] MEDS: CHLORHEXIDINE 0.12% (ORAL KIT) 15 ML CUP MT SCH (07:33)
[2017-05-09 07:36] LABS: POTASSIUM 2.8 MEQ/L (3.5-5.1)
[2017-05-09 07:51] LABS: BANDS 6 % (0-6); METAMYELOCYTES 3 % (0-1); MYELOCYTES 4 % (0-0); NEUTROPHIL # MANUAL DIFF 5.2 TH/MM3 (1.8-7.7); PLATELET ESTIMATE SMEAR NORMAL (NORMAL); POLYS (SEG NEUTROPHILS) 51 % (16-70); WBC DIFF SAMPLE 100
[2017-05-09 07:52] LABS: PLATELET MORPHOLOGY NORMAL (NORMAL); SCAN/DIFF FINAL DIFF MANUAL
--- NOTE | 2017-05-09 08:05 | MR ---
cc: DEANNA MCINTYRE MD DATE 05/08/2017 INDICATION Ventricular fibrillation arrest, secondary prevention, ejection fraction 40% on cardiac catheterization 05/07/2017 with inferior wall motion abnormality. The patient is on maximum tolerated guideline-directed medical therapy. Atrial lead placed for tachycardia discrimination. PROCEDURE PERFORMED 1. Placement of Medtronic MRI compatible dual-chamber defibrillator. 2. Testing of Medtronic defibrillator system. ACCESS SITE Left subclavian vein. EQUIPMENT USED Generator: Medtronic Truzipa MRI XT VR SureScan dual-chamber defibrillator, serial number [id number]. Right atrial lead: Medtronic model 5076-45 cm screw-in atrial lead, serial number [id number]. Right ventricle lead: Medtronic model 6947M-55 cm screw-in ventricular lead, serial number [id number]. LEAD TESTING Right atrial lead: P-wave 1.4 millivolts. Lead impedance 890 ohms. Pacing threshold 0.8 volts at 0.5 milliseconds. Pacing at 10 volts. No diaphragmatic stimulation. Right ventricle lead: R-wave 7.7 millivolts. Lead impedance 774 ohms. Pacing threshold 0.7 volts at 0.5 milliseconds. Pacing at 10 volts. No diaphragmatic stimulation. Ventricular fibrillation was induced on one occasion and terminated with a single 20 joule shock. Parametric mode: AAI/DDD, lower rate 50, upper rate 130. VF 222 BPM, PRODUCTION QUALITY ANALYST 182 BPM, prepare settings. DIAGNOSIS 1. Successful placement of Medtronic dual-chamber defibrillator. 2. Successful testing of Medtronic dual-chamber defibrillator system. 3. Defibrillation threshold of 20 joules or less. DISPOSITION Ms. Soares will be monitored on telemetry after the procedure. Will continue perioperative antibiotics. Will continue therapy for congestive heart failure. Will also continue aggressive modification of cardiac risk factors. She will be seen back for follow-up in our office after discharge. Will initiate long-term monitoring of her device. Deanna Mcintyre MD OQ/BT /4:41 PM /7:31 AM
[2017-05-09] MEDS: METOPROLOL TARTRATE 25 MG TAB PO SCH ×2 (08:47→21:56)
[2017-05-09] MEDS: DOCUSATE SODIUM 50 MG/SENNA 8.6 MG TAB PO SCH ×2 (08:48→21:00)
[2017-05-09] MEDS: LISINOPRIL 5 MG TAB PO SCH (08:48)
[2017-05-09] MEDS: SODIUM CHLORIDE 0.9% FLUSH 10 ML FLUSH IV FLUSH SCH ×2 (08:50→21:56)
[2017-05-09] MEDS: FAMOTIDINE 20 MG/2 ML VIAL IV PUSH SCH ×2 (08:50→21:55)
[2017-05-09] MEDS: ASPIRIN EC 81 MG TABEC PO SCH (08:51)
[2017-05-09] MEDS: FUROSEMIDE 20 MG TAB PO SCH ×2 (08:54→16:57)
[2017-05-09] MEDS: ARTIFICIAL TEARS OPTH SOLN 15 ML BTL EACH EYE SCH ×3 (09:00→16:52)
[2017-05-09] MEDS: SODIUM CHLOR 0.45% 1000 ML INJ 1,000 ML IV SCH (10:04)
[2017-05-09] MEDS: POTASSIUM CHLORIDE 20 MEQ CONTROLLED RELEASE TAB PO SCH ×2 (10:13→11:07)
--- NOTE | 2017-05-09 13:50 | PD.CARD.PN ---
Subjective Subjective Remarks No CP or SOB, feels fine Objective Medications Current Medications Medications (Trade) Dose Ordered Sig/Dana Route Start Time Stop Time Status Last Admin (NS Flush) 2 ml UNSCH PRN IV FLUSH 05/02/17 19:30 (NS Flush) 2 ml BID IV FLUSH 05/02/17 21:00 05/09/17 08:50 (Tylenol) 650 mg Q6H PRN PO 05/02/17 19:30 (Pepcid Inj) 20 mg Q12HR IV PUSH 05/02/17 21:00 05/09/17 08:50 (Tears Naturale Opth Soln) 1 drop TID EACH EYE 05/03/17 09:00 05/09/17 12:45 (Duoneb Neb) 1 ampule Q2HR NEB PRN INH 05/02/17 19:30 05/04/17 12:42 Miscellaneous Information 1 Q361D XX 05/02/17 19:30 (Chlorhexidine 2% Cloth) Taper DAILY@04 TOP 05/03/17 04:00 04/29/18 03:59 (Chlorhexidine 2% Cloth) 3 pack UNSCH PRN TOP 05/02/17 19:30 (Senia-Colace) 1 tab BID PO 05/02/17 21:00 05/08/17 09:17 (Milk Of Magnesia Liq) 30 ml Q12H PRN PO 05/02/17 19:30 (Senokot) 17.2 mg Q12H PRN PO 05/02/17 19:30 (Dulcolax Supp) 10 mg DAILY PRN RECTAL 05/02/17 19:30 (Lactulose Liq) 30 ml DAILY PRN PO 05/02/17 19:30 (Peridex 0.12% Liq) 15 ml BID@08,20 MT 05/02/17 20:00 05/06/17 08:00 Propofol 100 ml @ 2.139 mls/ hr TITRATE PRN IV 05/02/17 22:30 05/05/17 14:05 Miscellaneous Information D/C ICU ELECTROLYTE ORDERS... UNSCH PRN .XX 05/03/17 00:30 Miscellaneous Information ICU - CALL ORDERING PHYSIC... UNSCH PRN .XX 05/03/17 00:30 Potassium Chloride 100 ml @ 25 mls/hr UNSCH PRN IV 05/03/17 00:30 05/04/17 23:28 (K-Lyte Cl Eff) 50 meq UNSCH PRN PO 05/03/17 00:30 Potassium Chloride 100 ml @ 50 mls/hr UNSCH PRN IV 05/03/17 00:30 05/05/17 20:25 Magnesium Sulfate 4 gm/Sodium Chloride 108 ml @ 54 mls/hr UNSCH PRN IV 05/03/17 00:30 Magnesium Sulfate 2 gm/Sodium Chloride 104 ml @ 52 mls/hr UNSCH PRN IV 05/03/17 00:30 (Mag-Ox) 800 mg UNSCH PRN PO 05/03/17 00:30 Sodium Phosphate 30 mmol/Sodium Chloride 260 ml @ 43.333 mls/ hr UNSCH PRN IV 05/03/17 00:30 05/03/17 06:31 (K-Phos) 2,000 mg UNSCH PRN PO 05/03/17 00:30 Potassium Phosphate 30 mmol/ Sodium Chloride 260 ml @ 43.333 mls/ hr UNSCH PRN IV 05/03/17 00:30 Sodium Chloride 1,000 ml @ 10 mls/hr Q24H IV 05/04/17 10:15 05/06/17 09:38 (Trandate Inj) 20 mg Q4H PRN IV PUSH 05/04/17 10:30 05/06/17 08:50 (Morphine Inj) 2 mg Q2H PRN IV PUSH 05/04/17 16:30 05/06/17 08:35 (Lovenox Inj) 40 mg Q24H SQ 05/05/17 19:00 Future Hold 05/06/17 20:40 Piperacillin Sod/ Tazobactam Sod 100 ml @ 200 mls/hr Q6H IV 05/05/17 16:00 05/09/17 10:12 (Zofran Inj) 4 mg Q6H PRN IV PUSH 05/05/17 17:45 05/05/17 17:56 (Lopressor) 25 mg Q12HR PO 05/07/17 13:00 05/09/17 08:47 (Ecotrin Ec) 81 mg DAILY PO 05/07/17 17:30 05/09/17 08:51 (Prinivil) 5 mg DAILY PO 05/08/17 09:00 05/09/17 08:48 Cefazolin Sodium/ Dextrose 50 ml @ 100 mls/hr Q8H IV 05/08/17 23:00 05/09/17 15:29 05/09/17 07:31 Miscellaneous Information ALL NURSING DEPARTME... UNSCH PRN .XX 05/08/17 19:15 05/09/17 19:14 (Lasix) 20 mg BID@09,18 PO 05/09/17 09:00 05/09/17 08:54 Vital Signs / I&O Vital Signs Date Time Temp Pulse Resp B/P (MAP) Pulse Ox O2 Delivery O2 Flow Rate FiO2 05/09/17 12:45 140/77 (98) 05/09/17 12:00 78 05/09/17 11:00 98.6 61 19 178/83 (114) 94 05/09/17 11:00 94 Room Air 05/09/17 11:00 76 05/09/17 10:00 68 05/09/17 09:00 78 05/09/17 09:00 96 21 05/09/17 08:00 80 05/09/17 07:30 95 Nasal Cannula 2.00 05/09/17 07:17 97.8 77 20 160/84 (109) 96 05/09/17 07:00 80 05/09/17 06:00 74 05/09/17 05:00 78 05/09/17 04:48 76 05/09/17 04:15 97.9 76 18 160/67 (98) 97 05/09/17 03:20 97 Nasal Cannula 2.00 05/09/17 03:00 73 05/09/17 02:00 73 05/09/17 01:00 74 05/09/17 00:00 97 Nasal Cannula 2.00 05/09/17 00:00 72 05/08/17 23:30 98.4 74 18 160/80 (106) 97 05/08/17 23:00 72 05/08/17 22:00 78 05/08/17 21:24 95 Nasal Cannula 2.00 05/08/17 21:00 93 18 181/103 (129) 95 05/08/17 21:00 88 05/08/17 20:00 97 Nasal Cannula 2.00 05/08/17 20:00 78 20 161/80 (107) 96 05/08/17 20:00 80 05/08/17 19:00 83 05/08/17 19:00 98.7 85 20 164/80 (108) 97 05/08/17 18:46 92 Nasal Cannula 2.00 05/08/17 18:46 98.0 81 18 165/76 (105) 92 05/08/17 18:30 97.9 79 17 148/71 (96) 94 Room Air 05/08/17 18:15 77 17 140/78 (98) 94 Room Air 05/08/17 18:00 78 17 145/87 (106) 94 Room Air 05/08/17 17:45 79 17 142/81 (101) 98 Nasal Cannula 2 05/08/17 17:30 97.9 79 17 140/75 (96) 98 Nasal Cannula 2 I/O 05/08/17 05/08/17 05/08/17 05/09/17 05/09/17 05/09/17 07:00 15:00 23:00 07:00 15:00 23:00 Intake Total 460 ml 1200 ml 638 ml Output Total 500 ml 1460 ml 1350 ml Balance -40 ml -260 ml -712 ml Intake Oral 360 ml 240 ml IV Total 100 ml 398 ml Other 1200 ml Output Urine Total 500 ml 1450 ml 1350 ml Estimated Blood Loss 10 ml # Bowel Movements 1 Physical Exam GENERAL: In NAD SKIN: Warm and dry. HEAD: Normocephalic. EYES: No scleral icterus. No injection or drainage. NECK: Supple, trachea midline. No JVD or lymphadenopathy. CARDIOVASCULAR: Regular rate and rhythm without murmurs, gallops, or rubs. RESPIRATORY: Breath sounds equal bilaterally. No accessory muscle use. GASTROINTESTINAL: Abdomen soft, non-tender, nondistended. MUSCULOSKELETAL: No cyanosis, or edema. ICD wound stable Laboratory Laboratory Tests Test 05/09/17 06:33 White Blood Count 8.1 TH/MM3 Red Blood Count 2.97 MIL/MM3 Hemoglobin 9.1 GM/DL Hematocrit 26.5 % Mean Corpuscular Volume 89.3 FL Mean Corpuscular Hemoglobin 30.7 PG Mean Corpuscular Hemoglobin Concent 34.4 % Red Cell Distribution Width 13.4 % Platelet Count 178 TH/MM3 Mean Platelet Volume 8.0 FL Neutrophils (%) (Auto) 59.0 % Lymphocytes (%) (Auto) 24.1 % Monocytes (%) (Auto) 14.5 % Eosinophils (%) (Auto) 1.8 % Basophils (%) (Auto) 0.6 % Neutrophils # (Auto) 4.8 TH/MM3 Lymphocytes # (Auto) 2.0 TH/MM3 Monocytes # (Auto) 1.2 TH/MM3 Eosinophils # (Auto) 0.1 TH/MM3 Basophils # (Auto) 0.1 TH/MM3 CBC Comment AUTO DIFF Differential Total Cells Counted 100 Neutrophils % (Manual) 51 % Band Neutrophils % 6 % Lymphocytes % 28 % Monocytes % 8 % Neutrophils # (Manual) 5.2 TH/MM3 Metamyelocytes 3 % Myelocytes 4 % Differential Comment FINAL DIFF MANUAL Platelet Estimate NORMAL Platelet Morphology Comment NORMAL Blood Urea Nitrogen 11 MG/DL Creatinine 0.56 MG/DL Random Glucose 79 MG/DL Total Protein 5.9 GM/DL Albumin 2.5 GM/DL Calcium Level 8.0 MG/DL Phosphorus Level 3.0 MG/DL Magnesium Level 1.9 MG/DL Alkaline Phosphatase 89 U/L Aspartate Amino Transf (AST/SGOT) 21 U/L Alanine Aminotransferase (ALT/SGPT) 34 U/L Total Bilirubin 0.6 MG/DL Sodium Level 142 MEQ/L Potassium Level 2.8 MEQ/L Chloride Level 104 MEQ/L Carbon Dioxide Level 28.8 MEQ/L Anion Gap 9 MEQ/L Estimat Glomerular Filtration Rate 106 ML/MIN Assessment and Plan Problem List: (1) Ventricular fibrillation ICD Codes: I49.01 - Ventricular fibrillation Status: Acute (2) CAD (coronary artery disease) ICD Codes: I25.10 - Atherosclerotic heart disease of [place] coronary artery without angina pectoris (3) Hyperlipidemia ICD Codes: E78.5 - Hyperlipidemia, unspecified (4) HTN (hypertension) ICD Codes: I10 - Essential (primary) hypertension Assessment and Plan Stable from cardiac standpoint. No significant arrhythmias. EPS with inducible sustained VT. ICD placed. Wound stable, ICD interrogation with normal device function. OK to discharge from cardiac standpoint. Will schedule f/u with me as outpatient. Deanna Moy MD May 09, 2017 13:50
[2017-05-09] MEDS ORDERED: PILL SPLITTER OTHER PRN (14:00)
[2017-05-09] MEDS ORDERED: LISINOPRIL 5 MG TAB PO ONE (14:00)
[2017-05-09] MEDS: amLODIPine BESYLATE 5 MG TAB PO SCH (14:00)
--- NOTE | 2017-05-09 14:09 | HHI.PR ---
Subjective Remarks Discussed case with RN RN states patient is having diarrhea. Patient states has had 4 episodes of diarrhea, denies fevers, chills, abdominal pain, nausea or vomiting. Denies cp/sob Objective Vitals Vital Signs Date Time Temp Pulse Resp B/P (MAP) Pulse Ox O2 Delivery O2 Flow Rate FiO2 05/09/17 12:45 140/77 (98) 05/09/17 12:00 78 05/09/17 11:00 98.6 61 19 178/83 (114) 94 05/09/17 11:00 94 Room Air 05/09/17 11:00 76 05/09/17 10:00 68 05/09/17 09:00 78 05/09/17 09:00 96 21 05/09/17 08:00 80 05/09/17 07:30 95 Nasal Cannula 2.00 05/09/17 07:17 97.8 77 20 160/84 (109) 96 05/09/17 07:00 80 05/09/17 06:00 74 05/09/17 05:00 78 05/09/17 04:48 76 05/09/17 04:15 97.9 76 18 160/67 (98) 97 05/09/17 03:20 97 Nasal Cannula 2.00 05/09/17 03:00 73 05/09/17 02:00 73 05/09/17 01:00 74 05/09/17 00:00 97 Nasal Cannula 2.00 05/09/17 00:00 72 05/08/17 23:30 98.4 74 18 160/80 (106) 97 05/08/17 23:00 72 05/08/17 22:00 78 05/08/17 21:24 95 Nasal Cannula 2.00 05/08/17 21:00 93 18 181/103 (129) 95 05/08/17 21:00 88 05/08/17 20:00 97 Nasal Cannula 2.00 05/08/17 20:00 78 20 161/80 (107) 96 05/08/17 20:00 80 05/08/17 19:00 83 05/08/17 19:00 98.7 85 20 164/80 (108) 97 05/08/17 18:46 92 Nasal Cannula 2.00 05/08/17 18:46 98.0 81 18 165/76 (105) 92 05/08/17 18:30 97.9 79 17 148/71 (96) 94 Room Air 05/08/17 18:15 77 17 140/78 (98) 94 Room Air 05/08/17 18:00 78 17 145/87 (106) 94 Room Air 05/08/17 17:45 79 17 142/81 (101) 98 Nasal Cannula 2 05/08/17 17:30 97.9 79 17 140/75 (96) 98 Nasal Cannula 2 I/O 05/08/17 05/08/17 05/08/17 05/09/17 05/09/17 05/09/17 07:00 15:00 23:00 07:00 15:00 23:00 Intake Total 460 ml 1200 ml 638 ml Output Total 500 ml 1460 ml 1350 ml Balance -40 ml -260 ml -712 ml Intake Oral 360 ml 240 ml IV Total 100 ml 398 ml Other 1200 ml Output Urine Total 500 ml 1450 ml 1350 ml Estimated Blood Loss 10 ml # Bowel Movements 1 Result Diagram: 05/09/17 0633 05/09/17 0633 Imaging Last Impressions Chest X-Ray 05/08/17 0000 Signed Impressions: Service Date/Time: Monday, May 08, 2017 21:09 - CONCLUSION: No evidence of pneumothorax on this upright expiratory view of the chest. Sidney Nguyen MD Abdomen X-Ray 05/05/17 0000 Signed Impressions: Service Date/Time: Friday, May 05, 2017 19:41 - CONCLUSION: 1. No acute findings. Erik Javed MD Head CT 05/02/17 0000 Signed Impressions: Service Date/Time: Tuesday, May 02, 2017 19:04 - CONCLUSION: 1. No acute intracranial abnormalities. Erik Javed MD Objective Remarks GENERAL: Extubated 05/06, responsive. SKIN: dry, no rash. HEAD: Atraumatic. Normocephalic. EYES: Pupils equal and round. Pupils 2 mm bilateral and reactive. ENT: No nasal bleeding or discharge. NECK: Trachea midline. Airway widely patent. CARDIOVASCULAR: Regular RR, NL S1S2. No JVD. ICD site covered C/D/I. RESPIRATORY: Bilateral breath sounds, clear. Strong cough effort. GASTROINTESTINAL: Abdomen soft, non-tender, nondistended. BS active. MUSCULOSKELETAL: No obvious deformities. No clubbing. No cyanosis. No edema. Well perfused. Left arm on sling. NEUROLOGICAL: Eyes open, follows commands. Moves 4 limbs with 5/5 strength. O X 3. Medications and IVs Current Medications Medications (Trade) Dose Ordered Sig/Dana Route Start Time Stop Time Status Last Admin (NS Flush) 2 ml UNSCH PRN IV FLUSH 05/02/17 19:30 (NS Flush) 2 ml BID IV FLUSH 05/02/17 21:00 05/09/17 08:50 (Tylenol) 650 mg Q6H PRN PO 05/02/17 19:30 (Pepcid Inj) 20 mg Q12HR IV PUSH 05/02/17 21:00 05/09/17 08:50 (Tears Naturale Opth Soln) 1 drop TID EACH EYE 05/03/17 09:00 05/09/17 12:45 (Duoneb Neb) 1 ampule Q2HR NEB PRN INH 05/02/17 19:30 05/04/17 12:42 Miscellaneous Information 1 Q361D XX 05/02/17 19:30 (Chlorhexidine 2% Cloth) Taper DAILY@04 TOP 05/03/17 04:00 04/29/18 03:59 (Chlorhexidine 2% Cloth) 3 pack UNSCH PRN TOP 05/02/17 19:30 (Senia-Colace) 1 tab BID PO 05/02/17 21:00 05/08/17 09:17 (Milk Of Magnesia Liq) 30 ml Q12H PRN PO 05/02/17 19:30 (Senokot) 17.2 mg Q12H PRN PO 05/02/17 19:30 (Dulcolax Supp) 10 mg DAILY PRN RECTAL 05/02/17 19:30 (Lactulose Liq) 30 ml DAILY PRN PO 05/02/17 19:30 (Peridex 0.12% Liq) 15 ml BID@08,20 MT 05/02/17 20:00 05/06/17 08:00 Propofol 100 ml @ 2.139 mls/ hr TITRATE PRN IV 05/02/17 22:30 05/05/17 14:05 Miscellaneous Information D/C ICU ELECTROLYTE ORDERS... UNSCH PRN .XX 05/03/17 00:30 Miscellaneous Information ICU - CALL ORDERING PHYSIC... UNSCH PRN .XX 05/03/17 00:30 Potassium Chloride 100 ml @ 25 mls/hr UNSCH PRN IV 05/03/17 00:30 05/04/17 23:28 (K-Lyte Cl Eff) 50 meq UNSCH PRN PO 05/03/17 00:30 Potassium Chloride 100 ml @ 50 mls/hr UNSCH PRN IV 05/03/17 00:30 05/05/17 20:25 Magnesium Sulfate 4 gm/Sodium Chloride 108 ml @ 54 mls/hr UNSCH PRN IV 05/03/17 00:30 Magnesium Sulfate 2 gm/Sodium Chloride 104 ml @ 52 mls/hr UNSCH PRN IV 05/03/17 00:30 (Mag-Ox) 800 mg UNSCH PRN PO 05/03/17 00:30 Sodium Phosphate 30 mmol/Sodium Chloride 260 ml @ 43.333 mls/ hr UNSCH PRN IV 05/03/17 00:30 05/03/17 06:31 (K-Phos) 2,000 mg UNSCH PRN PO 05/03/17 00:30 Potassium Phosphate 30 mmol/ Sodium Chloride 260 ml @ 43.333 mls/ hr UNSCH PRN IV 05/03/17 00:30 Sodium Chloride 1,000 ml @ 10 mls/hr Q24H IV 05/04/17 10:15 05/06/17 09:38 (Trandate Inj) 20 mg Q4H PRN IV PUSH 05/04/17 10:30 05/06/17 08:50 (Morphine Inj) 2 mg Q2H PRN IV PUSH 05/04/17 16:30 05/06/17 08:35 (Lovenox Inj) 40 mg Q24H SQ 05/05/17 19:00 Future Hold 05/06/17 20:40 Piperacillin Sod/ Tazobactam Sod 100 ml @ 200 mls/hr Q6H IV 05/05/17 16:00 05/09/17 10:12 (Zofran Inj) 4 mg Q6H PRN IV PUSH 05/05/17 17:45 05/05/17 17:56 (Lopressor) 25 mg Q12HR PO 05/07/17 13:00 05/09/17 08:47 (Ecotrin Ec) 81 mg DAILY PO 05/07/17 17:30 05/09/17 08:51 (Prinivil) 5 mg DAILY PO 05/08/17 09:00 05/09/17 08:48 Cefazolin Sodium/ Dextrose 50 ml @ 100 mls/hr Q8H IV 05/08/17 23:00 05/09/17 15:29 05/09/17 07:31 Miscellaneous Information ALL NURSING DEPARTME... UNSCH PRN .XX 05/08/17 19:15 05/09/17 19:14 (Lasix) 20 mg BID@09,18 PO 05/09/17 09:00 05/09/17 08:54 A/P Assessment and Plan Anoxic encephalopathy -CT brain 05/02 negative. - EEG - by hemisphere slowing. No epileptiform features. - D/c versed, fentanyl, propofol. - Watch for seizures. - Resolved. Acute Respiratory failure - resolved - Intubated for airway protection, posteriorly extubated - DuoNeb scheduled and when necessary - Extubated 05/06, parameters acceptable. Follow right infiltrate -> resolving. Cardiac arrest - V. fib arrest - Therapeutic hypothermia protocol completed. 05/08 sp cath and EP study. Cardiology following. Repeat CXR shows defect and PTX cannot be ruled out. Ordered repeat CXR in expiration and erect position. discussed with Dr Moy. 05/09 Repeat CXR ruled out PTX. HTN - 2-D echo 05/04 - Echo with EF 60-65%. No definite wall motion abnormalities. - Metoprolol 12.5 mg po bid for HTN per Cardiology - Troponin elevation mild 0.41. - EKG c/w old inferior lateral MA. 05/09 BP severely elevated this am in the 170's. Will resume home amlodipine. Acute kidney injury (resolved) - Creatinine normalized with IV fluid hydration. KVO IVF and may diurese some to facilitate weaning. - Strict I's and O's - Electrolyte replacement per ICU protocol ID Acute aspiration pneumonia Fever Leukocytosis Send blood cultures, U/a and urine culture, CXR, repeat sputum culture. Followed up CXR which showed RLL infiltrate, will initiate Zosyn 4.5 IV q6 hours and Levaquin 750 mg IV q24 hours. 05/08 DC Levaquin - continue IV Zosyn 05/09 Will DC Zosyn and start Augmentin. Endocrine Acute stress hyperglycemia (resolved) -Euglycemic, not requiring insulin coverage Hypokalemia 05/09 Likely due to diarrhea. Chec c diff since patient on IV antibiotics. Will start Lactobacillus acidophilus. Replace orally and IV. Ordered 80 meq of KCL earlier. Will recheck BMP and replace - goal K >4.0. Diarrhea Will check C diff. r/i C diff given that patient previously on Zosyn and Levaquin IV started by human resources services specialist. DVT GI prophylaxis - Teds SCDs - Changed to Lovenox 40 mg subcutaneous daily - Pepcid 20 mg IV q12 hours. ACCESS: Left femoral heat exchange catheter placed 05/03 #3. Removed 05/04 Radial art line 05/03 has been removed. Tani Lozano MD May 09, 2017 14:09
[2017-05-09 16:35] LABS: C. DIFF EPI 027 PRESUMPTIVE NEGATIVE (NEGATIVE)
[2017-05-09] MEDS: LACTOBACILLUS ACIDOPHILUS TAB PO SCH (16:56)
[2017-05-09] MEDS: CLINDAMYCIN 150 MG CAP PO SCH ×2 (16:57→22:01)
[2017-05-09 18:15] LABS: BICARBONATE 26.6 MEQ/L (21.0-32.0); POTASSIUM 3.2 MEQ/L (3.5-5.1)
[2017-05-09] MEDS ORDERED: LOPERAMIDE HCL 2 MG CAP PO PRN (20:45)
[2017-05-09] MEDS ORDERED: LOPERAMIDE HCL 2 MG CAP PO ONE (20:45)
[2017-05-09] MEDS ORDERED: POTASSIUM CHLOR 10 MEQ PREMIX 100 ML IV SCH (21:00)
[2017-05-10] VITALS (12 sets, daily range): BP systolic 138–172; BP diastolic 68–88; PULSE 73–82; RESP 19–20; TEMP 98–98.2; O2SAT 94
[2017-05-10] MEDS ORDERED: POTASSIUM CHLOR 10 MEQ PREMIX 100 ML IV ONE (00:30)
[2017-05-10] MEDS ORDERED: SODIUM CHLORID 0.9% 500 ML INJ 500 ML IV SCH (00:30)
[2017-05-10] MEDS ORDERED: POTASSIUM CHLORIDE 25 MEQ EFFERVESCENT TAB PO ONE (00:30)
[2017-05-10] MEDS: CHLORHEXIDINE GLUCONATE 2 % 1 PACK (2 CLOTHS) TOP SCH (04:00)
[2017-05-10] MEDS: CLINDAMYCIN 150 MG CAP PO SCH (05:25)
[2017-05-10] MEDS: CHLORHEXIDINE 0.12% (ORAL KIT) 15 ML CUP MT SCH (08:00)
[2017-05-10] MEDS: SODIUM CHLORIDE 0.9% FLUSH 10 ML FLUSH IV FLUSH SCH (08:40)
[2017-05-10] MEDS: ARTIFICIAL TEARS OPTH SOLN 15 ML BTL EACH EYE SCH ×2 (08:41→10:27)
[2017-05-10] MEDS: METOPROLOL TARTRATE 25 MG TAB PO SCH (08:41)
[2017-05-10] MEDS: FUROSEMIDE 20 MG TAB PO SCH (08:41)
[2017-05-10] MEDS: FAMOTIDINE 20 MG/2 ML VIAL IV PUSH SCH (08:41)
[2017-05-10] MEDS: ASPIRIN EC 81 MG TABEC PO SCH (08:42)
[2017-05-10] MEDS: amLODIPine BESYLATE 5 MG TAB PO SCH (08:42)
[2017-05-10] MEDS: DOCUSATE SODIUM 50 MG/SENNA 8.6 MG TAB PO SCH (08:43)
[2017-05-10] MEDS: LACTOBACILLUS ACIDOPHILUS TAB PO SCH ×2 (08:43→12:58)
[2017-05-10] MEDS ORDERED: LISINOPRIL 10 MG TAB PO SCH (09:00)
[2017-05-10] MEDS: SODIUM CHLOR 0.45% 1000 ML INJ 1,000 ML IV SCH (10:04)
[2017-05-10] MEDS ORDERED: CLIN150 PO (11:32)
[2017-05-10] MEDS ORDERED: LACT PO (11:32)
[2017-05-10] MEDS ORDERED: FURO20TA PO (11:32)
[2017-05-10] MEDS ORDERED: LISI10TA3 PO (11:32)
[2017-05-10] MEDS ORDERED: ECASA81 PO (11:32)
--- NOTE | 2017-05-10 11:33 | HHI.DCPOC ---
Discharge Care Plan Diagnosis: (1) HTN (hypertension) (2) Hyperlipidemia (3) CAD (coronary artery disease) (4) Syncope (5) Ventricular fibrillation (6) Encephalopathy (7) Diarrhea (8) TONY (acute kidney injury) (9) Aspiration pneumonia (10) Hypokalemia Goals to Promote Your Health * To prevent worsening of your condition and complications * To maintain your health at the optimal level Directions to Meet Your Goals Take your medications as prescribed Follow your dietary instruction Follow activity as directed Keep your appointments as scheduled Take your immunizations and boosters as scheduled If your symptoms worsen call your PCP, if no PCP go to Urgent Care Center or Emergency Room Smoking is Dangerous to Your Health. Avoid second hand smoke Call the 24-hour hour crisis hotline for domestic abuse at Tani Lozano MD May 10, 2017 11:33
[2017-05-10 12:08] LABS: POTASSIUM 3.5 MEQ/L (3.5-5.1)
[2017-05-10] MEDS ORDERED: POTASSIUM CHLORIDE 10 MEQ CONTROLLED RELEASE TAB PO ONE (13:00)
--- NOTE | 2017-05-15 09:54 | HHI.DS ---
Discharge Summary Admission Date May 02, 2017 at 19:19 Discharge Date: May 10, 2017 Admitting Diagnosis syncope, ventricular fibrillation Brief History - From Admission 60-70 something year-old female who presents after a syncopal episode. EMS states the patient was sitting on a bench when she apparently had a syncopal episode. When EMS arrived she was GCS was 3, she has spontaneous circulation with a positive radial pulse, and had spontaneous breathing. When they place the patient into the ambulance truck she became agonal with respirations and then went into ventricular fibrillation. They defibrillated the patient twice, she received 1 mg of epinephrine intravenously, and CPR was performed for 5 minutes. EMS states they got return of spontaneous circulation with initial heart rate in the 130s to 140s. They felt there was possible ST elevation in 2 , 3, and aVF, therefore, called a STEMI in the field. Upon arrival the patient is intubated, she required no medications for intubation, with an IO in the left lower extremity. During my evaluation and assessment patient was nonverbal , intubated, not withdrawing to pain. She was immediately evaluated by Dr. Greene white washer piler on-call who is planning to proceed further cardiac workup if there is meaningful neurological improvement. Due to poor neurological exam the therapeutic hypothermia protocol was initiated. Shortly after the transfer to ICU patient starts withdrawing to pain neurologically improving. Imaging Last Impressions Chest X-Ray 05/08/17 0000 Signed Impressions: Service Date/Time: Monday, May 08, 2017 21:09 - CONCLUSION: No evidence of pneumothorax on this upright expiratory view of the chest. Sidney Nguyen MD Abdomen X-Ray 05/05/17 0000 Signed Impressions: Service Date/Time: Friday, May 05, 2017 19:41 - CONCLUSION: 1. No acute findings. Erik Javed MD Head CT 05/02/17 0000 Signed Impressions: Service Date/Time: Tuesday, May 02, 2017 19:04 - CONCLUSION: 1. No acute intracranial abnormalities. Erik Javed MD PE at Discharge GENERAL: Extubated 05/06, responsive. SKIN: dry, no rash. HEAD: Atraumatic. Normocephalic. EYES: Pupils equal and round. Pupils 2 mm bilateral and reactive. ENT: No nasal bleeding or discharge. NECK: Trachea midline. Airway widely patent. CARDIOVASCULAR: Regular RR, NL S1S2. No JVD. ICD site covered C/D/I. RESPIRATORY: Bilateral breath sounds, clear. Strong cough effort. GASTROINTESTINAL: Abdomen soft, non-tender, nondistended. BS active. MUSCULOSKELETAL: No obvious deformities. No clubbing. No cyanosis. No edema. Well perfused. Left arm on sling. NEUROLOGICAL: Eyes open, follows commands. Moves 4 limbs with 5/5 strength. O X 3. Pt Condition on Discharge: Stable Discharge Disposition: Rehab Inpatient Discharge Time: > 30 minutes Discharge Instructions DIET: Follow Instructions for: Heart Healthy Diet Activities you can perform: Regular-No Restrictions, See Additionl Instruction Other Activity Instructions: OOB with assistance only. As per PT instructions. Follow up Referrals: Cardiology - 2 Weeks with Deanna Moy MD PCP Follow-up - 2 Weeks New Medications: Aspirin DR (Aspirin DR) 81 Mg Tabdr 81 MG PO DAILY for Blood Clot Prevention, #31 TAB Clindamycin (Cleocin) 150 Mg Cap 450 MG PO Q8HR for Infection, #15 CAP Furosemide (Furosemide) 20 Mg Tab 20 MG PO BID@09,18 for Shortness of Breath, #62 TAB Lactobacillus Acidophilus (Acidophilus/l-Sporogenes) 35 Million Cell-25 Million Cell Tab 1 TAB PO TID for Diarrhea, #15 TAB Lisinopril (Lisinopril) 10 Mg Tab 10 MG PO DAILY for Blood Pressure Management, #31 TAB Continued Medications: Amlodipine (Norvasc) 5 Mg Tab 7.5 MG PO DAILY for Blood Pressure Management, #30 TAB 0 Refills Simvastatin (Simvastatin) 20 Mg Tab 20 MG PO HS for Cholesterol Management, #30 TAB 0 Refills Discontinued Medications: Dicyclomine HCl (Dicyclomine HCl) 10 Mg/5 Ml (5 Ml) Solution 1 CAP PO BID Tani Lozano MD May 15, 2017 09:54
== END 2017-05-10 13:30 | DRG 224 ==
LOC: NEPC 18:55 → NEDA 19:19 → EDBD 19:19 → N03B 19:45 → HCPC 05-07 18:35
PROVIDERS: ADMIT Hospitalist; ATTEND Hospitalist
PROC: 0BH17EZ Insertion of Endotracheal Airway into Trachea, Via Natural or Artificial Opening (ICD-10-PCS; 2017-05-02)
PROC: 5A1945Z Respiratory Ventilation, 24-96 Consecutive Hours (ICD-10-PCS; 2017-05-02)
PROC: 02HV33Z Insertion of Infusion Device into Superior Vena Cava, Percutaneous Approach (ICD-10-PCS; 2017-05-03)
PROC: 03HY32Z Insertion of Monitoring Device into Upper Artery, Percutaneous Approach (ICD-10-PCS; 2017-05-03)
PROC: 4A133B1 Monitoring of Arterial Pressure, Peripheral, Percutaneous Approach (ICD-10-PCS; 2017-05-03)
PROC: 4A133J1 Monitoring of Arterial Pulse, Peripheral, Percutaneous Approach (ICD-10-PCS; 2017-05-03)
PROC: 4A023N7 Measurement of Cardiac Sampling and Pressure, Left Heart, Percutaneous Approach (ICD-10-PCS; 2017-05-07)
PROC: B2111ZZ Fluoroscopy of Multiple Coronary Arteries using Low Osmolar Contrast (ICD-10-PCS; 2017-05-07)
PROC: B2151ZZ Fluoroscopy of Left Heart using Low Osmolar Contrast (ICD-10-PCS; 2017-05-07)
PROC: 02HK3KZ Insertion of Defibrillator Lead into Right Ventricle, Percutaneous Approach (ICD-10-PCS; 2017-05-08)
PROC: 02H63KZ Insertion of Defibrillator Lead into Right Atrium, Percutaneous Approach (ICD-10-PCS; 2017-05-08)
PROC: 4A023FZ Measurement of Cardiac Rhythm, Percutaneous Approach (ICD-10-PCS; 2017-05-08)
PROC: 4A0234Z Measurement of Cardiac Electrical Activity, Percutaneous Approach (ICD-10-PCS; 2017-05-08)
PROC: 0JH608Z Insertion of Defibrillator Generator into Chest Subcutaneous Tissue and Fascia, Open Approach (ICD-10-PCS; principal; 2017-05-08 16:15)
DX: I49.01 Ventricular fibrillation (principal); J69.0 Pneumonitis due to inhalation of food and vomit; N17.9 Acute kidney failure, unspecified; G93.1 Anoxic brain damage, not elsewhere classified; R55 Syncope and collapse; E16.2 Hypoglycemia, unspecified; I25.2 Old myocardial infarction; I10 Essential (primary) hypertension; E78.5 Hyperlipidemia, unspecified; I25.5 Ischemic cardiomyopathy; I25.10 Atherosclerotic heart disease of native coronary artery without angina pectoris; R19.7 Diarrhea, unspecified; E87.6 Hypokalemia
CPT/HCPCS: 33249; 36556; 36600; 70450; 71010; 74000; 80048; 80053; 80061; 81001; 81003; 82550; 82552; 82805; 82948; 83605; 83735; 84100; 84155; 84484; 85007; 85025; 85027; 85610; 85730; 87040; 87070; 87205; 87493; 87641; 93005; 93306; 93458; 93620; 94002; 94003; 94150; 94640; 94664; 95819; C1721; C1730; C1769; C1779; C1893; C1895; J0131; J0690; J1580; J1644; J1650; J1940; J1956; J2175; J2250; J2270; J2405; J2543; J3010; J3370; J3475; J3480; J7030; J7040; J7050; Q9967